=== PATIENT | male | born 1995 ===

== ENCOUNTER 2017-03-19 21:13 | Inpatient (IN) | payer MEDICAID ==
[2017-03-19 21:17] VITALS: BMI 32.5
--- NOTE | 2017-03-19 21:27 | ED PDOC ---
Arrival/HPI - General Chief Complaint: Male Genitourinary Time Seen by Provider: 03/19/17 21:20 Historian: Patient - History of Present Illness Narrative History of Present Illness (Text): 03/19/17 21:27 Manuel Cortes is a 21 year old male, whose past medical history includes cellulitis, who presents to the Emergency department complaining of inflammation , swelling, and discomfort to genital/scrotal area. Patient states he was admitted to [facility] [place] [facility] for the past 5 days for similar complaints and and recently discharged. Patient states he was treated with IV antibiotics and analgesics, sent home today, and told to take NSAIDs. Patient states swelling, redness, and pain to the area has gotten worse. Patient denies any history of known fever, chills, vomiting, diarrhea, urinary symptoms, back pain, headache, or any other complaints. Symptom Onset: Gradual Symptom Course: Unchanged Activities at Onset: Rest, Light Context: Home Past Medical History - Provider Review Nursing Documentation Reviewed: Yes - Infectious Disease Hx of Infectious Diseases: None - Psychiatric Hx Substance Use: Yes (weed) - Anesthesia Hx Anesthesia: No Family/Social History - Physician Review Nursing Documentation Reviewed: Yes Family/Social History: Unknown Family HX Smoking Status: Light Smoker < 10 Cigarettes Daily Hx Alcohol Use: Yes Frequency of alcohol use: Socially Hx Substance Use: Yes (weed) Allergies/Home Meds Allergies/Adverse Reactions: Allergies No Known Allergies Allergy (Verified 03/19/17 21:17) Home Medications: Home Meds Medication Instructions Recorded Confirmed No Known Home Med 03/19/17 03/19/17 Review of Systems - Physician Review All systems were reviewed & negative as marked: Yes - Review of Systems Constitutional: Normal. absent: Fevers Eyes: Normal ENT: Normal Respiratory: Normal. absent: SOB, Cough Cardiovascular: Normal. absent: Chest Pain Gastrointestinal: Normal. absent: Abdominal Pain, Diarrhea, Nausea, Vomiting Genitourinary Male: Other (+genital/scrotal swelling). absent: Dysuria, Frequency, Hematuria Musculoskeletal: Normal. absent: Back Pain, Neck Pain Skin: Normal. absent: Rash Neurological: Normal. absent: Headache, Dizziness Endocrine: Normal Hemo/Lymphatic: Normal Psychiatric: Normal Physical Exam Vital Signs Reviewed: Yes Vital Signs Temp Pulse Resp BP Pulse Ox 03/19/17 21:20 98.4 F 98 H 18 118/77 98 Temperature: Afebrile Blood Pressure: Normal Pulse: Regular Respiratory Rate: Normal Appearance: Positive for: Well-Appearing, Non-Toxic, Comfortable Pain Distress: None Mental Status: Positive for: Alert and Oriented X 3 - Systems Exam Head: Present: Atraumatic, Normocephalic Pupils: Present: PERRL Extroacular Muscles: Present: EOMI Conjunctiva: Present: Normal Mouth: Present: Moist Mucous Membranes Neck: Present: Normal Range of Motion Respiratory/Chest: Present: Clear to Auscultation, Good Air Exchange. No: Respiratory Distress, Accessory Muscle Use Cardiovascular: Present: Regular Rate and Rhythm, Normal S1, S2. No: Murmurs Abdomen: Present: Normal Bowel Sounds. No: Tenderness, Distention, Peritoneal Signs Genitourinary Male: Present: Testicle Tenderness (Diffuse palpable tenderness), Erythema (Confluent erythema to scrotum, induration to right posterior scrotal area. Extension of swelling/erythema to right inguinal area. Palpable right inguinal adenopathy), Testicle Swelling (Massive scrotal swelling), Other (Left testes palpated, right testes is difficult to palpate due to scrotal induration/ swelling). No: Penile Discharge Back: Present: Normal Inspection Upper Extremity: Present: Normal Inspection. No: Cyanosis, Edema Lower Extremity: Present: Normal Inspection. No: Edema Neurological: Present: GCS=15, CN II-XII Intact, Speech Normal Skin: Present: Warm, Dry, Normal Color. No: Rashes Lymphatic: Present: Inguinal Adenopathy (Right inguinal adenopathy) Psychiatric: Present: Alert, Oriented x 3, Normal Insight, Normal Concentration Medical Decision Making ED Course and Treatment: 03/19/17 21:27 Impression: 21 year old male complaining of inflammation, swelling, and discomfort to genital/scrotal area. Differential Diagnosis included but are not limited to: cellulitis Plan: -- US Testes -- Labs, blood culture -- IV fluids -- Reassess and disposition Progress Notes: 03/19/17 22:27 Case discussed with medical office supervisor associate application developer, who is aware and agrees with plan. 03/19/17 23:41 Reviewed sono, US Testes shows: Right testicle: Unremarkable in size measuring 5.5 x 2.7 x 3.7 cm. No intratesticular mass. No torsion. Microlithiasis is detected. Left testicle: Unremarkable in size measuring 5.8 x 2.8 x 3.5 cm. No intratesticular mass. No torsion. Microlithiasis is detected. Epididymides: Unremarkable in echogenicity and size. Scrotum: Avascular focus of mixed echogenicity is identified within the right scrotal wall, corresponding to the area of clinical concern. This focus measures 15 x 10 x 15 mm. This focus demonstrates increased through-transmission, suggesting a complex cyst. IMPRESSION: Findings within the right scrotal sac which suggest a history of prior trauma, possibly a hematocoele. The differential diagnosis also includes an extra testicular lipoma. Although a liposarcoma cannot be excluded. Further evaluation, nonemergently with contrast-enhanced MRI (with fat suppressed sequences) is suggested. 03/19/17 23:[address] Mojica, who is aware and agrees with plan. Accepts pt in to hospitalist service. [facility] vice president of news notified. - Lab Interpretations Lab Results: 03/19/17 22:01 03/19/17 22:01 Lab Results 03/19/17 22:01: WBC 8.9, RBC 4.70, Hgb 13.9 L, Hct 40.4 L, MCV 86.0, MCH 29.6, MCHC 34.4, RDW 12.6, Plt Count 254, MPV 11.5 H 03/19/17 22:01: Sodium 141, Potassium 4.0, Chloride 98, Carbon Dioxide 29, Anion Gap 18, BUN 11, Creatinine 0.8, Est GFR ( Amer) > 60, Est GFR (Non- Af Amer) > 60, Random Glucose 145 H, Calcium 9.8, Total Bilirubin 0.3, AST 22, ALT 29, Alkaline Phosphatase 102, Total Protein 7.5, Albumin 4.2, Globulin 3.3, Albumin/Globulin Ratio 1.3 I have reviewed the lab results: Yes - RAD Interpretation Radiology Orders: 03/19/17 21:49 TESTES DUPLEX COMPLETE [US] Stat Shear Helper: Radiologist - Medication Orders Current Medication Orders: Sodium Chloride (Sodium Chloride 0.9%) 1,000 mls @ 100 mls/hr IV .Q10H CRISTHIAN Last Admin: 03/19/17 22:10 Dose: 100 mls/hr Discontinued Medications Vancomycin HCl (Vancomycin 1gm) 1 gm in 250 mls @ 167 mls/hr IVPB STAT STA PRN Reason: Protocol Stop: 03/19/17 23:32 Last Admin: 03/19/17 23:54 Dose: 167 mls/hr Ceftriaxone Sodium (Rocephin 1 Gram Ivpb) 1 gm in 100 mls @ 200 mls/hr IV ONCE STA PRN Reason: Protocol Stop: 03/19/17 22:30 Last Admin: 03/19/17 22:11 Dose: 200 mls/hr Ketorolac Tromethamine (Toradol) 30 mg IVP ONCE ONE Stop: 03/19/17 22:19 Last Admin: 03/19/17 23:41 Dose: 30 mg - Scribe Statement The provider has reviewed the documentation as recorded by the Sweetie Lizama Provider Scribe Attestation: All medical record entries made by the Scribe were at my direction and personally dictated by me. I have reviewed the chart and agree that the record accurately reflects my personal performance of the history, physical exam, medical decision making, and the department course for this patient. I have also personally directed, reviewed, and agree with the discharge instructions and disposition. Disposition/Present on Arrival - Present on Arrival Any Indicators Present on Arrival: No History of DVT/PE: No History of Uncontrolled Diabetes: No Urinary Catheter: No History of Decub. Ulcer: No History Surgical Site Infection Following: None - Disposition Have Diagnosis and Disposition been Completed?: Yes Diagnosis: Cellulitis of scrotum Disposition: HOSPITALIZED Disposition Time: 23:57 Condition: STABLE Discharge Instructions (ExitCare): Cellulitis (ED) Referrals: Jamie Esparza, [Primary Care Provider] - Follow up with primary Forms: [employer] (Malay)
[2017-03-19] MEDS ORDERED: Sodium Chloride 0.9% 1,000 ML IV SCH (21:45)
[2017-03-19] MEDS ORDERED: cefTRIAXone 1 gm 1 GM/100 ML BAG IV STA (22:01)
[2017-03-19] MEDS ORDERED: Vancomycin 1gm in NS 250ml 1 GM/250 ML BAG IVPB STA (22:03)
[2017-03-19 22:19] LABS: HEMATOCRIT 40.4 % (42.0-52.0); MEAN CORPUSCULAR HEMOGLOBIN 29.6 pg (25.0-35.0); MEAN CORPUSCULAR HGB CONC 34.4 g/dl (31.0-37.0); MEAN PLATELET VOLUME 11.5 fl (7.0-11.0); RED CELL DISTRIBUTION WIDTH 12.6 % (11.5-14.5); WHITE BLOOD COUNT 8.9 10^3/ul (4.5-11.0)
[2017-03-19 22:27] LABS: ALB/GLOB RATIO 1.3 (1.1-1.8); ALKALINE PHOSPHATASE 102 U/L (38-133); ALT/SGPT 29 U/L (7-56); AST/SGOT 22 U/L (15-59); BILIRUBIN,TOTAL 0.3 mg/dL (0.2-1.3); BLOOD UREA NITROGEN 11 mg/dL (7-21); CALCIUM 9.8 mg/dL (8.4-10.5); CARBON DIOXIDE 29 mmol/L (21-33); CHLORIDE 98 mmol/L (98-107); GFR AFRICAN-AMERICAN > 60; GLUCOSE,RANDOM 145 mg/dL (70-110); SODIUM 141 mmol/L (132-148); TOTAL PROTEIN 7.5 g/dL (5.8-8.3)
--- NOTE | 2017-03-19 23:38 | US ---
EXAM: US Scrotum CLINICAL HISTORY: 21 years old, male; Pain; Scrotum pain; Additional info: Scrotal swelling TECHNIQUE: Real-time ultrasound of the scrotum with color Doppler and image documentation. COMPARISON: No relevant prior studies available. FINDINGS: Right testicle: Unremarkable in size measuring 5.5 x 2.7 x 3.7 cm. No intratesticular mass. No torsion. Microlithiasis is detected. Left testicle: Unremarkable in size measuring 5.8 x 2.8 x 3.5 cm. No intratesticular mass. No torsion. Microlithiasis is detected. Epididymides: Unremarkable in echogenicity and size. Scrotum: Avascular focus of mixed echogenicity is identified within the right scrotal wall, corresponding to the area of clinical concern. This focus measures 15 x 10 x 15 mm. This focus demonstrates increased through-transmission, suggesting a complex cyst. IMPRESSION: Findings within the right scrotal sac which suggest a history of prior trauma, possibly a hematocoele. The differential diagnosis also includes an extra testicular lipoma. Although a liposarcoma cannot be excluded. Further evaluation, nonemergently with contrast-enhanced MRI (with fat suppressed sequences) is suggested.
[2017-03-20 01:15] LABS: PH,URINE 7.5 (4.7-8.0); URINE BILIRUBIN SMALL (NEGATIVE); URINE BLOOD NEGATIVE (NEGATIVE); URINE GLUCOSE (UA) NEGATIVE (NEGATIVE); URINE KETONE TRACE mg/dL (NEGATIVE); URINE LEUKOCYTE ESTERASE NEGATIVE Leu/uL (NEGATIVE); URINE PROTEIN 30 mg/dL (<30 mg/dL)
[2017-03-20 01:21] LABS: URINE APPEARANCE CLEAR (CLEAR); URINE COLOR YELLOW (YELLOW)
--- NOTE | 2017-03-20 01:21 | CP.PCM.HP ---
<Sherman Simon - Last Filed: 03/20/17 05:11> History of Present Illness - History of Present Illness History of Present Illness: CC: Scrotal swelling HPI: 21 year old male with scrotal swelling, painless scrotal and perineal ulcers, and bilateral lymphadenopathy who was evaluated and treated at [facility] from 03/15- 03/19 for the aforementioned symptoms but presents to [facility] because he feel he has not improved. He states he was treated with IV antibiotics, analgesia, and tested for STI while at [facility]. He denies any knowledge in regards to the results of the test ordered or the etiology of his current symptoms and manifestations. He states after his hospital stay he was discharged with antibiotics, which he cannot recall, and Ibuprofen. He went back to work today and reports that his scrotum was quite irritating him given it was still enlarged and burnt along the groin area while he walked. He denies any fever, chills, dysuria, penile lesions/ulcerations, or pain or history of STI. He denies having any sexual contact within the last three months, male or female. 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 Present on Admission - Present on Admission Any Indicators Present on Admission: No Review of Systems - Constitutional Constitutional: absent: Chills, Headache, Snoring, Weakness - EENT Eyes: absent: Decreased Night Vision, Loss of Peripheral Vision Ears: absent: Decreased Hearing, Ear Discharge, Dizziness Nose/Mouth/Throat: absent: Sinus Pressure, Bleeding Gums, Halitosis - Cardiovascular Cardiovascular: absent: Chest Pain with Activity, Irregular Heart Rhythm, Leg Edema - Respiratory Respiratory: absent: As Per HPI, Pain on Inspiration, Excessive Mucous Production - Gastrointestinal Gastrointestinal: absent: Cramping, Diarrhea, Early Satiety - Genitourinary Genitourinary: absent: Change in Urinary Stream, Urinary Frequency, Urinary Urgency - Reproductive: Male Reproductive:Male: Genital Lesions - Musculoskeletal Musculoskeletal: absent: Limited Range of Motion, Myalgias, Numbness - Integumentary Integumentary: absent: New Lesions, Photosensitivity, Skin Ulcer - Neurological Neurological: absent: Dizziness, Headaches, Restless Legs - Psychiatric Psychiatric: absent: Behavioral Changes, Homicidal Ideation, Irritability - Endocrine Endocrine: absent: Excessive Sweating, Heat Intolorance, Increase in Ring/Shoe/ Hat Size - Hematologic/Lymphatic Hematologic: absent: Easy Bleeding, Easy Bruising Past Patient History - Infectious Disease Hx of Infectious Diseases: None - Past Social History Smoking Status: Light Smoker < 10 Cigarettes Daily - PSYCHIATRIC Hx Substance Use: Yes (weed) - SURGICAL HISTORY Hx Surgeries: No - ANESTHESIA Hx Anesthesia: No Meds Allergies/Adverse Reactions: Allergies Allergy/AdvReac Type Severity Reaction Status Date / Time No Known Allergies Allergy Verified 03/19/17 21:17 Physical Exam - Constitutional Appears: Well, No Acute Distress - Head Exam Head Exam: ATRAUMATIC, NORMOCEPHALIC - Eye Exam Eye Exam: EOMI, Normal appearance Pupil Exam: NORMAL ACCOMODATION, PERRL - ENT Exam ENT Exam: Mucous Membranes Moist, Normal Oropharynx - Neck Exam Neck exam: Positive for: Normal Inspection. Negative for: Lymphadenopathy, Tenderness - Respiratory Exam Respiratory Exam: Clear to Auscultation Bilateral, NORMAL BREATHING PATTERN. absent: Accessory Muscle Use - Cardiovascular Exam Cardiovascular Exam: RRR, +S1, +S2 - GI/Abdominal Exam GI & Abdominal Exam: Normal Bowel Sounds, Soft. absent: Rebound, Rigid - Exam Exam: Scrotal Swelling. absent: Circumcision, Uretheral Discharge External exam: Lesions Additional comments: scrotal swelling greater on right than left, painless ulcerated lesion along midline scrotal fold with ulcers in the perineal area, bilateral inguinal lymphadenopathy, malodorous discharge also present - Extremities Exam Extremities exam: Positive for: normal inspection. Negative for: joint swelling , normal capillary refill - Back Exam Back exam: NORMAL INSPECTION. absent: CVA tenderness (L), CVA tenderness (R) - Neurological Exam Neurological exam: CN II-XII Intact, Normal Gait, Oriented x3 - Psychiatric Exam Psychiatric exam: Normal Affect, Normal Mood - Skin Skin Exam: Dry, Intact, Normal Color, Warm Results - Vital Signs Recent Vital Signs: Last Vital Signs Temp 98.1 F 03/20/17 00:07 Pulse 92 H 03/20/17 00:07 Resp 16 03/20/17 00:07 BP 119/87 03/20/17 00:07 Pulse Ox 98 03/20/17 00:07 - Labs Result Diagrams: 03/19/17 22:01 03/19/17 22:01 Assessment & Plan - Assessment and Plan (Free Text) Assessment: 21 male presenting with scrotal swelling, some discomfort, and findings suspicious for cellulitis vs STI. Plan: 1) Scrotal cellulitis: US IMPRESSION: Findings within the right scrotal sac which suggest a history of prior trauma, possibly a hematocoele. The differential diagnosis also includes an extratesticular lipoma. Although a liposarcoma cannot be excluded. Further evaluation, nonemergently with contrast- enhanced MRI (with fat suppressed sequences) is suggested. - F/U CT A/P with IV contrast to better characterize the anatomy. Patient did have a palpable mass, also seen on US, and reactive lymphadenopathy - Urology consulted given the complex nature of the cyst, though this is not a urologic emergency -Patient does not have any systemic signs of infection such as fever or leukocytosis, but this certainbly could be a locally infectious process - Clinically, did not appear to be a cellulitis 2) STI, gonococcal or non-gonococcal LGV is on differential - Contact [facility] by obtaining patient's DEMETRIUS in order to avoid reordering tests already performed. - Patient admits to STI testing being performed in previous facility, and was agreeable to sign DEMETRIUS - Doxycycline and Rocephin IV empirically started - ID consulted - Date & Time Date: 03/20/17 Time: 02:23 <Kaiden Mojica P - Last Filed: 03/22/17 08:28> Results - Vital Signs Recent Vital Signs: Last Vital Signs Temp 98.5 F 03/21/17 08:50 Pulse 68 03/21/17 08:50 Resp 20 03/21/17 08:50 BP 107/63 03/21/17 08:50 Pulse Ox 99 03/21/17 08:50 - Labs Result Diagrams: 03/21/17 06:30 03/21/17 06:30 Attending/Attestation - Attestation I have personally seen and examined this patient.: Yes I have fully participated in the care of the patient.: Yes I have reviewed all pertinent clinical information: Yes Notes (Text): Patient comes with scrotal swelling, ulcers, groin pain on exam found to have b/ l inguinal LN huber, induration on right scrotal wall with area of deep blister on right side. Pain less ulcer on the left side, with small ulcers at areas of skin contact between 2 legs. USG findings as above. Patient had w/u done at [facility] and discharged on this day of ER visit. DD is likely w/u for pain less ulcer, secondary cellulitis, std, will get the w/ u done at [facility], emperic rocephin and doxycyline ordered, ID consultation.
[2017-03-20 01:32] LABS: URINE EPITHELIAL CELLS 0 - 2 /hpf (0-5); URINE RBC 0 - 2 /hpf (0-2); URINE WBC 0 - 2 /hpf (0-6)
[2017-03-20] MEDS ORDERED: Iohexol 350 MG/100 ML VIAL ONE (07:24)
[2017-03-20] MEDS: cefTRIAXone 1 gm 1 GM/100 ML BAG IVPB SCH (09:21)
[2017-03-20] MEDS ORDERED: HYDROmorphone 2 mg/ml ISec IVP PRN (10:33)
--- NOTE | 2017-03-20 11:19 | CP.PCM.CON ---
History of Present Illness - History of Present Illness History of Present Illness: Consult Note for Surgery Dr. Taylor Patient is a 21 year old male with no significant past medical history who presented to [facility] 03/20/17 with complaints of scrotal swelling on his right testicle which started on 03/12. 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 Two days later patient noted an increase in pain and swelling. Patient was admitted to [facility] 03/15 and remained until 03/19 for which he was receiving IV antibiotics and analgesics. Since patient's symptoms did not improve patient decided to come to [facility]. Patient denies recent sexual intercourse, fevers, chills, abdominal pain, dysuria, n/v/d, constipation, h/a. PMH: None PSH: None SH: alcohol assumption on occasion, smokes 1/2 pack a day PFH: DM II Past Patient History - Infectious Disease Hx of Infectious Diseases: None - Past Social History Smoking Status: Light Smoker < 10 Cigarettes Daily - MUSCULOSKELETAL/RHEUMATOLOGICAL Hx Falls: No - GENITOURINARY/GYNECOLOGICAL Other/Comment: SCROTAL EDEMA, RT SIDED REDNESS TO TESTICLES - PSYCHIATRIC Hx Substance Use: Yes (weed) - SURGICAL HISTORY Hx Surgeries: No - ANESTHESIA Hx Anesthesia: No Meds Allergies/Adverse Reactions: Allergies Allergy/AdvReac Type Severity Reaction Status Date / Time No Known Allergies Allergy Verified 03/19/17 21:17 - Medications Medications: Current Medications Doxycycline Hyclate (Doryx) 100 mg PO Q12 CRISTHIAN PRN Reason: Protocol Last Admin: 03/20/17 09:21 Dose: 100 mg Famotidine (Pepcid) 40 mg PO HS CRISTHIAN Hydromorphone HCl (Dilaudid) 2 mg IVP Q4H PRN PRN Reason: Pain, severe (8-10) Sodium Chloride (Sodium Chloride 0.9%) 1,000 mls @ 100 mls/hr IV .Q10H CRISTHIAN Last Admin: 03/19/17 22:10 Dose: 100 mls/hr Ceftriaxone Sodium (Rocephin 1 Gram Ivpb) 1 gm in 100 mls @ 100 mls/hr IVPB DAILY CRISTHIAN PRN Reason: Protocol Last Admin: 03/20/17 09:21 Dose: 100 mls/hr Ibuprofen (Motrin Tab) 600 mg PO Q6H PRN PRN Reason: Pain, moderate (4-7) Last Admin: 03/20/17 07:55 Dose: 600 mg Tramadol HCl (Ultram) 50 mg PO TID PRN PRN Reason: Pain, moderate (4-7) Physical Exam - Constitutional Appears: Well - Head Exam Head Exam: ATRAUMATIC, NORMAL INSPECTION, NORMOCEPHALIC - Eye Exam Eye Exam: Normal appearance - ENT Exam ENT Exam: Mucous Membranes Moist, Normal Exam - Respiratory Exam Respiratory Exam: Clear to Auscultation Bilateral, NORMAL BREATHING PATTERN - Cardiovascular Exam Cardiovascular Exam: REGULAR RHYTHM, +S1, +S2 - GI/Abdominal Exam GI & Abdominal Exam: Normal Bowel Sounds, Soft - Exam Exam: Scrotal Swelling, Testicular Tenderness. absent: Circumcision Additional comments: draining abscess on left inner thigh - Neurological Exam Neurological exam: Alert, CN II-XII Intact, Oriented x3 - Skin Skin Exam: Normal Color, Warm Results - Vital Signs Recent Vital Signs: Last Vital Signs Temp 98.1 F 03/20/17 01:27 Pulse 61 03/20/17 01:27 Resp 185 H 03/20/17 01:27 BP 108/62 03/20/17 01:27 Pulse Ox 98 03/20/17 01:10 - Labs Result Diagrams: 03/19/17 22:01 03/19/17 22:01 Labs: Laboratory Results - last 24 hr 03/20/17 01:00 Urine Color Yellow Urine Appearance Clear Urine pH 7.5 Ur Specific [place] 1.020 Urine Protein 30 H Urine Glucose (UA) Negative Urine Ketones Trace H Urine Blood Negative Urine Nitrate Negative Urine Bilirubin Small H Urine Urobilinogen 1.0 H Ur Leukocyte Esterase Negative Urine RBC 0 - 2 Urine WBC 0 - 2 Ur Epithelial Cells 0 - 2 Urine Other Mucus Assessment & Plan - Assessment and Plan (Free Text) Assessment: 1. Testicular abscess - Patient made NPO - c/w pain medicine regimen - c/w antibiotics - OR for I&D 3:30 Philippe French D.O. PGY1
--- NOTE | 2017-03-20 13:19 | CT ---
PROCEDURE: CT Abdomen and Pelvis with contrast HISTORY: right scrotal mass, bilateral inguinal lymphadenop COMPARISON: Scrotal ultrasound 03/19/2017 TECHNIQUE: Contrast dose: 100 cc of Omni 350 Radiation dose: Total exam DLP = 868 mGy-cm. This CT exam was performed using one or more of the following dose reduction techniques: Automated exposure control, adjustment of the mA and/or kV according to patient size, and/or use of iterative reconstruction technique. FINDINGS: LOWER THORAX: Unremarkable. LIVER: Unremarkable. No gross lesion or ductal dilatation. GALLBLADDER AND BILE DUCTS: Unremarkable. PANCREAS: Unremarkable. No gross lesion or ductal dilatation. SPLEEN: Unremarkable. ADRENALS: Unremarkable. No mass. KIDNEYS AND URETERS: Unremarkable. No hydronephrosis. No solid mass. VASCULATURE: Unremarkable. No aortic aneurysm. BOWEL: Unremarkable. No obstruction. No gross mural thickening. APPENDIX: Normal appendix. PERITONEUM: Unremarkable. No free fluid. No free air. LYMPH NODES: There is extensive bilateral inguinal adenopathy with the largest nodes measuring 2 cm. BLADDER: Unremarkable. REPRODUCTIVE: Bilateral hydroceles are seen. There is a separate thick-walled fluid collection along the right side of the scrotum measuring 21 x 51 mm as seen on coronal image 40. There is a separate round collection measuring 14 mm seen on image 28. These findings are suspicious for abscess within the wall of the scrotum. This was also reported on ultrasound BONES: No acute fracture. OTHER FINDINGS: None. IMPRESSION: Inflammatory changes and fluid collections along the right side of the scrotum suspicious for abscess. Bilateral inguinal adenopathy
[2017-03-20] MEDS ORDERED: Midazolam 2 MG/2 ML VIAL ONE (15:28)
[2017-03-20] MEDS ORDERED: Propofol 10 mg/ml Inj (20 ML) ONE ×2 (15:28→15:55)
[2017-03-20] MEDS ORDERED: Lidocaine 2% Inj (20ml) ONE (15:33)
[2017-03-20] MEDS ORDERED: Bupivacaine 0.5% Inj(30mL) ONE (15:34)
[2017-03-20] MEDS ORDERED: Lidocaine 1% Inj (20ml) ONE (15:34)
--- NOTE | 2017-03-20 15:52 | CP.PCM.CON ---
History of Present Illness - History of Present Illness History of Present Illness: Infectious Disease Consultation: March 20, 2017 21 yo male with cellulitis and drainage from the scrotum as well as ulcerations. He was in [facility] from 03/15 to 03/19 for treatment. I will check the results at [facility]. He denies sexual contact recently. He does no know the results of the tests taken at [facility]. PMHx: denies PSHx: denies Allergies: NKDA Social Hx: tobacco 1/2 ppd, marijuana use, multiple sexual partners. He works in [employer]. Active Medications Doxycycline Hyclate (Doryx) 100 mg PO Q12 CRISTHIAN PRN Reason: Protocol Last Admin: 03/20/17 09:21 Dose: 100 mg Famotidine (Pepcid) 40 mg PO HS CRISTHIAN Hydromorphone HCl (Dilaudid) 2 mg IVP Q4H PRN PRN Reason: Pain, severe (8-10) Sodium Chloride (Sodium Chloride 0.9%) 1,000 mls @ 100 mls/hr IV .Q10H [facility] Last Admin: 03/19/17 22:10 Dose: 100 mls/hr Ceftriaxone Sodium (Rocephin 1 Gram Ivpb) 1 gm in 100 mls @ 100 mls/hr IVPB DAILY CRISTHIAN PRN Reason: Protocol Last Admin: 03/20/17 09:21 Dose: 100 mls/hr Ibuprofen (Motrin Tab) 600 mg PO Q6H PRN PRN Reason: Pain, moderate (4-7) Last Admin: 03/20/17 07:55 Dose: 600 mg Tramadol HCl (Ultram) 50 mg PO TID PRN PRN Reason: Pain, moderate (4-7) Family Hx: none given ROS: scrotal pain and swelling. He denies fevers, chills, nausea, vomiting, diarrhea , headaches, dizziness, chest pain, melena, hematuria, hematemesis, hematochezia , depression, anxiety Past Patient History - Infectious Disease Hx of Infectious Diseases: None - Past Social History Smoking Status: Light Smoker < 10 Cigarettes Daily - HEMATOLOGICAL/ONCOLOGICAL Hx Blood Transfusions: No Hx Blood Transfusion Reaction: No - MUSCULOSKELETAL/RHEUMATOLOGICAL Hx Falls: No - GENITOURINARY/GYNECOLOGICAL Other/Comment: SCROTAL EDEMA, RT SIDED REDNESS TO TESTICLES - PSYCHIATRIC Hx Substance Use: Yes (weed) - SURGICAL HISTORY Hx Surgeries: No - ANESTHESIA Hx Anesthesia: No Meds Allergies/Adverse Reactions: Allergies Allergy/AdvReac Type Severity Reaction Status Date / Time No Known Allergies Allergy Verified 03/19/17 21:17 - Medications Medications: Current Medications Doxycycline Hyclate (Doryx) 100 mg PO Q12 CRISTHIAN PRN Reason: Protocol Last Admin: 03/20/17 09:21 Dose: 100 mg Famotidine (Pepcid) 40 mg PO HS CRISTHIAN Hydromorphone HCl (Dilaudid) 2 mg IVP Q4H PRN PRN Reason: Pain, severe (8-10) Sodium Chloride (Sodium Chloride 0.9%) 1,000 mls @ 100 mls/hr IV .Q10H CRISTHIAN Last Admin: 03/19/17 22:10 Dose: 100 mls/hr Ceftriaxone Sodium (Rocephin 1 Gram Ivpb) 1 gm in 100 mls @ 100 mls/hr IVPB DAILY CRISTHIAN PRN Reason: Protocol Last Admin: 03/20/17 09:21 Dose: 100 mls/hr Ibuprofen (Motrin Tab) 600 mg PO Q6H PRN PRN Reason: Pain, moderate (4-7) Last Admin: 03/20/17 07:55 Dose: 600 mg Tramadol HCl (Ultram) 50 mg PO TID PRN PRN Reason: Pain, moderate (4-7) Physical Exam - Constitutional Appears: Non-toxic, No Acute Distress - Head Exam Head Exam: ATRAUMATIC, NORMOCEPHALIC - Eye Exam Eye Exam: EOMI, PERRL Pupil Exam: NORMAL ACCOMODATION, PERRL - ENT Exam ENT Exam: Mucous Membranes Moist, Normal External Ear Exam, TM's Normal Bilaterally - Neck Exam Neck exam: Positive for: Full Rom, Normal Inspection - Respiratory Exam Respiratory Exam: Clear to Auscultation Bilateral, NORMAL BREATHING PATTERN. absent: Rales, Rhonchi, Wheezes - Cardiovascular Exam Cardiovascular Exam: REGULAR RHYTHM, RRR, +S1, +S2 - GI/Abdominal Exam GI & Abdominal Exam: Normal Bowel Sounds, Soft. absent: Distended, Tenderness - Exam Exam: Scrotal Swelling, Testicular Tenderness. absent: NORMAL INSPECTION Additional comments: scrotal swelling greater on right than left, painless ulcerated lesion along midline scrotal fold with ulcers in the perineal area, bilateral inguinal lymphadenopathy, malodorous discharge also present - Extremities Exam Extremities exam: Positive for: full ROM, normal inspection - Neurological Exam Neurological exam: Alert, CN II-XII Intact, Oriented x3 - Psychiatric Exam Psychiatric exam: Normal Affect, Normal Mood - Skin Additional comments: normal except for scrotum (described above). Results - Vital Signs Recent Vital Signs: Last Vital Signs Temp 98 F 03/20/17 14:40 Pulse 55 L 03/20/17 14:40 Resp 20 03/20/17 14:40 BP 144/62 03/20/17 14:40 Pulse Ox 98 03/20/17 14:40 - Labs Result Diagrams: 03/19/17 22:01 03/19/17 22:01 Assessment & Plan - Assessment and Plan (Free Text) Assessment: 21 yo male with scrotal cellulitis and swelling with ulcerations and drainage. Cellulitis versus other etiology such as STD. Will review records at [facility]. On Doxycycline and Rocephin. Start Vancomycin and stop Doxycycline. May need to retest for STD depending on tests done at [facility]. Supportive care. Local wound care. Thank you for allowing me to participate in the care of the patient, we will follow with you.
[2017-03-20] MEDS ORDERED: Lactated Ringer's 1,000 ML IV SCH (16:46)
[2017-03-20] MEDS ORDERED: HYDROmorphone 0.5 mg/0.5 ml ISec IVP PRN (16:46)
--- NOTE | 2017-03-20 16:47 | PCM.SURG1 ---
Surgeon's Initial Post Op Note - Surgeon's Notes Surgeon: Dr. Taylor Utility Bill Complaints Investigator: Dr. Gutierrez PGY3, Dr. Omalley PGY1 Type of Anesthesia: General LMA Pre-Operative Diagnosis: right scrotal abscess, left groin abscess Operative Findings: see op report Post-Operative Diagnosis: same Operation Performed: right scrotal abscess incision and drainage w/ cavity exploration and blunt debridement. Left groin abscess drainage Specimen/Specimens Removed: right scrotal abscess culture and left groin abscess culture Estimated Blood Loss: EBL {In ML}: 25 Blood Products Given: N/A Drains Used: No Drains Post-Op Condition: Good Date of Surgery/Procedure: 03/20/17 Time of Surgery/Procedure: 16:47
[2017-03-20] MEDS ORDERED: Acetaminophen IV IVPB ONE (16:58)
[2017-03-20] MEDS: Vancomycin 1gm in NS 250ml 1 GM/250 ML BAG IVPB SCH (18:01)
[2017-03-20] MEDS: HYDROmorphone 0.5 mg/0.5 ml ISec IVP PRN ×2 (18:21→22:10)
[2017-03-21] MEDS: Vancomycin 1gm in NS 250ml 1 GM/250 ML BAG IVPB SCH (03:18)
[2017-03-21] MEDS: HYDROmorphone 0.5 mg/0.5 ml ISec IVP PRN ×2 (03:19→06:51)
[2017-03-21 07:13] LABS: HEMATOCRIT 40.5 % (42.0-52.0); MEAN CORPUSCULAR HEMOGLOBIN 29.3 pg (25.0-35.0); MEAN CORPUSCULAR HGB CONC 34.8 g/dl (31.0-37.0); MEAN PLATELET VOLUME 11.5 fl (7.0-11.0); RED CELL DISTRIBUTION WIDTH 12.5 % (11.5-14.5); WHITE BLOOD COUNT 12.5 10^3/ul (4.5-11.0)
[2017-03-21 07:27] LABS: ALB/GLOB RATIO 1.2 (1.1-1.8); ALKALINE PHOSPHATASE 96 U/L (38-133); ALT/SGPT 34 U/L (7-56); AST/SGOT 22 U/L (15-59); BILIRUBIN,TOTAL 0.4 mg/dL (0.2-1.3); BLOOD UREA NITROGEN 7 mg/dL (7-21); CALCIUM 9.6 mg/dL (8.4-10.5); CARBON DIOXIDE 26 mmol/L (21-33); CHLORIDE 102 mmol/L (95-110); GFR AFRICAN-AMERICAN > 60; GLUCOSE,RANDOM 101 mg/dL (70-110); POTASSIUM 4.1 mmol/L (3.6-5.0); SODIUM 140 mmol/L (132-148); TOTAL PROTEIN 7.1 g/dL (5.8-8.3)
[2017-03-21 08:51] VITALS: BP 107/63; PULSE 68; RESP 20; TEMP 98.5; O2SAT 99
[2017-03-21] MEDS: cefTRIAXone 1 gm 1 GM/100 ML BAG IVPB SCH (09:25)
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
--- NOTE | 2017-04-11 11:46 | OP ---
SURGEON: Dr. Taylor. EXERCISE SCIENTIST: Dr. Gutierrez and Dr. Omalley. PREOPERATIVE DIAGNOSES: Right scrotal abscess and left groin abscess. OPERATION PERFORMED: Right scrotal abscess incision and drainage and drainage of the left groin abscess. DESCRIPTION OF PROCEDURE: In the operating room, the patient was identified by name, name of procedure, laterality, placed in lithotomy position. After general anesthesia, the time-out was obtained. The previously marked areas were marked. The consent was seen and the patient was then having been prepped and draped with adequate anesthesia, the right scrotal abscess was aspirated and opened, it was explored and packed. The left groin abscess was much smaller; it was opened, irrigated and packed. The patient was taken to recovery room in good condition after sponge and needle count declared correct. No drains. This was well tolerated. James Taylor MD
== END 2017-03-21 11:42 | disposition left against medical advice (07) | DRG 468 ==
LOC: ED 21:13 → ERH 23:56 → 3RSO 03-20 01:17 → OBSVTOIN 03-20 11:08
PROVIDERS: ADMIT Internal Medicine; ATTEND Internal Medicine
PROC: 0Y960ZZ Drainage of Left Inguinal Region, Open Approach (ICD-10-PCS; 2017-03-20)
PROC: 0V950ZZ Drainage of Scrotum, Open Approach (ICD-10-PCS; principal; 2017-03-20 13:30)
DX: N49.2 Inflammatory disorders of scrotum (principal); L02.214 Cutaneous abscess of groin; F17.210 Nicotine dependence, cigarettes, uncomplicated; R59.1 Generalized enlarged lymph nodes; F12.90 Cannabis use, unspecified, uncomplicated; N50.89 Other specified disorders of the male genital organs

== ENCOUNTER 2017-03-22 11:17 | Emergency (ER) | payer MEDICAID ==
[2017-03-22 11:17] VITALS: BMI 32.5
[2017-03-22 11:38] VITALS: BP 132/71; PULSE 67; RESP 18; TEMP 98.5; O2SAT 99
--- NOTE | 2017-03-22 12:06 | ED PDOC ---
Arrival/HPI - General Chief Complaint: Medical Clearance Time Seen by Provider: 03/22/17 12:03 Historian: Patient - History of Present Illness Narrative History of Present Illness (Text): 03/22/17 12:08 21 yo M presents with wound check and abscess packing removal to the R scrotum and L thigh. Pt states that he had I&D performed a few days ago, currently is taking antibiotics. Patient reports improvement of pain, redness and swelling. Denies any fever, chills, abdominal pain, nausea, vomiting, urinary symptoms. Otherwise has no other complaints. Past Medical History - Provider Review Nursing Documentation Reviewed: Yes - Infectious Disease Hx of Infectious Diseases: None - Cardiac Hx Cardiac Disorders: No - Pulmonary Hx Respiratory Disorders: No - Neurological Hx Neurological Disorder: No - HEENT Hx HEENT Disorder: No - Renal Hx Renal Disorder: No - Endocrine/Metabolic Hx Endocrine Disorders: No - Hematological/Oncological Hx Blood Transfusions: No Hx Blood Transfusion Reaction: No - Integumentary Hx Dermatological Disorder: No - Musculoskeletal/Rheumatological Hx Falls: No - Gastrointestinal Hx Gastrointestinal Disorders: No - Genitourinary/Gynecological Hx Genitourinary Disorders: No Other/Comment: SCROTAL EDEMA, RT SIDED REDNESS TO TESTICLES - Psychiatric Hx Psychophysiologic Disorder: No Hx Substance Use: Yes (weed) - Anesthesia Hx Anesthesia: No Family/Social History - Physician Review Nursing Documentation Reviewed: Yes Family/Social History: No Known Family HX Smoking Status: Light Smoker < 10 Cigarettes Daily Hx Alcohol Use: Yes (SOCIAL) Hx Substance Use: Yes (weed) Allergies/Home Meds Allergies/Adverse Reactions: Allergies No Known Allergies Allergy (Verified 03/19/17 21:17) Home Medications: Home Meds Medication Instructions Recorded Confirmed No Known Home Med 03/22/17 03/22/17 Review of Systems - Review of Systems Constitutional: Normal. absent: Fatigue, Weight Change, Fevers Genitourinary Male: Normal. absent: Dysuria, Frequency, Hematuria Musculoskeletal: Normal. absent: Arthralgias, Back Pain Skin: Normal, Abscess. absent: Rash, Pruritis, Skin Lesions Physical Exam Vital Signs Reviewed: Yes Vital Signs Temp Pulse Resp BP Pulse Ox 03/22/17 11:35 98.5 F 67 18 132/71 99 Temperature: Afebrile Blood Pressure: Normal Pulse: Regular Respiratory Rate: Normal Appearance: Positive for: Well-Appearing, Non-Toxic, Comfortable Pain Distress: None Mental Status: Positive for: Alert and Oriented X 3 - Systems Exam Abdomen: No: Tenderness, Distention, Rebound, Guarding Lower Extremity: Present: Normal Inspection, NORMAL PULSES, Normal ROM, Neurovascularly Intact, Capillary Refill < 2 s. No: Edema, Tenderness, Swelling , Erythema, Deformity, Temperature Abnormalties Neurological: Present: GCS=15, CN II-XII Intact, Motor Func Grossly Intact, Normal Sensory Function Skin: Present: Warm, Dry, Normal Color, Abscess (+healing packed abscess to the R scrotum with no erythema, edema or tenderness, +healing packed abscess to the L upper inner thigh with no erythema, edema or tenderness (male RN was present during the entire exam as a sumac tanner)). No: Rashes Lymphatic: No: Inguinal Adenopathy Medical Decision Making ED Course and Treatment: 03/22/17 12:04 21-year-old male presents with wound check and abscess packing removal to the scrotum and the left thigh. Both wound packing removal was removed from the right side of the scrotum and the left upper inner thigh with ease, no further drainage noted on exam, no residual erythema, edema or tenderness noted on exam. Patient instructed on proper wound care. Advised to take [id number] NSAIDs for pain and finish antibiotics. Advised to follow up with primary care physician in 1-2 days without fail. Return to the emergency room at any time for any new or worsening symptoms. Patient states he fully agrees with and understands discharge instructions. States that he agrees with the plan and disposition. Verbalized and repeated discharge instructions and plan. I have given the patient opportunity to ask any additional questions. - PA / KILN SETTER / Resident Statement MD/DO has reviewed & agrees with the documentation as recorded. Disposition/Present on Arrival - Present on Arrival Any Indicators Present on Arrival: No History of DVT/PE: No History of Uncontrolled Diabetes: No Urinary Catheter: No History of Decub. Ulcer: No History Surgical Site Infection Following: None - Disposition Have Diagnosis and Disposition been Completed?: Yes Diagnosis: Wound check, abscess Disposition: HOME/ ROUTINE Disposition Time: 12:00 Patient Plan: Discharge Patient Problems: Current Active Problems Problem Status Onset Wound check, abscess Acute Condition: STABLE Discharge Instructions (ExitCare): Acute Wound Care (ED) Print Language: BULGARIAN Additional Instructions: Thank you for letting us take care of you today. You were treated for wound check - abscess. The emergency medical care you received today was directed at your acute symptoms. Continue taking her antibiotics. Take [id number] Motrin as needed for pain. It may take several days for your symptoms to resolve. Return to the Emergency Department if your symptoms worsen, do not improve, or if you have any other problems. Please contact your doctor in 2 days for re-evaluation and follow up. Bring any paperwork you were given at discharge with you along with any medications you are taking to your follow up visit. Our treatment cannot replace ongoing medical care by a primary care provider (PCP) outside of the emergency department. Thank you for allowing the [facility] team to be part of your care today. Referrals: PCP,NO [Primary Care Provider] - Follow up with primary James Taylor MD [Staff Provider] - Follow up with primary Forms: [employer] ([place]), WORK NOTE
== END 2017-03-22 12:18 | disposition home or self-care (01) ==
LOC: ED 11:17
DX: Z51.89 Encounter for other specified aftercare (principal)

== ENCOUNTER 2017-07-29 12:09 | Inpatient (IN) | payer MEDICAID ==
[2017-07-29] MEDS ORDERED: Vancomycin 500 mg Inj IVPB STA (13:15)
[2017-07-29] MEDS ORDERED: Piperacillin/Tazobact 3.375 gm 100 ML IVPB STA (13:15)
--- NOTE | 2017-07-29 13:34 | ED PDOC ---
Arrival/HPI - General Chief Complaint: Abnormal Skin Integrity Time Seen by Provider: 07/29/17 13:13 Historian: Patient - History of Present Illness Narrative History of Present Illness (Text): 07/29/17 13:30 A 21 year old male, whose past medical history includes cellulitis of the scrotum, presents to the emergency department with a left sided cyst on the scrotum. The patient reports that he has a cyst on the left side of his scrotum and it is very painful and he notes that this has happened in the past on his right side and he underwent surgery to have it removed. The patient denies any dysuria, chest pain, abdominal pain, fever, or any other complaints at this time. Time/Duration: < week Symptom Onset: Gradual Symptom Course: Unchanged Quality: Other (cyst ) Activities at Onset: Light Context: Sitting, Standing, Walking, Home, Work Past Medical History - Provider Review Nursing Documentation Reviewed: Yes - Infectious Disease Hx of Infectious Diseases: None - Cardiac Hx Cardiac Disorders: No - Pulmonary Hx Respiratory Disorders: No - Neurological Hx Neurological Disorder: No - HEENT Hx HEENT Disorder: No - Renal Hx Renal Disorder: No - Endocrine/Metabolic Hx Endocrine Disorders: No - Hematological/Oncological Hx Blood Disorders: No - Integumentary Hx Dermatological Disorder: Yes Other/Comment: SKIN ABSCESS - Musculoskeletal/Rheumatological Hx Musculoskeletal Disorders: No Hx Falls: No - Gastrointestinal Hx Gastrointestinal Disorders: No - Genitourinary/Gynecological Hx Genitourinary Disorders: Yes Other/Comment: SCROTAL EDEMA, RT SIDED REDNESS TO TESTICLES - Psychiatric Hx Psychophysiologic Disorder: No Hx Substance Use: Yes (weed) - Anesthesia Hx Anesthesia: No Family/Social History - Physician Review Nursing Documentation Reviewed: Yes Family/Social History: No Known Family HX Smoking Status: Light Smoker < 10 Cigarettes Daily Hx Alcohol Use: Yes (SOCIAL) Hx Substance Use: Yes (weed) Allergies/Home Meds Allergies/Adverse Reactions: Allergies No Known Allergies Allergy (Verified 07/29/17 12:35) Review of Systems - Physician Review All systems were reviewed & negative as marked: Yes - Review of Systems Constitutional: absent: Fevers Gastrointestinal: absent: Abdominal Pain Genitourinary Male: Other (cyst on left side of scrotum ). absent: Dysuria Physical Exam Vital Signs Reviewed: Yes Vital Signs Temp Pulse Resp BP Pulse Ox 07/29/17 13:50 69 18 125/65 98 07/29/17 12:45 98.1 F 71 18 127/66 98 07/29/17 12:35 98.1 F 71 16 127/66 98 Temperature: Afebrile Blood Pressure: Normal Pulse: Regular Respiratory Rate: Normal Appearance: Positive for: Well-Appearing, Non-Toxic, Comfortable Pain Distress: None Mental Status: Positive for: Alert and Oriented X 3 - Systems Exam Head: Present: Atraumatic, Normocephalic Pupils: Present: PERRL Extroacular Muscles: Present: EOMI Conjunctiva: Present: Normal Mouth: Present: Moist Mucous Membranes Neck: Present: Normal Range of Motion Respiratory/Chest: Present: Clear to Auscultation, Good Air Exchange. No: Respiratory Distress, Accessory Muscle Use Cardiovascular: Present: Regular Rate and Rhythm, Normal S1, S2. No: Murmurs Abdomen: Present: Normal Bowel Sounds. No: Tenderness, Distention, Peritoneal Signs Genitourinary Male: Present: Testicle Tenderness, Testicle Swelling (left side ) , Other (induration; perineal drainage) Back: Present: Normal Inspection Upper Extremity: Present: Normal Inspection. No: Cyanosis, Edema Lower Extremity: Present: Normal Inspection. No: Edema Neurological: Present: GCS=15, CN II-XII Intact, Speech Normal Skin: Present: Warm, Dry, Normal Color. No: Rashes Psychiatric: Present: Alert, Oriented x 3, Normal Insight, Normal Concentration Medical Decision Making - Medication Orders Current Medication Orders: Discontinued Medications Acetaminophen (Tylenol 650 Mg Supp) 650 mg RC Q4H PRN PRN Reason: Fever >100.4 F Famotidine (Pepcid) 20 mg IVP DAILY [facility] Last Admin: 07/31/17 09:35 Dose: 20 mg IVP Administration Document 07/31/17 09:35 LMN (Rec: 07/31/17 09:35 LMN [facility] [id number]) Charges for Administration # of IVP Administrations 1 Hydromorphone HCl (Dilaudid) 0.5 mg IVP Q15M PRN PRN Reason: Pain, moderate (4-7) Stop: 07/30/17 19:11 Last Admin: 07/30/17 17:25 Dose: 0.5 mg Re-Assess: MAR Pain Assessment Document 07/30/17 18:25 LMN (Rec: 07/30/17 18:52 LMN [id number]) Pain Reassessment Is this a pain reassessment? Yes Sleep Is patient sleeping during reassessment? Yes Hydromorphone HCl (Dilaudid) 1 mg IVP STAT STA Stop: 07/30/17 17:11 Last Admin: 07/30/17 18:59 Dose: 1 mg MAR Pain Assessment Document 07/30/17 18:59 LMN (Rec: 07/30/17 19:01 LMN [facility] [id number]) Pain Reassessment Is this a pain reassessment? Yes Presence of Pain Presence of Pain Yes Pain Scale Used Pain Scale Used Numeric Location Pain Location Body Site Groin Description Description Constant Intensity of Pain at present 9 IVP Administration Document 07/30/17 18:59 LMN (Rec: 07/30/17 19:01 LMN [facility] [id number]) Charges for Administration # of IVP Administrations 1 Hydromorphone HCl (Dilaudid) 1 mg IVP STAT STA Stop: 07/30/17 17:26 Piperacillin Sod/Tazobactam Sod (Zosyn 3.375 In Ns 100ml) 100 mls @ 200 mls/hr IVPB STAT STA PRN Reason: Protocol Stop: 07/29/17 13:44 Last Admin: 07/29/17 13:55 Dose: 200 mls/hr eMAR Start Stop Document 07/29/17 13:55 SF (Rec: 07/29/17 14:28 SF [facility] [id number]) Intravenous Solution Start Date 07/29/17 Start Time 13:55 End Date 07/29/17 End time 14:25 Total Infusion Time 30 Vancomycin HCl 1.25 gm/ Sodium (Chloride) 250 mls @ 167 mls/hr IVPB ONCE ONE Stop: 07/29/17 14:59 Last Admin: 07/29/17 14:27 Dose: 167 mls/hr eMAR Start Stop Document 07/29/17 14:27 SF (Rec: 07/29/17 14:27 SF [facility] [id number]) Intravenous Solution Start Date 07/29/17 Start Time 14:27 End Date 07/29/17 End time 15:58 Total Infusion Time 91 Ceftriaxone Sodium (Rocephin 2 Gm Ivpb) 2 gm in 100 mls @ 100 mls/hr IVPB DAILY [facility] PRN Reason: Protocol Last Admin: 08/01/17 09:45 Dose: 100 mls/hr eMAR Start Stop Document 08/01/17 09:45 MJO (Rec: 08/01/17 09:45 MJO [facility] [id number]) Intravenous Solution Start Date 08/01/17 Start Time 09:45 End Date 08/01/17 End time 10:45 Total Infusion Time 60 Vancomycin HCl 1.25 gm/ Sodium (Chloride) 250 mls @ 167 mls/hr IVPB Q12 [facility] Last Admin: 08/01/17 09:49 Dose: 167 mls/hr eMAR Start Stop Document 08/01/17 09:49 MJO (Rec: 08/01/17 09:49 MJO [facility] [id number]) Intravenous Solution Start Date 08/01/17 Start Time 09:49 End Date 08/01/17 End time 11:20 Total Infusion Time 91 Sodium Chloride (Sodium Chloride 0.9%) 1,000 mls @ 125 mls/hr IV .Q8H [facility] Last Admin: 08/01/17 04:03 Dose: 125 mls/hr eMAR Start Stop Document 08/01/17 04:03 IMT (Rec: 08/01/17 04:03 IMT [id number]) Intravenous Solution Start Date 08/01/17 Start Time 04:00 Lactated Ringer's (Lactated Ringer's) 1,000 mls @ 75 mls/hr IV .[id number] [facility] Stop: 07/30/17 19:16 Ketorolac Tromethamine (Toradol) 30 mg IM ONCE ONE Stop: 07/30/17 17:11 Morphine Sulfate (Morphine) 2 mg IVP Q4 PRN PRN Reason: Pain, moderate (4-7) Last Admin: 08/01/17 16:45 Dose: 2 mg MAR Pain Assessment Document 08/01/17 16:45 MJO (Rec: 08/01/17 16:45 MJO [facility] [id number]) Pain Reassessment Is this a pain reassessment? No Sleep Is patient sleeping during reassessment? No Presence of Pain Presence of Pain Yes Pain Scale Used Pain Scale Used Numeric Location Upper or Lower Lower Pain Location Body Site Abdomen Groin Description Description Intermittent Intensity of Pain at present 9 Pain Behavior Irritability Facial Grimacing Alleviating Factors/Management Medication Techniques Alleviating Factors Medication IVP Administration Document 08/01/17 16:45 MJO (Rec: 08/01/17 16:45 MJO [facility] [id number]) Charges for Administration # of IVP Administrations 1 Morphine Sulfate (Morphine) 2 mg IVP STAT STA Stop: 07/29/17 21:29 Last Admin: 07/29/17 21:32 Dose: 2 mg MAR Pain Assessment Document 07/29/17 21:32 MJ (Rec: 07/29/17 21:32 MJ [id number]) Pain Reassessment Is this a pain reassessment? No Sleep Is patient sleeping during reassessment? No Presence of Pain Presence of Pain Yes Pain Scale Used Pain Scale Used Numeric Description Description Constant Intensity of Pain at present 7 Pain Behavior Moaning Alleviating Factors/Management Medication Techniques Alleviating Factors Medication IVP Administration Document 07/29/17 21:32 MJ (Rec: 07/29/17 21:32 MJ [id number]) Charges for Administration # of IVP Administrations 1 Re-Assess: [facility] Pain Assessment Document 07/29/17 22:32 MJ (Rec: 07/30/17 00:02 MJ [id number]) Pain Reassessment Is this a pain reassessment? Yes Sleep Is patient sleeping during reassessment? Yes Morphine Sulfate (Morphine) 2 mg IM STAT STA Stop: 07/30/17 23:36 Last Admin: 07/30/17 23:46 Dose: 2 mg MAR Pain Assessment Document 07/30/17 23:46 MJ (Rec: 07/30/17 23:46 MJ [facility] [id number]) Pain Reassessment Is this a pain reassessment? No Sleep Is patient sleeping during reassessment? No Presence of Pain Presence of Pain Yes Pain Scale Used Pain Scale Used Numeric Location Pain Location Body Site Groin Description Description Constant IM Administration Charges Document 07/30/17 23:46 MJ (Rec: 07/30/17 23:46 MJ [id number]) Charges for Administration # of IM Administrations 1 Re-Assess: [facility] Pain Assessment Document 07/31/17 00:46 MJ (Rec: 07/31/17 09:28 MJ [id number]) Pain Reassessment Is this a pain reassessment? Yes Sleep Is patient sleeping during reassessment? Yes Morphine Sulfate (Morphine) 2 mg IVP STAT STA Stop: 08/01/17 10:27 Last Admin: 08/01/17 10:37 Dose: 2 mg [facility] Pain Assessment Document 08/01/17 10:37 MJO (Rec: 08/01/17 10:38 MJO [facility] [id number]) Pain Reassessment Is this a pain reassessment? Yes Sleep Is patient sleeping during reassessment? No Presence of Pain Presence of Pain Yes Pain Scale Used Pain Scale Used Numeric Location Pain Location Body Site Groin Description Description Acute Site Observation prior to dressing change as per resident Pain Behavior Facial Grimacing Alleviating Factors/Management Medication Techniques Alleviating Factors Medication IVP Administration Document 08/01/17 10:37 MJO (Rec: 08/01/17 10:38 MJO [facility] [id number]) Charges for Administration # of IVP Administrations 1 Ondansetron HCl (Zofran Inj) 4 mg IVP ONCE PRN PRN Reason: Nausea/Vomiting Stop: 07/30/17 23:59 Last Admin: 07/30/17 19:47 Dose: 4 mg IVP Administration Document 07/30/17 19:47 LMN (Rec: 07/30/17 19:47 LMN [facility] [id number]) Charges for Administration # of IVP Administrations 1 Oxycodone/Acetaminophen (Percocet 5/325 Mg Tab) 1 tab PO Q4H PRN PRN Reason: Pain, Mild (1-3) Stop: 08/04/17 09:09 Last Admin: 08/01/17 13:26 Dose: 1 tab [facility] Pain Assessment Document 08/01/17 13:26 MJO (Rec: 08/01/17 13:27 MJO [facility] [id number]) Pain Reassessment Is this a pain reassessment? No Sleep Is patient sleeping during reassessment? No Presence of Pain Presence of Pain Yes Pain Scale Used Pain Scale Used Numeric Location Upper or Lower Lower Pain Location Body Site Abdomen Groin Description Description Intermittent Intensity of Pain at present 7 Pain Behavior Facial Grimacing Alleviating Factors/Management Medication Techniques Alleviating Factors Medication Re-Assess: MARY Pain Assessment Document 08/01/17 14:26 MJO (Rec: 08/01/17 16:29 MJO [facility] [place]-[id number]) Pain Reassessment Is this a pain reassessment? Yes Sleep Is patient sleeping during reassessment? Yes Pneumococcal Polyvalent Vaccine (Pneumovax 23 Vaccine) 0.5 ml IM .ONCE ONE Stop: 07/29/17 19:20 - Scribe Statement The provider has reviewed the documentation as recorded by the Scribe Alesha Andrews Provider Scribe Attestation: All medical record entries made by the Scribe were at my direction and personally dictated by me. I have reviewed the chart and agree that the record accurately reflects my personal performance of the history, physical exam, medical decision making, and the department course for this patient. I have also personally directed, reviewed, and agree with the discharge instructions and disposition. Disposition/Present on Arrival - Present on Arrival Any Indicators Present on Arrival: No History of DVT/PE: No History of Uncontrolled Diabetes: No Urinary Catheter: No History of Decub. Ulcer: No History Surgical Site Infection Following: None - Disposition Have Diagnosis and Disposition been Completed?: Yes Diagnosis: Cellulitis of scrotum Disposition: HOSPITALIZED Disposition Time: 13:26 Condition: GOOD
[2017-07-29] MEDS ORDERED: Morphine 4 mg/ml ISec IVP PRN (14:17)
[2017-07-29 14:23] LABS: ALB/GLOB RATIO 1.5 (1.1-1.8); ALBUMIN 4.5 g/dL (3.0-4.8); ALT/SGPT 27 U/L (7-56); AST/SGOT 19 U/L (17-59); BLOOD UREA NITROGEN 9 mg/dL (7-21); CALCIUM 10.1 mg/dL (8.4-10.5); GFR AFRICAN-AMERICAN > 60; GFR NON-AFRICAN AMERICAN > 60
[2017-07-29 14:32] LABS: BASO # 0.09 K/mm3 (0.0-2.0); BASO % 0.9 % (0.0-3.0); EOS # 0.1 (0.0-0.7); EOS % 0.9 % (1.5-5.0); GRAN # 6.7 (1.4-6.5); GRAN % 67.9 % (50.0-68.0); HEMOGLOBIN 15.1 g/dL (14.0-18.0); LYMPH # 2.2 (1.2-3.4); LYMPH % 22.5 % (22.0-35.0); MEAN CELL VOLUME 87.9 fl (80.0-105.0); MEAN CORPUSCULAR HEMOGLOBIN 29.5 pg (25.0-35.0); MEAN CORPUSCULAR HGB CONC 33.6 g/dl (31.0-37.0); MEAN PLATELET VOLUME 11.6 fl (7.0-11.0); MONO # 0.8 (0.1-0.6); MONO % 7.8 % (1.0-6.0); RBC 5.12 10^6/uL (3.5-6.1); RED CELL DISTRIBUTION WIDTH 13.2 % (11.5-14.5); WHITE BLOOD COUNT 9.9 10^3/ul (4.5-11.0)
[2017-07-29 14:33] LABS: PH,URINE 6.5 (4.7-8.0); URINE BILIRUBIN NEGATIVE (NEGATIVE); URINE BLOOD NEGATIVE (NEGATIVE); URINE GLUCOSE (UA) NEGATIVE (NEGATIVE); URINE LEUKOCYTE ESTERASE NEGATIVE Leu/uL (NEGATIVE); URINE NITRATE NEGATIVE (NEGATIVE); URINE PROTEIN TRACE mg/dL (<30 mg/dL); URINE UROBILINOGEN 0.2 E.U./dL (<1 E.U./dL)
[2017-07-29 14:47] LABS: URINE COLOR YELLOW (YELLOW)
--- NOTE | 2017-07-29 14:51 | CP.PCM.HP ---
History of Present Illness - History of Present Illness History of Present Illness: General Surgery consult note- Dr. Taylor 21M w/ PMHx of right I&D of scrotal abscess in February 2017, presents to [facility] ED w/ left scrotal swelling and drainage over the last few days. Patient has a history to left abscess and had it drained during his last visit. Pain and tenderness have got worse. Patient denies current fevers, chills, chest pain, shortness of breath, nausea, vomiting, diarrhea, pain or burning with urination , change in urinary frequency / urgency. of note: previous visit pt left due to family emergence. Patient completed entire course of abx at that time. PMH: right scrotal abscess PSH: I&D and debridement of R scrotal abscess (02/2017) ALL: NKDA SocialHx: occasional ETOH, smokes 1/2 PPD Present on Admission - Present on Admission Any Indicators Present on Admission: No Review of Systems - Review of Systems All systems: reviewed and no additional remarkable complaints except - Constitutional Constitutional: As Per HPI Past Patient History - Infectious Disease Hx of Infectious Diseases: None - Past Social History Smoking Status: Light Smoker < 10 Cigarettes Daily - CARDIAC Hx Cardiac Disorders: No - PULMONARY Hx Respiratory Disorders: No - NEUROLOGICAL Hx Neurological Disorder: No - HEENT Hx HEENT Problems: No - RENAL Hx Chronic Kidney Disease: No - ENDOCRINE/METABOLIC Hx Endocrine Disorders: No - HEMATOLOGICAL/ONCOLOGICAL Hx Blood Disorders: No - INTEGUMENTARY Hx Dermatological Problems: Yes Other/Comment: SKIN ABSCESS - MUSCULOSKELETAL/RHEUMATOLOGICAL Hx Musculoskeletal Disorders: No Hx Falls: No - GASTROINTESTINAL Hx Gastrointestinal Disorders: No - GENITOURINARY/GYNECOLOGICAL Hx Genitourinary Disorders: Yes Other/Comment: SCROTAL EDEMA, RT SIDED REDNESS TO TESTICLES - PSYCHIATRIC Hx Psychophysiologic Disorder: No Hx Substance Use: Yes (weed) - SURGICAL HISTORY Hx Surgeries: No - ANESTHESIA Hx Anesthesia: No Meds Allergies/Adverse Reactions: Allergies Allergy/AdvReac Type Severity Reaction Status Date / Time No Known Allergies Allergy Verified 07/29/17 12:35 Physical Exam - Constitutional Appears: Non-toxic, No Acute Distress - Head Exam Head Exam: ATRAUMATIC - Eye Exam Eye Exam: EOMI. absent: Scleral icterus - ENT Exam ENT Exam: Mucous Membranes Moist - Respiratory Exam Respiratory Exam: NORMAL BREATHING PATTERN. absent: Accessory Muscle Use, Respiratory Distress - Cardiovascular Exam Cardiovascular Exam: +S1, +S2. absent: Bradycardia, Tachycardia - GI/Abdominal Exam GI & Abdominal Exam: Soft. absent: Distended, Firm, Guarding, Tenderness - Rectal Exam Rectal Exam: NORMAL INSPECTION - Exam Additional comments: Left scrotum abscess actively draining measures 5cm x 7cm w/ induration - Extremities Exam Extremities exam: Positive for: normal inspection. Negative for: calf tenderness - Back Exam Back exam: absent: CVA tenderness (L), CVA tenderness (R) - Neurological Exam Neurological exam: Alert, Oriented x3 - Psychiatric Exam Psychiatric exam: Normal Affect - Skin Skin Exam: Dry, Warm Results - Vital Signs Recent Vital Signs: Last Vital Signs Temp 98.1 F 07/29/17 12:45 Pulse 64 07/29/17 14:28 Resp 99 H 07/29/17 14:28 BP 126/72 07/29/17 14:28 Pulse Ox 100 07/29/17 14:28 - Labs Result Diagrams: 07/29/17 13:40 07/29/17 13:40 Labs: Laboratory Results - last 24 hr 07/29/17 07/29/17 07/29/17 13:31 13:40 13:40 WBC 9.9 D RBC 5.12 Hgb 15.1 Hct 45.0 MCV 87.9 D MCH 29.5 MCHC 33.6 RDW 13.2 Plt Count 257 MPV 11.6 H Gran % 67.9 Lymph % (Auto) 22.5 Lynn % (Auto) 7.8 H Eos % (Auto) 0.9 L Baso % (Auto) 0.9 Gran # 6.70 H Lymph # 2.2 Lynn # 0.8 H Eos # 0.1 Baso # 0.09 Sodium 140 Potassium 4.1 Chloride 102 Carbon Dioxide 26 Anion Gap 16 BUN 9 Creatinine 0.8 Est GFR ( Amer) > 60 Est GFR (Non-Af Amer) > 60 Random Glucose 85 Calcium 10.1 Total Bilirubin 0.7 AST 19 ALT 27 Alkaline Phosphatase 100 Total Protein 7.5 Albumin 4.5 Globulin 3.1 Albumin/Globulin Ratio 1.5 Urine Color Yellow Urine Appearance Clear Urine pH 6.5 Ur Specific [place] 1.020 Urine Protein Trace H Urine Glucose (UA) Negative Urine Ketones Negative Urine Blood Negative Urine Nitrate Negative Urine Bilirubin Negative Urine Urobilinogen 0.2 Ur Leukocyte Esterase Negative Assessment & Plan - Assessment and Plan (Free Text) Assessment: 21M w/ repeat left groin/scrotal abscess actively draining Plan: - warm compresses q2 - wound culture - Abx CTX & Vanc - NPO after MN - pain control PRN - IVF - f/u CT and US - Plan for OR tomorrow for I&D - further recs per Dr. Brandon Cedeño PGY1
[2017-07-29 14:59] LABS: URINE RBC NEGATIVE /hpf (0-2); URINE WBC 15 - 20 /hpf (0-6)
[2017-07-29 15:00] LABS: URINE APPEARANCE SL CLOUDY (CLEAR); URINE BACTERIA MOD (NEG)
[2017-07-29] MEDS ORDERED: Iohexol 350 MG/100 ML VIAL ONE (15:28)
--- NOTE | 2017-07-29 16:11 | US ---
HISTORY: Abscess TECHNIQUE: Realtime sonography through the scrotum with color and doppler flow. COMPARISON: None Available. FINDINGS: RIGHT TESTICLE: Right testicle measures approximate 5.7 x 2.9 x 3.8 cm. Normal echotexture and flow. RIGHT EPIDIDYMIS: Epididymal head measures 0.8 x 1.0 x 1.2 cm. Small cyst measuring 3 mm x 4 mm x 2 mm possibly representing a tiny spermatocele however the epididymis is otherwise unremarkable appearance with normal flow. . Small right-sided hydrocele LEFT TESTICLE: Left testicle measures approximately 5.6 x 2.8 x 4.3 cm. Normal echotexture and flow. LEFT EPIDIDYMIS: Epididymal head measures approximately 0.6 x 1.2 x 1.5 cm cm. Grossly unremarkable appearance with normal flow. HYDROCELE: Small right-sided hydrocele VARICOCELE: None. OTHER FINDINGS: There is an elliptical shaped heterogeneous soft tissue density apparently arising from left posterolateral margin of the scrotal sac that measures approximately 3.4 x 2.9 x 1.0 cm . This focus exhibits internal Doppler flow. Findings could represent a phlegmon as there are no ultrasound findings suggesting central fluid. IMPRESSION: Possible of phlegmon arising from the left posterolateral margin of the scrotal sac as described above. Due to the presence of internal Doppler flow findings are not felt to represent an abscess at this time. Clinic correlation recommended to exclude other skin surface pathology. Small right-sided hydrocele. Tiny right-sided epididymal cyst. Findings discussed with Dr. Cox at approximately 4:10 p.m. with written down and read back verification.
--- NOTE | 2017-07-29 17:05 | CT ---
PROCEDURE: CT scan abdomen and pelvis dated 07/29/2017 HISTORY: Scrotal abscess. COMPARISON: Comparison made with CT scan abdomen pelvis 03/20/2017. Correlation also made with concurrent scrotal ultrasound. TECHNIQUE: Contiguous axial images of the abdomen pelvis performed following intravenous injection of approximately 100 cc Omnipaque 350 contrast. Coronal and Sagittal reformats generated. This CT exam was performed using one or more of the following dose reduction techniques: Automated exposure control, adjustment of the mA and/or kV according to patient size, and/or use of iterative reconstruction technique. Radiation dose: Total exam DLP = 511.66 mGy-cm. FINDINGS: LOWER THORAX: Lung bases clear. No infiltrate effusion or basilar pneumothorax. Heart size is within range of normal. No significant pericardial effusion LIVER: The liver is upper limits of normal measuring nearly 18 cm in CC dimension. Mild diffuse fatty hepatic infiltration. No obvious hepatic mass or collection identified. Portal and splenic veins are patent. GALLBLADDER AND BILE DUCTS: Gallbladder is physiologically distended. No evidence of intraluminal gallbladder calculi. No obvious pericholecystic fluid collections. PANCREAS: Pancreas is unremarkable without mass collection or calcification. No significant pancreatic ductal dilatation. SPLEEN: Spleen is upper limits of normal -borderline enlarged measuring nearly 13 cm in AP dimension no splenic masses or collections. ADRENALS: There are no adrenal lesions. KIDNEYS AND URETERS: Kidneys demonstrate symmetric nephrograms. No evidence of nephrolithiasis or hydronephrosis. No obvious renal mass or collection. BLADDER: Urinary bladder is physiologically distended. No evidence of intraluminal urinary bladder calculi. REPRODUCTIVE: Prostate gland appears unremarkable APPENDIX: Appendix is not seen with complete certainty however no obvious inflammatory changes in the right lower quadrant of the abdomen. . BOWEL: Evaluation of the bowel is limited due to the lack of oral contrast material. The stomach is incompletely distended which presumably accounts for thick-walled appearance. Several loops of nondistended air-filled small bowel present. . In addition, there are multiple loops of mild thick-walled appearing small bowel. Findings suggest enteritis with secondary ileus. Clinical correlation recommended. PERITONEUM: No gross free intraperitoneal air. There are no free or loculated fluid collections. . Small fat containing umbilical hernia. LYMPH NODES: There are at mildly enlarged bilateral inguinal lymph nodes. VASCULATURE: No evidence of abdominal aortic aneurysm. BONES: No fracture or destructive lesion. OTHER FINDINGS: There is a small elliptical shaped approximately 16.4 x 11.7 low-attenuation focus along the skin surface at the right base of the, above but adjacent to the superior margin scrotal sac that is of uncertain etiology though could represent a small fluid or abscess collection which has not changed not its wound well. There is also slight irregularity of the left aspect of scrotum nonspecific. Correlation with ultrasound recommended. Mild fatty hepatic infiltration. IMPRESSION: There is a small fluid collection at the adjacent right base of penis which has not changed since prior study. Slight irregularity of the left aspect of the scrotum. . Findings suggest a enteritis with mild ileus. Clinical correlation recommended.
[2017-07-29] MEDS: Morphine 2 mg/ml ISec IVP PRN (19:07)
[2017-07-29 19:19] VITALS: BMI 34.3
[2017-07-29] MEDS ORDERED: Pneumococcal 23-Valent Vaccine IM ONE (19:19)
[2017-07-29] MEDS ORDERED: Influenza Vaccine 60 mcg/0.5 mL SYR (4YR UP) IM ONE (19:19)
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
[2017-07-29] MEDS ORDERED: Morphine 2 mg/ml ISec IVP STA (21:28)
[2017-07-29] MEDS ORDERED: Vancomycin 500 mg Inj IVPB SCH (22:00)
[2017-07-29] MEDS ORDERED: metroNIDAZOLE IV 250mg/50 ml 250 MG/50 ML BAG IVPB SCH (22:00)
[2017-07-30] MEDS: Morphine 2 mg/ml ISec IVP PRN ×5 (00:04→20:46)
[2017-07-30] MEDS: cefTRIAXone 2 GM IN NS 2 GM/100 ML BAG IVPB SCH ×2 (05:14→09:49)
[2017-07-30] MEDS ORDERED: cefTRIAXone 2 GM IN NS 2 GM/100 ML BAG IVPB SCH (06:00)
[2017-07-30 06:54] LABS: BASO # 0.08 K/mm3 (0.0-2.0); EOS # 0.2 (0.0-0.7); EOS % 2.1 % (1.5-5.0); GRAN # 3.85 (1.4-6.5); GRAN % 48.3 % (50.0-68.0); HEMOGLOBIN 13.9 g/dL (14.0-18.0); LYMPH # 3.1 (1.2-3.4); LYMPH % 39.1 % (22.0-35.0); MEAN CELL VOLUME 87.7 fl (80.0-105.0); MEAN CORPUSCULAR HEMOGLOBIN 28.5 pg (25.0-35.0); MEAN CORPUSCULAR HGB CONC 32.6 g/dl (31.0-37.0); MEAN PLATELET VOLUME 11.7 fl (7.0-11.0); MONO # 0.8 (0.1-0.6); MONO % 9.5 % (1.0-6.0); RBC 4.87 10^6/uL (3.5-6.1); RED CELL DISTRIBUTION WIDTH 13.3 % (11.5-14.5)
[2017-07-30 06:58] LABS: INR 1.11 (0.93-1.08); PARTIAL THROMBOPLASTIN TIME 34.9 Seconds (25.1-36.5); PROTHROMBIN TIME 12.2 SECONDS (9.4-12.5)
[2017-07-30 07:20] LABS: BLOOD UREA NITROGEN 7 mg/dL (7-21); CALCIUM 9.3 mg/dL (8.4-10.5); GFR AFRICAN-AMERICAN > 60; GFR NON-AFRICAN AMERICAN > 60
[2017-07-30] MEDS: Sodium Chloride 0.9% 100 ML IV SCH (07:50)
[2017-07-30] MEDS: Sodium Chloride 0.9% 1,000 ML IV SCH (09:05)
[2017-07-30] MEDS ORDERED: Bupivacaine 0.5% Inj(30mL) ONE (14:48)
[2017-07-30] MEDS ORDERED: Lidocaine 1% Inj (20ml) ONE (14:48)
[2017-07-30] MEDS ORDERED: Propofol 10 mg/ml Inj (20 ML) ONE (16:10)
[2017-07-30] MEDS ORDERED: Midazolam 2 MG/2 ML VIAL ONE (16:10)
--- NOTE | 2017-07-30 17:07 | PCM.SURG1 ---
Surgeon's Initial Post Op Note - Surgeon's Notes Surgeon: Brandon Buffing Turner And Counter: David PGY1 Type of Anesthesia: General LMA Pre-Operative Diagnosis: Left scrotal abscess Operative Findings: left scrotal abscess, left medial gluteal abscess. Right medial gluteal abscess. See operative report Post-Operative Diagnosis: Hidradenitis supparativa Operation Performed: Incision and drainage of multiple scrotal and left gluteal abscess. Specimen/Specimens Removed: Wound culture; Debrided tissue Estimated Blood Loss: EBL {In ML}: 20 Blood Products Given: N/A Drains Used: Philipp ([place] x2) Post-Op Condition: Good Date of Surgery/Procedure: 07/30/17 Time of Surgery/Procedure: 17:09
[2017-07-30] MEDS ORDERED: HYDROmorphone 1 mg/ml ISec IVP STA (17:10)
[2017-07-30] MEDS: HYDROmorphone 0.5 mg/0.5 ml ISec IVP PRN ×2 (17:10→17:25)
[2017-07-30] MEDS ORDERED: HYDROmorphone 0.5 mg/0.5 ml ISec ONE (17:10)
[2017-07-30] MEDS ORDERED: Lactated Ringer's 1,000 ML IV SCH (17:15)
[2017-07-30] MEDS ORDERED: HYDROmorphone 0.5 mg/0.5 ml ISec IVP STA (17:25)
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
[2017-07-30] MEDS ORDERED: Morphine 2 mg/ml ISec IM STA (23:35)
[2017-07-31] MEDS: Morphine 2 mg/ml ISec IVP PRN ×6 (02:04→20:45)
[2017-07-31 07:07] LABS: BASO # 0.09 K/mm3 (0.0-2.0); BASO % 1.1 % (0.0-3.0); EOS # 0.2 (0.0-0.7); EOS % 2.1 % (1.5-5.0); GRAN # 4.45 (1.4-6.5); GRAN % 51.9 % (50.0-68.0); HEMOGLOBIN 13.4 g/dL (14.0-18.0); LYMPH # 3.3 (1.2-3.4); LYMPH % 38.6 % (22.0-35.0); MEAN CELL VOLUME 88.5 fl (80.0-105.0); MEAN CORPUSCULAR HGB CONC 32.8 g/dl (31.0-37.0); MEAN PLATELET VOLUME 11.8 fl (7.0-11.0); MONO # 0.5 (0.1-0.6); MONO % 6.3 % (1.0-6.0); RBC 4.62 10^6/uL (3.5-6.1); RED CELL DISTRIBUTION WIDTH 13.2 % (11.5-14.5); WHITE BLOOD COUNT 8.6 10^3/ul (4.5-11.0)
[2017-07-31 07:33] LABS: BLOOD UREA NITROGEN 10 mg/dL (7-21); CALCIUM 8.9 mg/dL (8.4-10.5); GFR AFRICAN-AMERICAN > 60; GFR NON-AFRICAN AMERICAN > 60
[2017-07-31 07:47] VITALS: RESP 20
[2017-07-31] MEDS: cefTRIAXone 2 GM IN NS 2 GM/100 ML BAG IVPB SCH (09:34)
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
--- NOTE | 2017-07-31 15:44 | CP.PCM.PN ---
Subjective - Date & Time of Evaluation Date of Evaluation: 07/31/17 (q) Time of Evaluation: 15:41 - Subjective Subjective: General surgery - Dr. Taylor Patient seen and evaluated at bedside. No acute events reported overnight. Patient reports improvement in his symptoms since admission. Reports pain associated with testicular abscess I&D sites. Denies numbness, weakness, chest pain, shortness of breath, abdominal pain nausea, vomiting, fever, chills. Objective - Vital Signs/Intake and Output Vital Signs (last 24 hours): Temp Pulse Resp BP Pulse Ox 97.8 F 68 20 116/66 98 07/31/17 07:30 07/31/17 07:30 07/31/17 07:30 07/31/17 07:30 07/31/17 07:30 Intake and Output: 07/31/17 07/31/17 06:59 18:59 Intake Total 1260 Output Total 300 Balance 960 - Medications Medications: Current Medications Acetaminophen (Tylenol 650 Mg Supp) 650 mg RC Q4H PRN PRN Reason: Fever >100.4 F Famotidine (Pepcid) 20 mg IVP DAILY [facility] Last Admin: 07/31/17 09:35 Dose: 20 mg Ceftriaxone Sodium (Rocephin 2 Gm Ivpb) 2 gm in 100 mls @ 100 mls/hr IVPB DAILY [facility] PRN Reason: Protocol Last Admin: 07/31/17 09:34 Dose: 100 mls/hr Vancomycin HCl 1.25 gm/ Sodium (Chloride) 250 mls @ 167 mls/hr IVPB Q12 [facility] Last Admin: 07/31/17 10:15 Dose: 167 mls/hr Sodium Chloride (Sodium Chloride 0.9%) 1,000 mls @ 125 mls/hr IV .Q8H [facility] Last Admin: 07/30/17 09:05 Dose: 125 mls/hr Morphine Sulfate (Morphine) 2 mg IVP Q4 PRN PRN Reason: Pain, moderate (4-7) Last Admin: 07/31/17 13:35 Dose: 2 mg - Labs Labs: 07/31/17 06:00 07/31/17 06:00 PT 12.2 SECONDS (9.4-12.5) 07/30/17 06:20 INR 1.11 (0.93-1.08) H 07/30/17 06:20 APTT 34.9 Seconds (25.1-36.5) 07/30/17 06:20 - Constitutional Appears: No Acute Distress - Head Exam Head Exam: ATRAUMATIC - Eye Exam Eye Exam: EOMI, PERRL - ENT Exam ENT Exam: Mucous Membranes Moist - Cardiovascular Exam Cardiovascular Exam: +S1, +S2. absent: Tachycardia - GI/Abdominal Exam GI & Abdominal Exam: Soft, Normal Bowel Sounds. absent: Tenderness - Exam Additional comments: Left scrotal, left medial gluteal, right medial gluteal abscess with david intact - Extremities Exam Extremities Exam: absent: Calf Tenderness - Back Exam Back Exam: NORMAL INSPECTION - Neurological Exam Neurological Exam: Alert, Awake, Normal Gait, Oriented x3 - Psychiatric Exam Psychiatric exam: Normal Affect, Normal Mood - Skin Skin Exam: Dry, Intact. absent: Rash Assessment and Plan - Assessment and Plan (Free Text) Assessment: 21M w/ repeat left groin/scrotal abscess s/p I & D of abscesses Plan: - follow up wound culture - strep pyogenes group A - Antibiotics with ceftriaxone and vancomycin - Analgesic PRN - Continue local wound care - leave david in for one week from surgical date - futher recommendations per surgical attending Darius Ram PGY1
[2017-07-31] MEDS: Sodium Chloride 0.9% 1,000 ML IV SCH (17:42)
[2017-08-01] MEDS: Sodium Chloride 0.9% 1,000 ML IV SCH (04:03)
[2017-08-01] MEDS: Morphine 2 mg/ml ISec IVP PRN ×4 (04:05→16:45)
[2017-08-01 06:08] LABS: BASO # 0.07 K/mm3 (0.0-2.0); EOS # 0.2 (0.0-0.7); EOS % 2.7 % (1.5-5.0); GRAN # 3.37 (1.4-6.5); GRAN % 50.5 % (50.0-68.0); HEMOGLOBIN 13.9 g/dL (14.0-18.0); LYMPH # 2.6 (1.2-3.4); LYMPH % 38.8 % (22.0-35.0); MEAN CELL VOLUME 87.5 fl (80.0-105.0); MEAN CORPUSCULAR HEMOGLOBIN 28.9 pg (25.0-35.0); MEAN PLATELET VOLUME 11.7 fl (7.0-11.0); MONO # 0.5 (0.1-0.6); RBC 4.81 10^6/uL (3.5-6.1); RED CELL DISTRIBUTION WIDTH 13.1 % (11.5-14.5); WHITE BLOOD COUNT 6.7 10^3/ul (4.5-11.0)
[2017-08-01 07:19] LABS: BLOOD UREA NITROGEN 7 mg/dL (7-21); CALCIUM 9.5 mg/dL (8.4-10.5); GFR AFRICAN-AMERICAN > 60; GFR NON-AFRICAN AMERICAN > 60
[2017-08-01 08:50] VITALS: BP 118/74; PULSE 60; TEMP 98; O2SAT 100
[2017-08-01] MEDS: Oxycodone/Acetaminophen 5/325 mg Tab PO PRN ×2 (09:45→13:26)
[2017-08-01] MEDS: cefTRIAXone 2 GM IN NS 2 GM/100 ML BAG IVPB SCH (09:45)
--- NOTE | 2017-08-01 10:10 | CP.PCM.PN ---
Subjective - Date & Time of Evaluation Date of Evaluation: 08/01/17 Time of Evaluation: 07:20 - Subjective Subjective: Surgery Progress note. Dr. Taylor Pt seen and examined at bedside. Still in considerable amount of pain. No F/C. No new complaints. No N/V/D. Objective - Vital Signs/Intake and Output Vital Signs (last 24 hours): Temp Pulse Resp BP Pulse Ox 98.0 F 60 20 118/74 100 08/01/17 07:30 08/01/17 07:30 08/01/17 07:30 08/01/17 07:30 08/01/17 07:30 Intake and Output: 08/01/17 08/01/17 06:59 18:59 Intake Total 1320 Balance 1320 - Medications Medications: Current Medications Acetaminophen (Tylenol 650 Mg Supp) 650 mg RC Q4H PRN PRN Reason: Fever >100.4 F Ceftriaxone Sodium (Rocephin 2 Gm Ivpb) 2 gm in 100 mls @ 100 mls/hr IVPB DAILY [facility] PRN Reason: Protocol Last Admin: 08/01/17 09:45 Dose: 100 mls/hr Vancomycin HCl 1.25 gm/ Sodium (Chloride) 250 mls @ 167 mls/hr IVPB Q12 [facility] Last Admin: 08/01/17 09:49 Dose: 167 mls/hr Morphine Sulfate (Morphine) 2 mg IVP Q4 PRN PRN Reason: Pain, moderate (4-7) Last Admin: 08/01/17 08:08 Dose: 2 mg Oxycodone/Acetaminophen (Percocet 5/325 Mg Tab) 1 tab PO Q4H PRN PRN Reason: Pain, Mild (1-3) Stop: 08/04/17 09:09 Last Admin: 08/01/17 09:45 Dose: 1 tab - Labs Labs: 08/01/17 05:30 08/01/17 05:30 PT 12.2 SECONDS (9.4-12.5) 07/30/17 06:20 INR 1.11 (0.93-1.08) H 07/30/17 06:20 APTT 34.9 Seconds (25.1-36.5) 07/30/17 06:20 - Constitutional Appears: Well, Non-toxic, No Acute Distress - Head Exam Head Exam: ATRAUMATIC, NORMAL INSPECTION, NORMOCEPHALIC - Eye Exam Eye Exam: EOMI - ENT Exam ENT Exam: Mucous Membranes Moist - Respiratory Exam Respiratory Exam: NORMAL BREATHING PATTERN. absent: Accessory Muscle Use, Respiratory Distress - Cardiovascular Exam Cardiovascular Exam: RRR. absent: JVD - GI/Abdominal Exam GI & Abdominal Exam: Soft. absent: Distended, Firm, Guarding, Rigid, Tenderness - Exam Additional comments: David drains x2 in place left scrotum and left inner leg. Right inner leg packing in place. drainage noted. - Neurological Exam Neurological Exam: Alert, Awake, Oriented x3 - Skin Skin Exam: Normal Color, Warm Assessment and Plan - Assessment and Plan (Free Text) Assessment: 21yo M w/ left groin/scrotal abscess s/p I & D of abscesses 07/30 - Wound culture - strep pyogenes group A - Continue abx - pain management. Will adjust coverage today. - Continue david drains until at least 08/06 - Will replace packing from right upper inner leg wound today - Replace dressings as needed: dry gauze, abdominal pads Jonathan Hernandez PGY1 surgery pager: [phone]
[2017-08-01] MEDS ORDERED: Morphine 2 mg/ml ISec IVP STA (10:26)
--- NOTE | 2017-08-01 18:48 | CP.PCM.DIS ---
Provider - Provider Date of Admission: 07/29/17 13:26 Attending physician: James Taylor MD Consults: ID: Eligio Bharath Time Spent in preparation of Discharge (in minutes): 45 Hospital Course - Lab Results Lab Results: Micro Results 07/30/17 18:04 Scrotum Gram Stain - Final 07/30/17 18:04 Scrotum Anaerobic Culture - Final NO ANAEROBES ISOLATED. 07/30/17 18:04 Scrotum Wound Culture - Preliminary No growth. 07/29/17 13:57 Abscess - Abscess Gram Stain - Final 07/29/17 13:57 Abscess - Abscess Wound Culture - Final Streptococcus Pyogenes Grp A Most Recent Lab Values WBC 6.7 10^3/ul (4.5-11.0) D 08/01/17 05:30 RBC 4.81 10^6/uL (3.5-6.1) 08/01/17 05:30 Hgb 13.9 g/dL (14.0-18.0) L 08/01/17 05:30 Hct 42.1 % (42.0-52.0) 08/01/17 05:30 MCV 87.5 fl (80.0-105.0) 08/01/17 05:30 MCH 28.9 pg (25.0-35.0) 08/01/17 05:30 MCHC 33.0 g/dl (31.0-37.0) 08/01/17 05:30 RDW 13.1 % (11.5-14.5) 08/01/17 05:30 Plt Count 241 10^3/uL (120.0-450.0) 08/01/17 05:30 MPV 11.7 fl (7.0-11.0) H 08/01/17 05:30 Gran % 50.5 % (50.0-68.0) 08/01/17 05:30 Lymph % (Auto) 38.8 % (22.0-35.0) H 08/01/17 05:30 [place] % (Auto) 7.0 % (1.0-6.0) H 08/01/17 05:30 Eos % (Auto) 2.7 % (1.5-5.0) 08/01/17 05:30 Baso % (Auto) 1.0 % (0.0-3.0) 08/01/17 05:30 Gran # 3.37 (1.4-6.5) 08/01/17 05:30 Lymph # 2.6 (1.2-3.4) 08/01/17 05:30 [place] # 0.5 (0.1-0.6) 08/01/17 05:30 Eos # 0.2 (0.0-0.7) 08/01/17 05:30 Baso # 0.07 K/mm3 (0.0-2.0) 08/01/17 05:30 PT 12.2 SECONDS (9.4-12.5) 07/30/17 06:20 INR 1.11 (0.93-1.08) H 07/30/17 06:20 APTT 34.9 Seconds (25.1-36.5) 07/30/17 06:20 Sodium 143 mmol/L (132-148) 08/01/17 05:30 Potassium 4.0 mmol/L (3.6-5.0) 08/01/17 05:30 Chloride 105 mmol/L (98-107) 08/01/17 05:30 Carbon Dioxide 28 mmol/L (21-33) 08/01/17 05:30 Anion Gap 15 (10-20) 08/01/17 05:30 BUN 7 mg/dL (7-21) 08/01/17 05:30 Creatinine 0.8 mg/dl (0.8-1.5) 08/01/17 05:30 Est GFR ( Amer) > 60 08/01/17 05:30 Est GFR (Non-Af Amer) > 60 08/01/17 05:30 Random Glucose 89 mg/dL (70-110) 08/01/17 05:30 Calcium 9.5 mg/dL (8.4-10.5) 08/01/17 05:30 Total Bilirubin 0.7 mg/dL (0.2-1.3) 07/29/17 13:40 AST 19 U/L (17-59) 07/29/17 13:40 ALT 27 U/L (7-56) 07/29/17 13:40 Alkaline Phosphatase 100 U/L (38-126) 07/29/17 13:40 Total Protein 7.5 g/dL (5.8-8.3) 07/29/17 13:40 Albumin 4.5 g/dL (3.0-4.8) 07/29/17 13:40 Globulin 3.1 gm/dL 07/29/17 13:40 Albumin/Globulin Ratio 1.5 (1.1-1.8) 07/29/17 13:40 Urine Color Yellow (YELLOW) 07/29/17 13:31 Urine Appearance Sl cloudy (CLEAR) 07/29/17 13:31 Urine pH 6.5 (4.7-8.0) 07/29/17 13:31 Ur Specific [place] 1.020 (1.005-1.035) 07/29/17 13:31 Urine Protein Trace mg/dL (<30 mg/dL) H 07/29/17 13:31 Urine Glucose (UA) Negative mg/dL (NEGATIVE) 07/29/17 13:31 Urine Ketones Negative mg/dL (NEGATIVE) 07/29/17 13:31 Urine Blood Negative (NEGATIVE) 07/29/17 13:31 Urine Nitrate Negative (NEGATIVE) 07/29/17 13:31 Urine Bilirubin Negative (NEGATIVE) 07/29/17 13:31 Urine Urobilinogen 0.2 E.U./dL (<1 E.U./dL) 07/29/17 13:31 Ur Leukocyte Esterase Negative Sd/uL (NEGATIVE) 07/29/17 13:31 Urine RBC Negative /hpf (0-2) 07/29/17 13:31 Urine WBC 15 - 20 /hpf (0-6) 07/29/17 13:31 Ur Epithelial Cells 4 - 5 /hpf (0-5) 07/29/17 13:31 Urine Bacteria Mod (NEG) 07/29/17 13:31 - Hospital Course Hospital Course: 21yo M with Recurrent Scrotal Abscess, failed outpatient complete course of antibiotics after leaving AMA previous visit. This admission, patient obtained I &D of L scrotal abscess, L and R inner leg on 07/30/17, placement of 2 philipp drains. No postoperative complications noted. ID evaluated the patient and recommend discharge on PO Augmentin for 7 days. Patient recommended to take OTC Tylenol/Ibuprofen for pain management and he states that he would like to try this regimen and would follow up with Dr. Taylor in office for drain removal. Discussed plan in detail and patient expressed his understanding. Discharge Exam - Head Exam Head Exam: ATRAUMATIC, NORMAL INSPECTION, NORMOCEPHALIC - Eye Exam Eye Exam: EOMI - ENT Exam ENT Exam: Mucous Membranes Moist - Respiratory Exam Respiratory Exam: NORMAL BREATHING PATTERN. absent: Accessory Muscle Use, Respiratory Distress - GI/Abdominal Exam GI & Abdominal Exam: Soft. absent: Tenderness - Exam Additional comments: Left inferior scrotum with philipp in place. Left medial upper periscrotal leg wound tract with philipp in place. Right periscrotal leg wound with 1/4in packing replaced today - Extremities Exam Extremities exam: normal inspection - Neurological Exam Neurological exam: Alert, Normal Gait, Oriented x3 - Psychiatric Exam Psychiatric exam: Normal Affect, Normal Mood Discharge Plan - Discharge Medications Prescriptions: Amoxicillin/Clavulanate [Augmentin 875 MG-125 MG] 1 tab PO BID #14 tab - Follow Up Plan Condition: GOOD Disposition: HOME/ ROUTINE Instructions: Cellulitis (DC), Pelvic Pain in Men (DC) Additional Instructions: 1. Follow up with Dr. Taylor in one week. Call for appointment. 2. You may shower; no soaking, no pools, no bathing. 3. Keep area clean and dry 4. Philipp drains remain in place for at least 6 more days. No need to replace packing once it falls out. 5. Take antibiotics as prescribed to completion 6. Use OTC Acetaminophen or Ibuprofen as directed for pain control 7. Return to the ER with any additional complaints Referrals: James Taylor MD [Staff Provider] -
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
--- NOTE | 2017-08-08 21:50 | OP ---
PROCEDURE DATE: 07/30/2017 PREOPERATIVE DIAGNOSES: Left scrotal abscess and perirectal abscess. POSTOPERATIVE DIAGNOSES: Left scrotal abscess and perirectal abscess. OPERATION PERFORMED: Drainage and debridement. DESCRIPTION OF PROCEDURE: In the operating room, the patient was identified by name, name of procedure, laterality, my claudia. After the successful time-out, the patient in lithotomy, was prepped and draped. A palpable abscess in the left and right groin was aspirated, drained, cleaned with peroxide and multiple Philipp's were placed. Patient was taken to recovery room after the [place] was sutured to themselves and wounds were cultured aerobically and anaerobically. James Taylor MD MTDFrancheska
== END 2017-08-01 19:12 | disposition home or self-care (01) | DRG 350 ==
LOC: ED 12:09 → ERH 13:26 → 5RNO 14:39
PROVIDERS: ADMIT Surgery; ATTEND Surgery
PROC: 0V950ZZ Drainage of Scrotum, Open Approach (ICD-10-PCS; principal; 2017-07-30 14:00)
DX: N49.2 Inflammatory disorders of scrotum (principal); K61.1 Rectal abscess; N45.4 Abscess of epididymis or testis; N50.89 Other specified disorders of the male genital organs; L73.2 Hidradenitis suppurativa; F17.210 Nicotine dependence, cigarettes, uncomplicated; F12.90 Cannabis use, unspecified, uncomplicated

== ENCOUNTER 2018-01-31 22:14 | Observation (INO) | payer SELFPAY ==
[2018-01-31 22:14] VITALS: BMI 34.3
[2018-01-31] MEDS ORDERED: cefTRIAXone (Rocephin) 250 mg Inj IM STA (22:40)
--- NOTE | 2018-01-31 22:46 | ED PDOC ---
"Arrival/HPI - General Chief Complaint: Male Genitourinary Time Seen by Provider: 01/31/18 22:38 Historian: Patient - History of Present Illness Narrative History of Present Illness (Text): 01/31/18 22:46 22 year old male, pmh including scrotum cellulitis nkda, complaining of purulant penile discharge x 2 days and rt. scrotum swelling x 3 weeks with no fall or trauma. Pt. stated that he had new sexual partner about 1 month ago, been having penile discharge with dysuria for the past 2 days. Pt. stated that he has rt. scrotum swelling for the past 3 weeks, no fever or chills, no night sweat, no rash, no numbness or tingling, no fever or chills, no palpitation, no other medical or psychological complaints. Past Medical History - Provider Review Nursing Documentation Reviewed: Yes - Infectious Disease Hx of Infectious Diseases: None - Cardiac Hx Cardiac Disorders: No - Pulmonary Hx Respiratory Disorders: No - Neurological Hx Neurological Disorder: No - HEENT Hx HEENT Disorder: No - Renal Hx Renal Disorder: No - Endocrine/Metabolic Hx Endocrine Disorders: No - Hematological/Oncological Hx Blood Disorders: No - Integumentary Hx Dermatological Disorder: Yes Other/Comment: SKIN ABSCESS - Musculoskeletal/Rheumatological Hx Musculoskeletal Disorders: No Hx Falls: No - Gastrointestinal Hx Gastrointestinal Disorders: No - Genitourinary/Gynecological Hx Genitourinary Disorders: Yes Other/Comment: SCROTAL EDEMA, RT SIDED REDNESS TO TESTICLES - Psychiatric Hx Psychophysiologic Disorder: No Hx Substance Use: Yes (weed) - Anesthesia Hx Anesthesia: No Family/Social History - Physician Review Nursing Documentation Reviewed: Yes Family/Social History: Unknown Family HX Smoking Status: Light Smoker < 10 Cigarettes Daily Hx Alcohol Use: Yes (SOCIAL) Hx Substance Use: Yes (weed) Allergies/Home Meds Allergies/Adverse Reactions: Allergies No Known Allergies Allergy (Verified 01/31/18 22:26) Home Medications: Home Meds Medication Instructions Recorded Confirmed No Known Home Med 01/31/18 01/31/18 Review of Systems - Review of Systems Constitutional: absent: Fatigue, Fevers Eyes: absent: Vision Changes ENT: absent: Hearing Changes Respiratory: absent: SOB, Cough Cardiovascular: absent: Chest Pain Gastrointestinal: absent: Abdominal Pain, Nausea, Vomiting Genitourinary Male: Dysuria, Other (+penile discharge and rt. scrotum swelling) . absent: Frequency, Hematuria, Urinary Output Changes Skin: absent: Rash, Pruritis, Skin Lesions, Laceration, Ulcer Neurological: absent: Headache, Dizziness Psychiatric: absent: Anxiety, Depression Physical Exam Vital Signs Reviewed: Yes Vital Signs Temp Pulse Resp BP Pulse Ox 01/31/18 22:26 98.6 F 91 H 18 147/82 100 Temperature: Afebrile Blood Pressure: Normal Pulse: Regular Respiratory Rate: Normal Appearance: Positive for: Well-Appearing, Non-Toxic, Comfortable Pain Distress: Mild Mental Status: Positive for: Alert and Oriented X 3 - Systems Exam Head: Present: Atraumatic, Normocephalic Pupils: Present: PERRL Extroacular Muscles: Present: EOMI Conjunctiva: Present: Normal Mouth: Present: Moist Mucous Membranes Neck: Present: Normal Range of Motion Respiratory/Chest: Present: Clear to Auscultation, Good Air Exchange. No: Respiratory Distress, Accessory Muscle Use Cardiovascular: Present: Regular Rate and Rhythm, Normal S1, S2. No: Murmurs Abdomen: No: Tenderness, Distention, Peritoneal Signs Genitourinary Male: Present: Normal External Genitalia, Penile Discharge, Masses (rt. lateral pubic region noted to have [id number] fluctuant firm abscess draining purulant noted mild radiating to the lateral border of the scrotum), Other. No: Circumcised Penis, Lesions, Testicle Tenderness, Penile Swelling, Erythema, Hernias, Testicle Swelling Back: Present: Normal Inspection Upper Extremity: Present: Normal Inspection. No: Cyanosis, Edema Lower Extremity: Present: Normal Inspection. No: Edema Neurological: Present: GCS=15, Speech Normal, Motor Func Grossly Intact, Gait Normal, Memory Normal Skin: Present: Warm, Dry, Rashes (rt. scrotal region visible and palpable firm noted to have approx. [id number] to the rt. lateral pubic region with purulant drainage), Normal Color Psychiatric: Present: Alert, Oriented x 3, Normal Insight, Normal Concentration Medical Decision Making ED Course and Treatment: 01/31/18 22:49 Differential: Gonorrhea vs. chlamydia vs. UTI vs. Abscess vs. orchitis -labs/ua -Scrotum sonogram -Rocephine 250mg IM and azithromycin 1gm po, 1gm Vancomycin -Observe and reassess 02/01/18 00:38 -Old chart review, previous abscess drained by the general surgeon. -Scrotum sonogram: Hypoechoic heterogeneous vascular structure lateral to the right testicle. The vascularity suggests possible phlegmon although underlying developing neoplasm would be possible and followup is recommended to ensure complete resolution. No drainable abscess. No testicular torsion. -Labs show no acute findings -Urinalysis show +UTI -IV vancomycin running, will add rocephine 1gm IV as well giving the Urinalysis findings but likely from STI. -I spoke to the surgical elastic knitter hand frame Dr. Garcia, discussed about the case and previously performed by Dr. Taylor, will come down to evaluate the patient. Request to have chlamydia and gonorrhea testing, ordered. 02/01/18 00:57 -DR. Garcia, surgical elastic knitter hand frame, came to evaluate the patient, stated that she will notify Dr. Taylor about this case and would likely needs to be drained in the OR but admit to DR. Taylor service. As per Dr. garcia, she will notify Dr. Taylor about this case and no need me to reach out to Dr. Taylor at this [facility]. I discussed with Dr. Aleman and he will put in the admission order. - Lab Interpretations Lab Results: 01/31/18 23:05 01/31/18 23:05 Lab Results 01/31/18 23:05: WBC 9.4 D, RBC 4.77, Hgb 14.0, Hct 40.5 L, MCV 84.9, MCH 29.4, MCHC 34.6, RDW 13.0, Plt Count 254, MPV 11.2 H, Gran % 53.5, Lymph % (Auto) 38.6 H, [place] % (Auto) 5.4, Eos % (Auto) 1.9, Baso % (Auto) 0.6, Gran # 5.02, Lymph # (Auto) 3.6 H, [place] # (Auto) 0.5, Eos # (Auto) 0.2, Baso # (Auto) 0.06 01/31/18 23:05: Sodium 143, Potassium 4.1, Chloride 104, Carbon Dioxide 27, Anion Gap 15, BUN 13, Creatinine 1.2, Est GFR ( Amer) > 60, Est GFR (Non- Af Amer) > 60, Random Glucose 92, Calcium 9.4, Total Bilirubin 0.4, AST 28, ALT 42, Alkaline Phosphatase 94, Total Protein 7.2, Albumin 4.2, Globulin 3.0, Albumin/Globulin Ratio 1.4 01/31/18 22:52: Urine Color Light yellow, Urine Appearance Clear, Urine pH 6.0, Ur Specific [place] >= 1.030, Urine Protein Trace H, Urine Glucose (UA) Negative , Urine Ketones Negative, Urine Blood Trace-lysed H, Urine Nitrate Negative, Urine Bilirubin Negative, Urine Urobilinogen 0.2, Ur Leukocyte Esterase Moderate H, Urine RBC 2 - 5, Urine WBC Tntc, Ur Epithelial Cells 0 - 2, Urine Bacteria Small - RAD Interpretation Radiology Orders: 01/31/18 22:45 TESTES DUPLEX COMPLETE [US] Stat FINDINGS: The testicles are symmetric and homogeneous bilaterally. Color flow and arterial waveforms are demonstrated bilaterally (no torsion). The flow is symmetric on side by side images. The epidiymis are normal bilaterally. There are small hydroceles bilaterally. Lateral to the right testicle, is a 2.7 x 3.6 x 0.6 cm hypoechoic, slightly heterogeneous structure with vascularity. A somewhat similar appearing structure was noted on prior July 2017 in a different location (posterior lateral to left testes). A more remote study from February 2017 demonstrated a rounded hypoechoic heterogeneous structure lateral to the right testes however it was avascular. MARBELLA PETERSON | Preliminary Radiology Report COUNTER WAITRESS/WAITER (QA) DISCREPANCY? If there is a discrepancy between the preliminary and final interpretation, please notify [facility] via [email or web address]. If you do not have access to our QA portal, call our QA team at [phone] CONFIDENTIALITY STATEMENT This report is intended only for the use of the referring physician, and only in accordance with law, If you received this in error, call [phone] Page 2 of 2 IMPRESSION: Hypoechoic heterogeneous vascular structure lateral to the right testicle. The vascularity suggests possible phlegmon although underlying developing neoplasm would be possible and followup is recommended to ensure complete resolution. No drainable abscess. No testicular torsion. Thank you for allowing us to participate in the care of your patient. Dictated and Authenticated by: Kiana Meneses MD 02/01/2018 12:23 AM Eastern Time ([place] & [place]) Senior Controls Technician: Radiologist - Medication Orders Current Medication Orders: Ceftriaxone Sodium (Rocephin 1 Gram Ivpb) 1 gm in 100 mls @ 200 mls/hr IVPB STAT STA PRN Reason: Protocol Stop: 02/01/18 01:10 Discontinued Medications Azithromycin (Zithromax) 1,000 mg PO STAT STA PRN Reason: Protocol Stop: 01/31/18 22:41 Last Admin: 01/31/18 22:50 Dose: 1,000 mg Ceftriaxone Sodium (Rocephin) 250 mg IM STAT STA PRN Reason: Protocol Stop: 01/31/18 22:41 Last Admin: 01/31/18 22:50 Dose: 250 mg IM Administration Charges Document 01/31/18 22:50 OCS (Rec: 01/31/18 22:50 OCS [email or web address] Injection Site MAR Injection Site Right Gluteus Medius Charges for Administration # of IM Administrations 1 Vancomycin HCl (Vancomycin 1gm) 1 gm in 250 mls @ 167 mls/hr IVPB STAT STA PRN Reason: Protocol Stop: 02/01/18 00:24 Last Admin: 01/31/18 23:10 Dose: 167 mls/hr eMAR Start Stop Document 01/31/18 23:10 OCS (Rec: 01/31/18 23:11 OCS [id number] Intravenous Solution Start Date 01/31/18 Start Time 23:10 End Date 02/01/18 End time 00:40 Total Infusion Time 90 Ketorolac Tromethamine (Toradol) 30 mg IVP STAT STA Stop: 02/01/18 00:02 - PA / INSTITUTIONAL COMMODITY ANALYST / Resident Statement / has reviewed & agrees with the documentation as recorded. Disposition/Present on Arrival - Present on Arrival Any Indicators Present on Arrival: No History of DVT/PE: No History of Uncontrolled Diabetes: No Urinary Catheter: No History of Decub. Ulcer: No History Surgical Site Infection Following: None - Disposition Have Diagnosis and Disposition been Completed?: Yes Diagnosis: Penile discharge, Scrotal abscess Disposition: HOSPITALIZED Disposition Time: 22:58 Patient Plan: Admission, Observation Patient Problems: Current Active Problems Problem Status Onset Penile discharge Acute Scrotal abscess Acute Condition: STABLE Referrals: PCP,NO [Primary Care Provider] - Follow up with primary Forms: [employer] (Kiswahili)"
[2018-01-31] MEDS ORDERED: Vancomycin 1gm in NS 250ml 1 GM/250 ML BAG IVPB STA (22:55)
[2018-01-31 23:17] LABS: BASO # 0.06 K/mm3 (0.0-2.0); BASO % 0.6 % (0.0-3.0); EOS # 0.2 (0.0-0.7); EOS % 1.9 % (1.5-5.0); GRAN # 5.02 (1.4-6.5); GRAN % 53.5 % (50.0-68.0); LYMPH # 3.6 (1.2-3.4); LYMPH % 38.6 % (22.0-35.0); MEAN CELL VOLUME 84.9 fl (80.0-105.0); MEAN CORPUSCULAR HEMOGLOBIN 29.4 pg (25.0-35.0); MEAN CORPUSCULAR HGB CONC 34.6 g/dl (31.0-37.0); MEAN PLATELET VOLUME 11.2 fl (7.0-11.0); MONO # 0.5 (0.1-0.6); MONO % 5.4 % (1.0-6.0); RBC 4.77 10^6/uL (3.5-6.1); WHITE BLOOD COUNT 9.4 10^3/ul (4.5-11.0)
[2018-01-31 23:20] LABS: URINE BILIRUBIN NEGATIVE (NEGATIVE); URINE BLOOD TRACE-LYSED (NEGATIVE); URINE GLUCOSE (UA) NEGATIVE (NEGATIVE); URINE LEUKOCYTE ESTERASE MODERATE Leu/uL (NEGATIVE); URINE PROTEIN TRACE mg/dL (<30 mg/dL); URINE UROBILINOGEN 0.2 E.U./dL (<1 E.U./dL)
[2018-01-31 23:22] LABS: URINE APPEARANCE CLEAR (CLEAR); URINE COLOR LIGHT YELLOW (YELLOW)
[2018-01-31 23:30] LABS: ALB/GLOB RATIO 1.4 (1.1-1.8); ALBUMIN 4.2 g/dL (3.0-4.8); ALT/SGPT 42 U/L (7-56); AST/SGOT 28 U/L (17-59); BLOOD UREA NITROGEN 13 mg/dL (7-21); CALCIUM 9.4 mg/dL (8.4-10.5); GFR AFRICAN-AMERICAN > 60; GFR NON-AFRICAN AMERICAN > 60
[2018-02-01 00:25] LABS: URINE WBC TNTC /hpf (0-6)
[2018-02-01 00:26] LABS: URINE BACTERIA SMALL (NEG); URINE EPITHELIAL CELLS 0 - 2 /hpf (0-5)
[2018-02-01] MEDS ORDERED: cefTRIAXone 1 gm 1 GM/100 ML BAG IVPB STA (00:41)
[2018-02-01 00:58] VITALS: PULSE 60
[2018-02-01] MEDS ORDERED: Morphine 2 mg/2 mL syringe IVP PRN (01:04)
[2018-02-01] MEDS ORDERED: Oxycodone/Acetaminophen 5/325 mg Tab PO PRN (01:04)
[2018-02-01 02:43] VITALS: RESP 20
--- NOTE | 2018-02-01 06:15 | CP.PCM.HP ---
History of Present Illness - History of Present Illness History of Present Illness: GENERAL SURGERY HISTORY AND PHYSICAL FOR DR. LEWIS 22yo M with PMHx of bilateral scrotal abscesses s/p I&D in July who presents with right scrotal abscess. The patient states that since his I&D in July, he has had intermittent abscesses that drain and resolve on their own. The current abscess has been present for about a week and a half and has been draining on his own. The pain worsened which prompted him to come to the ED. Pt also reports penile drainage that began yesterday. No dysuria or urinary issues. Pt denies CP, SOB, fever, chills, nausea, vomiting, diarrhea, constipation. PMHx: Hidradenitis supparativa with numerous groin/scrotal abscesses Surgeries: right scrotal abscess I&D. Left groin abscess drainage on 03/20/17, I& D of multiple scrotal and left gluteal abscess on 07/30/17, lymph node biopsy at [facility] [place] - pt is unsure of results Allergies: none Medications: none Social history: no etoh, smoke 1/2 PPD, denies illicit drug use Present on Admission - Present on Admission Any Indicators Present on Admission: No Review of Systems - Review of Systems All systems: reviewed and no additional remarkable complaints except (as per HPI ) Past Patient History - Infectious Disease Hx of Infectious Diseases: None - Past Social History Smoking Status: Light Smoker < 10 Cigarettes Daily Alcohol: None Drugs: Denies - CARDIAC Hx Cardiac Disorders: No - PULMONARY Hx Respiratory Disorders: No - NEUROLOGICAL Hx Neurological Disorder: No - HEENT Hx HEENT Problems: No - RENAL Hx Chronic Kidney Disease: No - ENDOCRINE/METABOLIC Hx Endocrine Disorders: No - HEMATOLOGICAL/ONCOLOGICAL Hx Blood Disorders: No - INTEGUMENTARY Hx Dermatological Problems: Yes Other/Comment: SKIN ABSCESS - MUSCULOSKELETAL/RHEUMATOLOGICAL Hx Musculoskeletal Disorders: No Hx Falls: No - GASTROINTESTINAL Hx Gastrointestinal Disorders: No - GENITOURINARY/GYNECOLOGICAL Hx Genitourinary Disorders: Yes Other/Comment: SCROTAL EDEMA, RT SIDED REDNESS TO TESTICLES - PSYCHIATRIC Hx Psychophysiologic Disorder: No Hx Substance Use: No - SURGICAL HISTORY Hx Surgeries: Yes (I&D r scrotal abcess 02/2017) - ANESTHESIA Hx Anesthesia: No Meds Allergies/Adverse Reactions: Allergies Allergy/AdvReac Type Severity Reaction Status Date / Time No Known Allergies Allergy Verified 01/31/18 22:26 Physical Exam - Constitutional Appears: Well, Non-toxic - Head Exam Head Exam: ATRAUMATIC, NORMAL INSPECTION - Eye Exam Eye Exam: EOMI, Normal appearance - Respiratory Exam Respiratory Exam: NORMAL BREATHING PATTERN. absent: Respiratory Distress - Cardiovascular Exam Cardiovascular Exam: +S1, +S2 - GI/Abdominal Exam GI & Abdominal Exam: Soft. absent: Distended, Guarding, Rebound, Tenderness - Exam Additional comments: Small fluctuant area right scrotum/groin with small amount purulent drainage, tender Non tender, prominent palpable bilateral lymph nodes - Neurological Exam Neurological exam: Alert, CN II-XII Intact, Oriented x3 - Psychiatric Exam Psychiatric exam: Normal Affect, Normal Mood - Skin Skin Exam: Dry, Normal Color, Warm Results - Vital Signs Recent Vital Signs: Last Vital Signs Temp 98.6 F 02/01/18 02:27 Pulse 60 02/01/18 02:27 Resp 20 02/01/18 02:27 BP 129/67 02/01/18 02:27 Pulse Ox 98 02/01/18 02:02 - Labs Result Diagrams: 02/01/18 07:00 01/31/18 23:05 Assessment & Plan - Assessment and Plan (Free Text) Assessment: 22yo M with PMHx of possible hydradenitis with bilateral scrotal/groin abscesses s/p I&D in July who presents with right scrotal abscess. - Afebrile, VSS - No leukocytosis - Testicular US: lateral to R testicle, 2.7x3.6x0.6cm hypoechoic, slightly heterogenous structure with vascularity- possible phlegmon, can't exclude developing neoplasm - CT Abd/Pelvis ordered to evaluate lymph nodes, evaluate for malignancy and further characterize abscess area - NPO for possible OR today for I&D of abscess - IV fluids - IV antibiotics: Rocephin and Vanco - Discussed plan with Dr. Lewis
[2018-02-01] MEDS ORDERED: Lactated Ringer's 1,000 ML IV SCH (06:30)
[2018-02-01 07:36] VITALS: BP 110/59; TEMP 97.8; O2SAT 99
[2018-02-01 08:00] LABS: BASO # 0.08 K/mm3 (0.0-2.0); BASO % 1.2 % (0.0-3.0); EOS # 0.1 (0.0-0.7); EOS % 1.7 % (1.5-5.0); GRAN # 3.62 (1.4-6.5); GRAN % 52.1 % (50.0-68.0); HEMOGLOBIN 13.3 g/dL (14.0-18.0); LYMPH # 2.7 (1.2-3.4); LYMPH % 39.1 % (22.0-35.0); MEAN CELL VOLUME 85.7 fl (80.0-105.0); MEAN CORPUSCULAR HEMOGLOBIN 28.4 pg (25.0-35.0); MEAN CORPUSCULAR HGB CONC 33.1 g/dl (31.0-37.0); MEAN PLATELET VOLUME 11.1 fl (7.0-11.0); MONO # 0.4 (0.1-0.6); MONO % 5.9 % (1.0-6.0); RBC 4.69 10^6/uL (3.5-6.1); RED CELL DISTRIBUTION WIDTH 13.2 % (11.5-14.5)
[2018-02-01 08:13] LABS: INR 0.98 (0.93-1.08); PARTIAL THROMBOPLASTIN TIME 34.7 Seconds (25.1-36.5); PROTHROMBIN TIME 11.3 SECONDS (9.4-12.5)
[2018-02-01 08:14] LABS: BLOOD UREA NITROGEN 13 mg/dL (7-21); CALCIUM 9.3 mg/dL (8.4-10.5); GFR AFRICAN-AMERICAN > 60; GFR NON-AFRICAN AMERICAN > 60
--- NOTE | 2018-02-01 09:35 | US ---
HISTORY: Right scrotal swelling, patient feels lump 2 months duration lateral to the right testicle. TECHNIQUE: Realtime sonography through the scrotum with color and doppler flow. COMPARISON: 07/29/2017 and 03/19/2017 serial testicular studies FINDINGS: RIGHT TESTICLE: Measures 2.7 x 3.4 x 5.6 cm. Normal echotexture and flow. RIGHT EPIDIDYMIS: Epididymal head measures 0.7 x 0.8 x 1.2 cm. Grossly unremarkable appearance with normal flow. LEFT TESTICLE: Measures 2.4 x 3.8 x 5.7 cm. Normal echotexture and flow. LEFT EPIDIDYMIS: Epididymal head measures 0.8 x 1 x 1.2 cm. Grossly unremarkable appearance with normal flow. HYDROCELE: None. VARICOCELE: None. OTHER FINDINGS: Hypervascular mass lateral to the right testicle measures 0.6 x 3.6 cm. The finding is most likely infectious/ inflammatory. The mass is interposed between the right testicle in the scrotal sac. A phlegmonous process in the left scrotal sac apparent on prior studies has resolved. IMPRESSION: Superficial hypoechoic hypervascular mass interposed between the right testicle in scrotal sac. The findings are most likely infectious/ inflammatory. Follow-up to resolution strongly recommended. Concordant results (preliminary interpretation) provided by [employer]. Procedure Completed: 23:38 Preliminary ([facility]) Report: Dictated and Authenticated: 00:23 Final Interpretation: 09:33
[2018-02-01] MEDS ORDERED: Vancomycin 1gm in NS 250ml 1 GM/250 ML BAG IVPB SCH (10:00)
[2018-02-01] MEDS ORDERED: cefTRIAXone 1 gm 1 GM/100 ML BAG IVPB SCH (13:00)
== END 2018-02-01 13:43 | disposition left against medical advice (07) ==
LOC: ED 22:14 → ERH 02-01 00:56 → 5RSO 02-01 02:05
PROVIDERS: ADMIT Surgery; ATTEND Surgery
DX: N49.2 Inflammatory disorders of scrotum (principal); R36.9 Urethral discharge, unspecified; Z87.891 Personal history of nicotine dependence
CPT/HCPCS: 36415; 80048; 80053; 81001; 85025; 85610; 85730; 87086; 87390; 93975; 96365; 96367; 96372; 96375; 96376; 99284; G0378; J0696; J1885; J7120

== ENCOUNTER 2018-04-30 06:54 | Observation (INO) | payer OTHER ==
[2018-04-30 07:00] VITALS: BMI 31.6
[2018-04-30] MEDS ORDERED: Morphine 4 mg/ml ISec IVP STA (07:33)
[2018-04-30] MEDS ORDERED: Sodium Chloride 0.9% 1,000 ML IV STA (07:33)
--- NOTE | 2018-04-30 07:36 | ED PDOC ---
Arrival/HPI - General Chief Complaint: Abnormal Skin Integrity Time Seen by Provider: 04/30/18 07:25 Historian: Patient - History of Present Illness Narrative History of Present Illness (Text): 04/30/18 07:25 A 22 year old male, whose past medical history includes scrotum cellulitis, presents to the emergency department complaining of worsening of right cyst groin. Patient reports he was here 1 week ago for the same complaint and was referred to see a surgeon. Patient states he was suppose to have a procedure performed to remove cyst but was scared to go to appointment. Since last week, cyst has grown and has become worse. Currently, the pain worsens with right leg movement, which he mentions did not happen before. Also, patient mentions he was prescribed antibiotics, however explains he has not had the time to retrieve them from the pharmacy. Patient denies any hematuria, dysuria, fever, or any other complaints at this time. No PMD Past Medical History - Provider Review Nursing Documentation Reviewed: Yes - Infectious Disease Hx of Infectious Diseases: None - Cardiac Hx Cardiac Disorders: No - Pulmonary Hx Respiratory Disorders: No - Neurological Hx Neurological Disorder: No - HEENT Hx HEENT Disorder: No - Renal Hx Renal Disorder: No - Endocrine/Metabolic Hx Endocrine Disorders: No - Hematological/Oncological Hx Blood Disorders: No - Integumentary Hx Dermatological Disorder: Yes Other/Comment: SKIN ABSCESS - Musculoskeletal/Rheumatological Hx Musculoskeletal Disorders: No Hx Falls: No - Gastrointestinal Hx Gastrointestinal Disorders: No - Genitourinary/Gynecological Hx Genitourinary Disorders: Yes Other/Comment: SCROTAL EDEMA, RT SIDED REDNESS TO TESTICLES - Psychiatric Hx Psychophysiologic Disorder: No Hx Substance Use: Yes (weed) - Anesthesia Hx Anesthesia: No Family/Social History - Physician Review Nursing Documentation Reviewed: Yes Family/Social History: No Known Family HX Smoking Status: Light Smoker < 10 Cigarettes Daily Hx Alcohol Use: Yes (SOCIAL) Hx Substance Use: Yes (weed) Allergies/Home Meds Allergies/Adverse Reactions: Allergies No Known Allergies Allergy (Verified 04/30/18 07:03) Home Medications: Home Meds Medication Instructions Recorded Confirmed No Known Home Med 04/20/18 04/30/18 Review of Systems - Physician Review All systems were reviewed & negative as marked: Yes - Review of Systems Constitutional: absent: Fevers Genitourinary Male: Other (right groin cyst). absent: Dysuria, Hematuria Physical Exam Vital Signs Reviewed: Yes Vital Signs Temp Pulse Resp BP Pulse Ox 04/30/18 07:20 98.0 F 75 18 126/69 97 04/30/18 06:59 98.0 F 75 19 155/73 H 97 Temperature: Afebrile Blood Pressure: Normal Pulse: Regular Respiratory Rate: Normal Appearance: Positive for: Well-Appearing, Non-Toxic, Comfortable Pain Distress: None Mental Status: Positive for: Alert and Oriented X 3 - Systems Exam Respiratory/Chest: Present: Clear to Auscultation, Good Air Exchange. No: Respiratory Distress, Accessory Muscle Use Cardiovascular: Present: Regular Rate and Rhythm, Normal S1, S2. No: Murmurs Abdomen: No: Tenderness, Distention, Peritoneal Signs Genitourinary Male: Present: Masses (large mass noted to right groin, tenderness to palpation.), Other (well-circumscribed). No: Erythema Upper Extremity: Present: Normal Inspection. No: Cyanosis, Edema Lower Extremity: Present: Normal Inspection. No: Edema Neurological: Present: GCS=15, CN II-XII Intact, Speech Normal Skin: Present: Warm, Dry, Normal Color. No: Rashes Psychiatric: Present: Alert, Oriented x 3, Normal Insight, Normal Concentration Medical Decision Making ED Course and Treatment: 04/30/18 07:27 Impression: 22 year old male with right groin cyst painful with movement of right leg. Physical exam shows large mass noted to right groin, tenderness to pa lpation, well-circumscribed, non-erythematous. Plan: --Labs --Clindamycin --IV Fluids --Morphine --Surgery consult -- Urinalysis -- Reassess and disposition Prior Visits: Notes and results from previous visits were reviewed. Patient was last seen in the emergency department on 04/21/2018 for abscess in the right inguinal area extending to the right testicle and right perineum. Patient was admitted. Progress Notes: 04/30/18 08:19 Labs reviewed with no leukocytosis noted, but leftward shift present. Clindamycin ordered. Call placed to surgery resident. 04/30/18 08:24 Spoke to surgery resident who will come and evaluate patient. - Lab Interpretations I have reviewed the lab results: Yes - Scribe Statement The provider has reviewed the documentation as recorded by the Sweetie Georges Provider Scribe Attestation: All medical record entries made by the Scribe were at my direction and personally dictated by me. I have reviewed the chart and agree that the record accurately reflects my personal performance of the history, physical exam, medical decision making, and the department course for this patient. I have also personally directed, reviewed, and agree with the discharge instructions and disposition. Disposition/Present on Arrival - Present on Arrival History of DVT/PE: No History of Uncontrolled Diabetes: No Urinary Catheter: No History of Decub. Ulcer: No History Surgical Site Infection Following: None - Disposition Forms: [facility] ([place]an)
[2018-04-30 08:04] LABS: BASO # 0.05 K/mm3 (0.0-2.0); BASO % 0.5 % (0.0-3.0); EOS # 0.1 (0.0-0.7); EOS % 1.1 % (1.5-5.0); GRAN # 7.69 (1.4-6.5); GRAN % 71.3 % (50.0-68.0); HEMOGLOBIN 14.8 g/dL (14.0-18.0); LYMPH # 2.2 (1.2-3.4); MEAN CELL VOLUME 85.3 fl (80.0-105.0); MEAN CORPUSCULAR HEMOGLOBIN 29.3 pg (25.0-35.0); MEAN CORPUSCULAR HGB CONC 34.3 g/dl (31.0-37.0); MEAN PLATELET VOLUME 11.4 fl (7.0-11.0); MONO # 0.8 (0.1-0.6); MONO % 7.1 % (1.0-6.0); RBC 5.05 10^6/uL (3.5-6.1); RED CELL DISTRIBUTION WIDTH 13.2 % (11.5-14.5); VENOUS BLOOD GAS BASE EXCESS 0.9 mmol/L (0.0-2.0); VENOUS BLOOD GAS PO2 45 mm/Hg (30-55); VENOUS BLOOD PH 7.34 (7.32-7.43); WHITE BLOOD COUNT 10.8 10^3/ul (4.5-11.0)
[2018-04-30 08:12] LABS: INR 1.07; PARTIAL THROMBOPLASTIN TIME 34.4 Seconds (25.1-36.5); PROTHROMBIN TIME 12.3 SECONDS (9.4-12.5)
[2018-04-30 08:21] LABS: ALB/GLOB RATIO 1.5 (1.1-1.8); ALBUMIN 4.5 g/dL (3.0-4.8); ALT/SGPT 25 U/L (7-56); AST/SGOT 23 U/L (17-59); BLOOD UREA NITROGEN 9 mg/dL (7-21); CALCIUM 9.6 mg/dL (8.4-10.5); GFR NON-AFRICAN AMERICAN > 60
[2018-04-30] MEDS ORDERED: Clindamycin in D5W 300 MG/50 ML BAG IV STA (08:23)
--- NOTE | 2018-04-30 10:56 | CP.PCM.HP ---
<AdlerJeanie garner - Last Filed: 04/30/18 19:00> History of Present Illness - History of Present Illness History of Present Illness: History and physical for Dr. Seth Mr. toth is a 22 yr old Male with no PMH who presents to the [facility] complaining of an infection in his right groin area. He was previously seen at [facility] on 04/21/18 for the same problem and left AMA and never filled the an tibiotic prescription he was given. He states that the problem began with a small red area in the right anterior groin area and progressively worsened over the past 12-15 days. He describes the pain as sharp and throbbing over the area and worsened with movement or compression ofthe area. He denies having had any fevers, chills, nausea, vomiting, dizziness, sweating dysuria, blood in stool or stool changes. He had been controlling the pain with aleve and motrin but was unsuccessful for the past 2 days. PMH: denies PSH:denies Social: social ETOH, Occasional Marijuana, 08/01 ppd Allergies: NKDA Medications: denies PMD: denies No pharmacy preference Present on Admission - Present on Admission Any Indicators Present on Admission: No Review of Systems - Review of Systems All systems: reviewed and no additional remarkable complaints except Review of Systems: as per HPI Past Patient History - Infectious Disease Hx of Infectious Diseases: None - Past Social History Smoking Status: Light Smoker < 10 Cigarettes Daily - CARDIAC Hx Cardiac Disorders: No - PULMONARY Hx Respiratory Disorders: No - NEUROLOGICAL Hx Neurological Disorder: No - HEENT Hx HEENT Problems: No - RENAL Hx Chronic Kidney Disease: No - ENDOCRINE/METABOLIC Hx Endocrine Disorders: No - HEMATOLOGICAL/ONCOLOGICAL Hx Blood Disorders: No - INTEGUMENTARY Hx Dermatological Problems: Yes Other/Comment: SKIN ABSCESS - MUSCULOSKELETAL/RHEUMATOLOGICAL Hx Musculoskeletal Disorders: No Hx Falls: No - GASTROINTESTINAL Hx Gastrointestinal Disorders: No - GENITOURINARY/GYNECOLOGICAL Hx Genitourinary Disorders: Yes Other/Comment: SCROTAL EDEMA, RT SIDED REDNESS TO TESTICLES - PSYCHIATRIC Hx Psychophysiologic Disorder: No Hx Substance Use: Yes (weed) - SURGICAL HISTORY Hx Surgeries: Yes (i&d 02/2017) - ANESTHESIA Hx Anesthesia: No Meds Home Medications: Home Medication List Medication Instructions Recorded Confirmed Type Amoxicillin/Clavulanate [Augmentin 1 tab PO BID 5 Days tab 05/01/18 Rx 875 MG-125 MG] Doxycycline Hyclate 100 mg PO BID 5 Days capsule 05/01/18 Rx Allergies/Adverse Reactions: Allergies Allergy/AdvReac Type Severity Reaction Status Date / Time No Known Allergies Allergy Verified 04/30/18 11:38 Physical Exam - Constitutional Appears: Well, Non-toxic, No Acute Distress Additional comments: tearful on exam but nontachycardic and normotensive - Head Exam Head Exam: ATRAUMATIC, NORMOCEPHALIC - Eye Exam Eye Exam: EOMI, Normal appearance - ENT Exam ENT Exam: Mucous Membranes Moist - Respiratory Exam Respiratory Exam: NORMAL BREATHING PATTERN - Cardiovascular Exam Cardiovascular Exam: REGULAR RHYTHM - GI/Abdominal Exam GI & Abdominal Exam: Normal Bowel Sounds, Soft. absent: Distended, Guarding, Rigid, Tenderness - Exam Exam: absent: Testicular Tenderness, Uretheral Discharge Additional comments: 4cm x 5 cm erythematous tender fluctuant and indurated area in the right groin with extension of the induration 4-5 cm proximal and 2-3 cm distal onto the scrotum. The entire area is tender but shows no signs of necrosis, crepitus, or tissue breakdown - Extremities Exam Extremities exam: Positive for: pedal pulses present. Negative for: calf te nderness, pedal edema - Neurological Exam Neurological exam: Alert, CN II-XII Intact, Oriented x3 - Psychiatric Exam Psychiatric exam: Normal Affect, Normal Mood - Skin Skin Exam: Dry, Erythema, Intact, Warm Additional comments: 4cm x 5 cm erythematous tender fluctuant and indurated area in the right groin with extension of the induration 4-5 cm proximal and 2-3 cm distal onto the scrotum. The entire area is tender but shows no signs of necrosis, crepitus, or tissue breakdown Results - Vital Signs Recent Vital Signs: Last Vital Signs Temp 98.0 F 04/30/18 07:20 Pulse 50 L 04/30/18 09:03 Resp 18 04/30/18 07:20 BP 112/47 L 04/30/18 09:03 Pulse Ox 100 04/30/18 09:03 - Labs Result Diagrams: 04/30/18 07:55 04/30/18 07:55 Labs: Laboratory Results - last 24 hr 04/30/18 04/30/18 04/30/18 07:55 07:55 07:55 WBC 10.8 D RBC 5.05 Hgb 14.8 Hct 43.1 MCV 85.3 MCH 29.3 MCHC 34.3 RDW 13.2 Plt Count 230 MPV 11.4 H Gran % 71.3 H Lymph % (Auto) 20.0 L [place] % (Auto) 7.1 H Eos % (Auto) 1.1 L Baso % (Auto) 0.5 Gran # 7.69 H Lymph # (Auto) 2.2 [place] # (Auto) 0.8 H Eos # (Auto) 0.1 Baso # (Auto) 0.05 ESR 1 PT 12.3 INR 1.07 APTT 34.4 pO2 VBG pH VBG pCO2 VBG HCO3 VBG Total CO2 VBG O2 Sat (Calc) VBG Base Excess VBG Potassium Sodium 140 Chloride 105 Glucose Lactate FiO2 Potassium 4.0 Carbon Dioxide 26 Anion Gap 13 BUN 9 Creatinine 0.8 Est GFR ( Amer) > 60 Est GFR (Non-Af Amer) > 60 Random Glucose 99 Calcium 9.6 Magnesium 2.1 Total Bilirubin 0.9 AST 23 ALT 25 Alkaline Phosphatase 99 Total Protein 7.6 Albumin 4.5 Globulin 3.1 Albumin/Globulin Ratio 1.5 Venous Blood Potassium Blood Type Antibody Screen BBK History Checked 04/30/18 04/30/18 07:55 07:55 WBC RBC Hgb Hct MCV MCH MCHC RDW Plt Count MPV Gran % Lymph % (Auto) [place] % (Auto) Eos % (Auto) Baso % (Auto) Gran # Lymph # (Auto) [place] # (Auto) Eos # (Auto) Baso # (Auto) ESR PT INR APTT pO2 45 VBG pH 7.34 VBG pCO2 51.0 VBG HCO3 27.5 VBG Total CO2 29.1 H VBG O2 Sat (Calc) 83.6 H VBG Base Excess 0.9 VBG Potassium 3.8 Sodium 138.0 Chloride 106.0 Glucose 95 Lactate 0.9 FiO2 21.0 Potassium Carbon Dioxide Anion Gap BUN Creatinine Est GFR ( Amer) Est GFR (Non-Af Amer) Random Glucose Calcium Magnesium Total Bilirubin AST ALT Alkaline Phosphatase Total Protein Albumin Globulin Albumin/Globulin Ratio Venous Blood Potassium 3.8 Blood Type O POSITIVE Antibody Screen Negative BBK History Checked No verified bt Assessment & Plan - Assessment and Plan (Free Text) Assessment: 22 yr old amle with no PMH presents with right groin abscess, founier's gangrene unlikely d/t lack of necrotic appearing tissue, normal WBC, afebrile no foul smell, and no tissue sloughing/. Patient is afebrile, normotensive, nontachycardic and nontachypniec on exam. Plan: Right Groin Abcsess * afebrile, WBC 10.8, normotensive, nontachycardic * 4cm x5 cm erythematous raised tender fluctuant and indurated area in Right groin extending 2 cm into the right scrotal area * continue with Clindamycin * given 1L NS bolus in ED, normotensive throughout * Surgery consulted, recs appreciated * T * f/u wound culture Patient seen and discussed with Dr. Dorinda Adler, PGY 1 - Date & Time Date: 04/30/18 Time: 10:15 Decision To Admit - . Bed Request Type: Med/Surg <Shaun Seth - Last Filed: 05/01/18 17:19> Results - Vital Signs Recent Vital Signs: Last Vital Signs Temp 97.5 F L 05/01/18 06:00 Pulse 58 L 05/01/18 06:00 Resp 20 05/01/18 06:00 BP 116/52 L 05/01/18 06:00 Pulse Ox 97 05/01/18 06:00 - Labs Result Diagrams: 05/01/18 07:00 05/01/18 07:00 Labs: Laboratory Results - last 24 hr 05/01/18 05/01/18 07:00 07:00 WBC 7.4 D RBC 4.77 Hgb 13.6 L Hct 41.2 L MCV 86.4 MCH 28.5 MCHC 33.0 RDW 13.3 Plt Count 223 MPV 11.2 H Gran % 50.9 Lymph % (Auto) 37.3 H [place] % (Auto) 9.0 H Eos % (Auto) 2.0 Baso % (Auto) 0.8 Gran # 3.74 Lymph # (Auto) 2.7 [place] # (Auto) 0.7 H Eos # (Auto) 0.2 Baso # (Auto) 0.06 ESR 3 Sodium 139 Potassium 4.1 Chloride 104 Carbon Dioxide 28 Anion Gap 11 BUN 9 Creatinine 0.9 Est GFR ( Amer) > 60 Est GFR (Non-Af Amer) > 60 Random Glucose 91 Calcium 8.9 Phosphorus 4.0 Magnesium 2.0 Total Bilirubin 0.7 AST 21 ALT 27 Alkaline Phosphatase 85 Total Protein 6.7 Albumin 4.0 Globulin 2.8 Albumin/Globulin Ratio 1.4 Attending/Attestation - Attestation I have personally seen and examined this patient.: Yes I have fully participated in the care of the patient.: Yes I have reviewed all pertinent clinical information: Yes Notes (Text): 05/01/18 17:14 Attending note; Patient seen and examined with resident. Patient is a 22-year-old Male with no PMH of recurrent right groin abscess is admitted with pain and swelling in the right groin area . Patient was seen by surgery during previous visits. Currently CAT scan done a week ago showed right inguinal area abscess. Surgery evaluation requested. Possible incision and drainage. Started on IV vancomycin, Zosyn and doxycycline . ID evaluation requested . Noncompliance with medical treatment and follow-up. Patient will be referred to [facility] clinic upon discharge.
[2018-04-30 11:21] LABS: URINE BILIRUBIN NEGATIVE (NEGATIVE); URINE BLOOD NEGATIVE (NEGATIVE); URINE GLUCOSE (UA) NEGATIVE (NEGATIVE); URINE LEUKOCYTE ESTERASE NEGATIVE Leu/uL (NEGATIVE); URINE PROTEIN NEGATIVE mg/dL (<30 mg/dL); URINE UROBILINOGEN 0.2 E.U./dL (<1 E.U./dL)
[2018-04-30 11:44] LABS: URINE APPEARANCE CLEAR (CLEAR); URINE COLOR YELLOW (YELLOW)
--- NOTE | 2018-04-30 12:05 | CP.PCM.CON ---
History of Present Illness - History of Present Illness History of Present Illness: General surgery consult note for Dr. Ross Patient is a 22 year old male with past medical history significant for recurrent groin abscesses, presenting with right groin pain. Patient states he started having groin pain about one month ago. He noticed that the area is getting bigger and extending to his scrotum. No drainage reported. Patient was here last week for the same complaint but left AMA. Patient was given PO antibiotics but did not fill his prescriptions due to insurance issues. Patient denies fevers, chills, nausea, vomiting, chest pain, SOB, abdominal pain, rectal pain, pain dysuria, or penile discharge. Otherwise, 12 point review of system was negative. No PMD PMHx: see above Allergies: NKDA PSHx: multiple I&D of groin abscesses; inguinal lymph node excision SHx: 1ppd; occasional marijuana use; denies EtOH FHx: DM2, HTN Past Patient History - Infectious Disease Hx of Infectious Diseases: None - Past Social History Smoking Status: Light Smoker < 10 Cigarettes Daily - CARDIAC Hx Cardiac Disorders: No - PULMONARY Hx Respiratory Disorders: No - NEUROLOGICAL Hx Neurological Disorder: No - HEENT Hx HEENT Problems: No - RENAL Hx Chronic Kidney Disease: No - ENDOCRINE/METABOLIC Hx Endocrine Disorders: No - HEMATOLOGICAL/ONCOLOGICAL Hx Blood Disorders: No - INTEGUMENTARY Hx Dermatological Problems: Yes Other/Comment: SKIN ABSCESS - MUSCULOSKELETAL/RHEUMATOLOGICAL Hx Musculoskeletal Disorders: No Hx Falls: No - GASTROINTESTINAL Hx Gastrointestinal Disorders: No - GENITOURINARY/GYNECOLOGICAL Hx Genitourinary Disorders: Yes Other/Comment: SCROTAL EDEMA, RT SIDED REDNESS TO TESTICLES - PSYCHIATRIC Hx Psychophysiologic Disorder: No Hx Substance Use: Yes (weed) - SURGICAL HISTORY Hx Surgeries: Yes (i&d 02/2017) - ANESTHESIA Hx Anesthesia: No Meds Allergies/Adverse Reactions: Allergies Allergy/AdvReac Type Severity Reaction Status Date / Time No Known Allergies Allergy Verified 04/30/18 11:38 Physical Exam - Constitutional Appears: Well, Non-toxic, No Acute Distress - Head Exam Head Exam: ATRAUMATIC, NORMOCEPHALIC - Eye Exam Eye Exam: Normal appearance - ENT Exam ENT Exam: Mucous Membranes Moist - Respiratory Exam Respiratory Exam: NORMAL BREATHING PATTERN. absent: Respiratory Distress - Cardiovascular Exam Cardiovascular Exam: RRR. absent: Tachycardia - GI/Abdominal Exam GI & Abdominal Exam: Soft. absent: Distended, Guarding, Tenderness - Exam Exam: absent: Circumcision, Scrotal Swelling, Testicular Tenderness, Uretheral Discharge External exam: Erythema (4cm x 5 cm erythematous tender fluctuant and indurated area in the right groin. Area is very tender to palpation but shows no signs of necrosis, crepitus, or tissue breakdown) - Extremities Exam Extremities exam: Positive for: normal inspection - Neurological Exam Neurological exam: Alert, Oriented x3 - Psychiatric Exam Psychiatric exam: Normal Affect, Normal Mood - Skin Skin Exam: Dry, Intact, Normal Color, Warm Results - Vital Signs Recent Vital Signs: Last Vital Signs Temp 98.0 F 04/30/18 10:56 Pulse 66 04/30/18 10:56 Resp 18 04/30/18 10:56 BP 139/91 H 04/30/18 10:56 Pulse Ox 100 04/30/18 10:56 - Labs Result Diagrams: 04/30/18 07:55 04/30/18 07:55 Labs: Laboratory Results - last 24 hr 04/30/18 04/30/18 04/30/18 07:55 07:55 07:55 WBC 10.8 D RBC 5.05 Hgb 14.8 Hct 43.1 MCV 85.3 MCH 29.3 MCHC 34.3 RDW 13.2 Plt Count 230 MPV 11.4 H Gran % 71.3 H Lymph % (Auto) 20.0 L [place] % (Auto) 7.1 H Eos % (Auto) 1.1 L Baso % (Auto) 0.5 Gran # 7.69 H Lymph # (Auto) 2.2 [place] # (Auto) 0.8 H Eos # (Auto) 0.1 Baso # (Auto) 0.05 ESR 1 PT 12.3 INR 1.07 APTT 34.4 pO2 VBG pH VBG pCO2 VBG HCO3 VBG Total CO2 VBG O2 Sat (Calc) VBG Base Excess VBG Potassium Sodium 140 Chloride 105 Glucose Lactate FiO2 Potassium 4.0 Carbon Dioxide 26 Anion Gap 13 BUN 9 Creatinine 0.8 Est GFR ( Amer) > 60 Est GFR (Non-Af Amer) > 60 Random Glucose 99 Calcium 9.6 Magnesium 2.1 Total Bilirubin 0.9 AST 23 ALT 25 Alkaline Phosphatase 99 Total Protein 7.6 Albumin 4.5 Globulin 3.1 Albumin/Globulin Ratio 1.5 Venous Blood Potassium Urine Color Urine Appearance Urine pH Ur Specific [place] Urine Protein Urine Glucose (UA) Urine Ketones Urine Blood Urine Nitrate Urine Bilirubin Urine Urobilinogen Ur Leukocyte Esterase Blood Type Blood Type Confirm Antibody Screen BBK History Checked 04/30/18 04/30/18 04/30/18 07:55 07:55 10:15 WBC RBC Hgb Hct MCV MCH MCHC RDW Plt Count MPV Gran % Lymph % (Auto) [place] % (Auto) Eos % (Auto) Baso % (Auto) Gran # Lymph # (Auto) [place] # (Auto) Eos # (Auto) Baso # (Auto) ESR PT INR APTT pO2 45 VBG pH 7.34 VBG pCO2 51.0 VBG HCO3 27.5 VBG Total CO2 29.1 H VBG O2 Sat (Calc) 83.6 H VBG Base Excess 0.9 VBG Potassium 3.8 Sodium 138.0 Chloride 106.0 Glucose 95 Lactate 0.9 FiO2 21.0 Potassium Carbon Dioxide Anion Gap BUN Creatinine Est GFR ( Amer) Est GFR (Non-Af Amer) Random Glucose Calcium Magnesium Total Bilirubin AST ALT Alkaline Phosphatase Total Protein Albumin Globulin Albumin/Globulin Ratio Venous Blood Potassium 3.8 Urine Color Urine Appearance Urine pH Ur Specific [place] Urine Protein Urine Glucose (UA) Urine Ketones Urine Blood Urine Nitrate Urine Bilirubin Urine Urobilinogen Ur Leukocyte Esterase Blood Type O POSITIVE Blood Type Confirm O POSITIVE Antibody Screen Negative BBK History Checked No verified bt 04/30/18 11:07 WBC RBC Hgb Hct MCV MCH MCHC RDW Plt Count MPV Gran % Lymph % (Auto) [place] % (Auto) Eos % (Auto) Baso % (Auto) Gran # Lymph # (Auto) [place] # (Auto) Eos # (Auto) Baso # (Auto) ESR PT INR APTT pO2 VBG pH VBG pCO2 VBG HCO3 VBG Total CO2 VBG O2 Sat (Calc) VBG Base Excess VBG Potassium Sodium Chloride Glucose Lactate FiO2 Potassium Carbon Dioxide Anion Gap BUN Creatinine Est GFR ( Amer) Est GFR (Non-Af Amer) Random Glucose Calcium Magnesium Total Bilirubin AST ALT Alkaline Phosphatase Total Protein Albumin Globulin Albumin/Globulin Ratio Venous Blood Potassium Urine Color Yellow Urine Appearance Clear Urine pH 6.0 Ur Specific [place] 1.025 Urine Protein Negative Urine Glucose (UA) Negative Urine Ketones Negative Urine Blood Negative Urine Nitrate Negative Urine Bilirubin Negative Urine Urobilinogen 0.2 Ur Leukocyte Esterase Negative Blood Type Blood Type Confirm Antibody Screen BBK History Checked Assessment & Plan - Assessment and Plan (Free Text) Assessment: 22 year old male with recurrent right groin abscesses presenting with right groin abscess with surrounding cellulitis. Plan: - Bedside I & D - Continue with IV antibiotics Discussed case with Dr. Cody Tello DO PGY-1
[2018-04-30] MEDS ORDERED: Morphine 4 mg/ml ISec IVP PRN (12:19)
[2018-04-30 12:39] LABS: BARBITURATES, UR NEGATIVE (NEGATIVE); BENZODIAZEPINES, UR NEGATIVE (NEGATIVE)
[2018-04-30 12:40] LABS: OPIATES, UR POSITIVE (NEGATIVE); PHENCYCLIDINE, UR NEGATIVE (NEGATIVE)
[2018-04-30] MEDS ORDERED: Pneumococcal 23-Valent Vaccine IM ONE (13:07)
[2018-04-30] MEDS ORDERED: Influenza Vaccine 60 mcg/0.5 mL SYR (4YR UP) IM ONE (13:07)
[2018-04-30] MEDS ORDERED: Lidocaine 1% Inj (20ml) IJ STA (13:09)
[2018-04-30] MEDS ORDERED: Lidocaine 1% 5ml Abboject IV STA (13:14)
--- NOTE | 2018-04-30 14:33 | PCM.PROC ---
- Incision & Drainage Of Abscess Anesthesia: Lidocaine 1% (5cc) Prep Used: Betadine Procedure: Incised W/Scalpel Blade#: (11), Drained Pus, Irrigated Cavity W/Saline, Probed To Break Up Loculations, Packed W/Gauze, Cultures Obtained And Sent To Lab
[2018-04-30] MEDS: Vancomycin 1gm in NS 250ml 1 GM/250 ML BAG IVPB SCH (15:11)
[2018-04-30] MEDS: Piperacillin/Tazobact 3.375 gm 100 ML IVPB SCH ×2 (17:29→23:42)
[2018-05-01] MEDS: Vancomycin 1gm in NS 250ml 1 GM/250 ML BAG IVPB SCH (01:53)
[2018-05-01 07:27] LABS: BASO # 0.06 K/mm3 (0.0-2.0); BASO % 0.8 % (0.0-3.0); EOS # 0.2 (0.0-0.7); GRAN # 3.74 (1.4-6.5); GRAN % 50.9 % (50.0-68.0); HEMOGLOBIN 13.6 g/dL (14.0-18.0); LYMPH # 2.7 (1.2-3.4); LYMPH % 37.3 % (22.0-35.0); MEAN CELL VOLUME 86.4 fl (80.0-105.0); MEAN CORPUSCULAR HEMOGLOBIN 28.5 pg (25.0-35.0); MEAN PLATELET VOLUME 11.2 fl (7.0-11.0); MONO # 0.7 (0.1-0.6); RBC 4.77 10^6/uL (3.5-6.1); RED CELL DISTRIBUTION WIDTH 13.3 % (11.5-14.5); WHITE BLOOD COUNT 7.4 10^3/ul (4.5-11.0)
[2018-05-01 07:47] LABS: ALB/GLOB RATIO 1.4 (1.1-1.8); ALT/SGPT 27 U/L (7-56); AST/SGOT 21 U/L (17-59); BLOOD UREA NITROGEN 9 mg/dL (7-21); CALCIUM 8.9 mg/dL (8.4-10.5); GFR NON-AFRICAN AMERICAN > 60
[2018-05-01 08:03] VITALS: BP 116/52; PULSE 58; RESP 20; TEMP 97.5; O2SAT 97
--- NOTE | 2018-05-01 11:36 | CP.PCM.PN ---
Subjective - Date & Time of Evaluation Date of Evaluation: 05/01/18 Time of Evaluation: 07:15 - Subjective Subjective: Patient seen and examined. No acute events over night. Denies fever/chills. Packing removed. Objective - Vital Signs/Intake and Output Vital Signs (last 24 hours): Temp Pulse Resp BP Pulse Ox 97.5 F L 58 L 20 116/52 L 97 05/01/18 06:00 05/01/18 06:00 05/01/18 06:00 05/01/18 06:00 05/01/18 06:00 Intake and Output: 05/01/18 05/01/18 06:59 18:59 Intake Total 660 Output Total 300 Balance 360 - Medications Medications: Current Medications Acetaminophen (Tylenol 325mg Tab) 650 mg PO Q4H PRN PRN Reason: Pain, Mild (1-3) Last Admin: 04/30/18 21:30 Dose: 650 mg Doxycycline Hyclate 100 mg/ (Sodium Chloride) 100 mls @ 100 mls/hr IVPB Q12 CRISTHIAN; Protocol Last Admin: 05/01/18 10:30 Dose: 100 mls/hr Vancomycin HCl (Vancomycin 1gm) 1 gm in 250 mls @ 167 mls/hr IVPB Q12H CRISTHIAN; Protocol Last Admin: 05/01/18 01:53 Dose: 167 mls/hr Tramadol HCl (Ultram) 50 mg PO TID PRN PRN Reason: Pain, moderate (4-7) Last Admin: 05/01/18 10:29 Dose: 50 mg - Labs Labs: 05/01/18 07:00 05/01/18 07:00 PT 12.3 SECONDS (9.4-12.5) 04/30/18 07:55 INR 1.07 04/30/18 07:55 APTT 34.4 Seconds (25.1-36.5) 04/30/18 07:55 - Constitutional Appears: No Acute Distress - Head Exam Head Exam: NORMOCEPHALIC - Eye Exam Eye Exam: Normal appearance - Respiratory Exam Respiratory Exam: NORMAL BREATHING PATTERN - Cardiovascular Exam Cardiovascular Exam: +S1, +S2 - GI/Abdominal Exam GI & Abdominal Exam: Soft - Neurological Exam Neurological Exam: Alert, Awake, Oriented x3 - Psychiatric Exam Psychiatric exam: Normal Mood - Skin Skin Exam: Dry, Normal Color, Warm Additional comments: No purulent drainage noted Assessment and Plan - Assessment and Plan (Free Text) Assessment: 22M with R groin abscess s/p I&D Plan: No active bleeding nor purulent discharge from incision site Wound site repacked with iodoform C/w PO ABx Recommend antibacterial soap No further surgical intervention necessary D/w Dr. Cody Gonzalez PGY3
--- NOTE | 2018-05-01 15:05 | CP.PCM.DIS ---
<Helen Brenner - Last Filed: 05/01/18 15:05> Provider - Provider Date of Admission: 04/30/18 10:09 Attending physician: Shaun Seth MD Primary care physician: none Consults: surgery ID Time Spent in preparation of Discharge (in minutes): 45 Diagnosis - Discharge Diagnosis (1) Abscess of groin, right Status: Acute Priority: High Hospital Course - Lab Results Lab Results: Micro Results 04/30/18 13:53 Abscess - Groin Gram Stain - Final Most Recent Lab Values WBC 7.4 10^3/ul (4.5-11.0) D 05/01/18 07:00 RBC 4.77 10^6/uL (3.5-6.1) 05/01/18 07:00 Hgb 13.6 g/dL (14.0-18.0) L 05/01/18 07:00 Hct 41.2 % (42.0-52.0) L 05/01/18 07:00 MCV 86.4 fl (80.0-105.0) 05/01/18 07:00 MCH 28.5 pg (25.0-35.0) 05/01/18 07:00 MCHC 33.0 g/dl (31.0-37.0) 05/01/18 07:00 RDW 13.3 % (11.5-14.5) 05/01/18 07:00 Plt Count 223 10^3/uL (120.0-450.0) 05/01/18 07:00 MPV 11.2 fl (7.0-11.0) H 05/01/18 07:00 Gran % 50.9 % (50.0-68.0) 05/01/18 07:00 Lymph % (Auto) 37.3 % (22.0-35.0) H 05/01/18 07:00 [place] % (Auto) 9.0 % (1.0-6.0) H 05/01/18 07:00 Eos % (Auto) 2.0 % (1.5-5.0) 05/01/18 07:00 Baso % (Auto) 0.8 % (0.0-3.0) 05/01/18 07:00 Gran # 3.74 (1.4-6.5) 05/01/18 07:00 Lymph # (Auto) 2.7 (1.2-3.4) 05/01/18 07:00 [place] # (Auto) 0.7 (0.1-0.6) H 05/01/18 07:00 Eos # (Auto) 0.2 (0.0-0.7) 05/01/18 07:00 Baso # (Auto) 0.06 K/mm3 (0.0-2.0) 05/01/18 07:00 ESR 3 mm/hr (0.0-15.0) 05/01/18 07:00 PT 12.3 SECONDS (9.4-12.5) 04/30/18 07:55 INR 1.07 04/30/18 07:55 APTT 34.4 Seconds (25.1-36.5) 04/30/18 07:55 pO2 45 mm/Hg (30-55) 04/30/18 07:55 VBG pH 7.34 (7.32-7.43) 04/30/18 07:55 VBG pCO2 51.0 (40-60) 04/30/18 07:55 VBG HCO3 27.5 mmol/l (21-28) 04/30/18 07:55 VBG Total CO2 29.1 mmol.L (22-28) H 04/30/18 07:55 VBG O2 Sat (Calc) 83.6 % (40-65) H 04/30/18 07:55 VBG Base Excess 0.9 mmol/L (0.0-2.0) 04/30/18 07:55 VBG Potassium 3.8 mmol/L (3.6-5.2) 04/30/18 07:55 Sodium 138.0 mmol/L (132-148) 04/30/18 07:55 Chloride 106.0 mmol/L (98-107) 04/30/18 07:55 Glucose 95 mg/dl (75-110) 04/30/18 07:55 Lactate 0.9 mmol/L (0.7-2.1) 04/30/18 07:55 FiO2 21.0 % 04/30/18 07:55 Sodium 139 mmol/L (132-148) 05/01/18 07:00 Potassium 4.1 mmol/L (3.6-5.0) 05/01/18 07:00 Chloride 104 mmol/L (98-107) 05/01/18 07:00 Carbon Dioxide 28 mmol/L (21-33) 05/01/18 07:00 Anion Gap 11 (10-20) 05/01/18 07:00 BUN 9 mg/dL (7-21) 05/01/18 07:00 Creatinine 0.9 mg/dl (0.8-1.5) 05/01/18 07:00 Est GFR ( Amer) > 60 05/01/18 07:00 Est GFR (Non-Af Amer) > 60 05/01/18 07:00 Random Glucose 91 mg/dL (70-110) 05/01/18 07:00 Calcium 8.9 mg/dL (8.4-10.5) 05/01/18 07:00 Phosphorus 4.0 mg/dL (2.5-4.5) 05/01/18 07:00 Magnesium 2.0 mg/dL (1.7-2.2) 05/01/18 07:00 Total Bilirubin 0.7 mg/dL (0.2-1.3) 05/01/18 07:00 AST 21 U/L (17-59) 05/01/18 07:00 ALT 27 U/L (7-56) 05/01/18 07:00 Alkaline Phosphatase 85 U/L (38-126) 05/01/18 07:00 Total Protein 6.7 g/dL (5.8-8.3) 05/01/18 07:00 Albumin 4.0 g/dL (3.0-4.8) 05/01/18 07:00 Globulin 2.8 gm/dL 05/01/18 07:00 Albumin/Globulin Ratio 1.4 (1.1-1.8) 05/01/18 07:00 Venous Blood Potassium 3.8 mmol/L (3.6-5.2) 04/30/18 07:55 Urine Color Yellow (YELLOW) 04/30/18 11:07 Urine Appearance Clear (CLEAR) 04/30/18 11:07 Urine pH 6.0 (4.7-8.0) 04/30/18 11:07 Ur Specific [place] 1.025 (1.005-1.035) 04/30/18 11:07 Urine Protein Negative mg/dL (<30 mg/dL) 04/30/18 11:07 Urine Glucose (UA) Negative mg/dL (NEGATIVE) 04/30/18 11:07 Urine Ketones Negative mg/dL (NEGATIVE) 04/30/18 11:07 Urine Blood Negative (NEGATIVE) 04/30/18 11:07 Urine Nitrate Negative (NEGATIVE) 04/30/18 11:07 Urine Bilirubin Negative (NEGATIVE) 04/30/18 11:07 Urine Urobilinogen 0.2 E.U./dL (<1 E.U./dL) 04/30/18 11:07 Ur Leukocyte Esterase Negative Sd/uL (NEGATIVE) 04/30/18 11:07 Urine Opiates Screen Positive (NEGATIVE) H 04/30/18 11:07 Urine Methadone Screen Negative (NEGATIVE) 04/30/18 11:07 Ur Barbiturates Screen Negative (NEGATIVE) 04/30/18 11:07 Ur Phencyclidine Scrn Negative (NEGATIVE) 04/30/18 11:07 Ur Amphetamines Screen Negative (NEGATIVE) 04/30/18 11:07 U Benzodiazepines Scrn Negative (NEGATIVE) 04/30/18 11:07 U Oth Cocaine Metabols Negative (NEGATIVE) 04/30/18 11:07 U Cannabinoids Screen Positive (NEGATIVE) H 04/30/18 11:07 Blood Type O POSITIVE 04/30/18 07:55 Blood Type Confirm O POSITIVE 04/30/18 10:15 Antibody Screen Negative 04/30/18 07:55 BBK History Checked No verified bt 04/30/18 07:55 - Hospital Course Hospital Course: Manuel Cortes is a 22 yr old male with no PMH who presented to the ED complaining of an infection in his right groin area. He was previously seen at [facility] on 04/21/18 for the same problem and left AMA and never filled the antibiotic prescription he was given. He states that the problem began with a small red area in the right anterior groin area and progressively worsened over the past 12-15 days. He describes the pain as sharp and throbbing over the area and worsened with movement or compression ofthe area. He denies having had any fevers, chills, nausea, vomiting, dizziness, sweating dysuria, blood in stool or stool changes. He had been controlling the pain with Aleve and Motrin but was unsuccessful for the past 2 days. Patient was diagnosed with right scrotal abscess. Surgery was consulted and an incision and drainage was performed by surgery same day of admission. Wound culture was also performed- no growth. Infectious disease were consulted, and the patient was started on zosyn, vancomycin and doxycycline. His WBC trended down from 10.8 to 7.4. During his hospitalization, the patient had a drug test performed which was positive for cannabinoids. On discharge, patient was breathing room air and ambulating without assistance. His pain was well controlled. Discharge Exam - Head Exam Head Exam: NORMOCEPHALIC - Eye Exam Eye Exam: EOMI, Normal appearance, PERRL - ENT Exam ENT Exam: Mucous Membranes Moist, Normal Exam - Neck Exam Neck exam: Full Rom, Normal Inspection - Respiratory Exam Respiratory Exam: Clear to PA & Lateral, NORMAL BREATHING PATTERN, UNREMARKABLE - Cardiovascular Exam Cardiovascular Exam: REGULAR RHYTHM, +S1, +S2 - GI/Abdominal Exam GI & Abdominal Exam: Normal Bowel Sounds, Soft, Unremarkable - Rectal Exam Rectal Exam: Deferred - Extremities Exam Extremities exam: normal inspection, pedal pulses present - Back Exam Back exam: NORMAL INSPECTION - Neurological Exam Neurological exam: Alert, CN II-XII Intact, Normal Gait, Oriented x3 - Psychiatric Exam Psychiatric exam: Normal Affect, Normal Mood - Skin Skin Exam: Dry, Intact, Normal Color, Warm Discharge Plan - Discharge Medications Prescriptions: Amoxicillin/Clavulanate [Augmentin 875 MG-125 MG] 1 tab PO BID 5 Days tab Doxycycline Hyclate 100 mg PO BID 5 Days capsule - Follow Up Plan Condition: GOOD Disposition: HOME/ ROUTINE Instructions: Cellulitis (DC), Cellulitis (GEN), Abscess (GEN) Additional Instructions: Please establish care with the [facility] at [facility]. They will serve as your primary care provider. You have an appointment scheduled for May 15 at 3 PM. ([phone]) Please follow-up with surgery in 2 weeks. Take care of the cleaning, packing, and bandaging of your groin as instructed by surgery. You can purchase any additional supplies over the counter. You will be given a prescription for 2 antibiotics. Please take as instructed, twice daily for 5 days, until all pills completed. If symptoms return, please present to the nearest emergency room. Referrals: [facility] at [facility] [Outside] Jonah Ross MD [Staff Provider] - <Shaun Seth - Last Filed: 05/01/18 17:21> Provider - Provider Date of Admission: 04/30/18 10:09 Attending physician: Shaun Seth MD Hospital Course - Lab Results Lab Results: Micro Results 04/30/18 13:53 Abscess - Groin Gram Stain - Final Most Recent Lab Values WBC 7.4 10^3/ul (4.5-11.0) D 05/01/18 07:00 RBC 4.77 10^6/uL (3.5-6.1) 05/01/18 07:00 Hgb 13.6 g/dL (14.0-18.0) L 05/01/18 07:00 Hct 41.2 % (42.0-52.0) L 05/01/18 07:00 MCV 86.4 fl (80.0-105.0) 05/01/18 07:00 MCH 28.5 pg (25.0-35.0) 05/01/18 07:00 MCHC 33.0 g/dl (31.0-37.0) 05/01/18 07:00 RDW 13.3 % (11.5-14.5) 05/01/18 07:00 Plt Count 223 10^3/uL (120.0-450.0) 05/01/18 07:00 MPV 11.2 fl (7.0-11.0) H 05/01/18 07:00 Gran % 50.9 % (50.0-68.0) 05/01/18 07:00 Lymph % (Auto) 37.3 % (22.0-35.0) H 05/01/18 07:00 [place] % (Auto) 9.0 % (1.0-6.0) H 05/01/18 07:00 Eos % (Auto) 2.0 % (1.5-5.0) 05/01/18 07:00 Baso % (Auto) 0.8 % (0.0-3.0) 05/01/18 07:00 Gran # 3.74 (1.4-6.5) 05/01/18 07:00 Lymph # (Auto) 2.7 (1.2-3.4) 05/01/18 07:00 [place] # (Auto) 0.7 (0.1-0.6) H 05/01/18 07:00 Eos # (Auto) 0.2 (0.0-0.7) 05/01/18 07:00 Baso # (Auto) 0.06 K/mm3 (0.0-2.0) 05/01/18 07:00 ESR 3 mm/hr (0.0-15.0) 05/01/18 07:00 PT 12.3 SECONDS (9.4-12.5) 04/30/18 07:55 INR 1.07 04/30/18 07:55 APTT 34.4 Seconds (25.1-36.5) 04/30/18 07:55 pO2 45 mm/Hg (30-55) 04/30/18 07:55 VBG pH 7.34 (7.32-7.43) 04/30/18 07:55 VBG pCO2 51.0 (40-60) 04/30/18 07:55 VBG HCO3 27.5 mmol/l (21-28) 04/30/18 07:55 VBG Total CO2 29.1 mmol.L (22-28) H 04/30/18 07:55 VBG O2 Sat (Calc) 83.6 % (40-65) H 04/30/18 07:55 VBG Base Excess 0.9 mmol/L (0.0-2.0) 04/30/18 07:55 VBG Potassium 3.8 mmol/L (3.6-5.2) 04/30/18 07:55 Sodium 138.0 mmol/L (132-148) 04/30/18 07:55 Chloride 106.0 mmol/L (98-107) 04/30/18 07:55 Glucose 95 mg/dl (75-110) 04/30/18 07:55 Lactate 0.9 mmol/L (0.7-2.1) 04/30/18 07:55 FiO2 21.0 % 04/30/18 07:55 Sodium 139 mmol/L (132-148) 05/01/18 07:00 Potassium 4.1 mmol/L (3.6-5.0) 05/01/18 07:00 Chloride 104 mmol/L (98-107) 05/01/18 07:00 Carbon Dioxide 28 mmol/L (21-33) 05/01/18 07:00 Anion Gap 11 (10-20) 05/01/18 07:00 BUN 9 mg/dL (7-21) 05/01/18 07:00 Creatinine 0.9 mg/dl (0.8-1.5) 05/01/18 07:00 Est GFR ( Amer) > 60 05/01/18 07:00 Est GFR (Non-Af Amer) > 60 05/01/18 07:00 Random Glucose 91 mg/dL (70-110) 05/01/18 07:00 Calcium 8.9 mg/dL (8.4-10.5) 05/01/18 07:00 Phosphorus 4.0 mg/dL (2.5-4.5) 05/01/18 07:00 Magnesium 2.0 mg/dL (1.7-2.2) 05/01/18 07:00 Total Bilirubin 0.7 mg/dL (0.2-1.3) 05/01/18 07:00 AST 21 U/L (17-59) 05/01/18 07:00 ALT 27 U/L (7-56) 05/01/18 07:00 Alkaline Phosphatase 85 U/L (38-126) 05/01/18 07:00 Total Protein 6.7 g/dL (5.8-8.3) 05/01/18 07:00 Albumin 4.0 g/dL (3.0-4.8) 05/01/18 07:00 Globulin 2.8 gm/dL 05/01/18 07:00 Albumin/Globulin Ratio 1.4 (1.1-1.8) 05/01/18 07:00 Venous Blood Potassium 3.8 mmol/L (3.6-5.2) 04/30/18 07:55 Urine Color Yellow (YELLOW) 04/30/18 11:07 Urine Appearance Clear (CLEAR) 04/30/18 11:07 Urine pH 6.0 (4.7-8.0) 04/30/18 11:07 Ur Specific [place] 1.025 (1.005-1.035) 04/30/18 11:07 Urine Protein Negative mg/dL (<30 mg/dL) 04/30/18 11:07 Urine Glucose (UA) Negative mg/dL (NEGATIVE) 04/30/18 11:07 Urine Ketones Negative mg/dL (NEGATIVE) 04/30/18 11:07 Urine Blood Negative (NEGATIVE) 04/30/18 11:07 Urine Nitrate Negative (NEGATIVE) 04/30/18 11:07 Urine Bilirubin Negative (NEGATIVE) 04/30/18 11:07 Urine Urobilinogen 0.2 E.U./dL (<1 E.U./dL) 04/30/18 11:07 Ur Leukocyte Esterase Negative Sd/uL (NEGATIVE) 04/30/18 11:07 Urine Opiates Screen Positive (NEGATIVE) H 04/30/18 11:07 Urine Methadone Screen Negative (NEGATIVE) 04/30/18 11:07 Ur Barbiturates Screen Negative (NEGATIVE) 04/30/18 11:07 Ur Phencyclidine Scrn Negative (NEGATIVE) 04/30/18 11:07 Ur Amphetamines Screen Negative (NEGATIVE) 04/30/18 11:07 U Benzodiazepines Scrn Negative (NEGATIVE) 04/30/18 11:07 U Oth Cocaine Metabols Negative (NEGATIVE) 04/30/18 11:07 U Cannabinoids Screen Positive (NEGATIVE) H 04/30/18 11:07 Blood Type O POSITIVE 04/30/18 07:55 Blood Type Confirm O POSITIVE 04/30/18 10:15 Antibody Screen Negative 04/30/18 07:55 BBK History Checked No verified bt 04/30/18 07:55 Attending/Attestation - Attestation I have personally seen and examined this patient.: Yes I have fully participated in the care of the patient.: Yes I have reviewed all pertinent clinical information, including history, physical exam and plan: Yes Notes (Text): 05/01/18 17:20 Attending note; Patient seen and examined with resident. Patient is a 22-year-old Male with PMH of recurrent right groin abscess is admitted with pain and swelling in the right groin area. right inguinal area abscess. Surgery evaluation appreciated. s/p incision and drainage. Packing done by surgery today. Patient is afebrile and nontoxic. Pain improved significantly. Treated with IV vancomycin, Zosyn and doxycycline . ID evaluation r appreciated. Pending wound cultures. Patient will be discharged home with Augmentin and doxycycline. Prescription given. Noncompliance with medical treatment and follow-up. [place] [facility]
--- NOTE | 2018-05-02 01:22 | CON ---
DATE: 05/01/2018 HISTORY OF PRESENT ILLNESS: The patient is seen earlier. A 22-year-old male with no history of diabetes or hypertension, who is admitted with a right groin wound infection that has been progressively getting worse the last few days. He denies any fevers, any chills, any nausea or any vomiting. PAST MEDICAL HISTORY: No significant past medical history. PAST SURGICAL HISTORY: No surgical history. Did have an incision I and D of an abscess in 2017. ALLERGIES: THE PATIENT HAS NO KNOWN ALLERGIES. MEDICATIONS AT HOME: He takes no medications at home. 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 He does not use drugs. Last travel was to [place] many years ago. PHYSICAL EXAMINATION: VITAL SIGNS: Temperature is 97, blood pressure is 116/50, respiratory rate of 20, heart rate of 56. HEENT: Examination of HEENT is unremarkable. NECK: Supple. LUNGS: Have decreased breath sounds. HEART: Normal S1 and S2. ABDOMEN: Soft, nontender. No rebound or guarding. GENITOURINARY: Examination of the groin, there is a small incision with packing in it. No evidence of infection. There are no ulcers on his penis. The scrotum is completely normal. LABORATORY DATA: Laboratory examination reveals a white count of 10,000, hemoglobin is 14, platelets of 230. Urinalysis is noted. ASSESSMENT AND PLAN: A 22-year-old with right groin abscess, status post incision and drainage. Should have human immunodeficiency virus test. The patient is to follow up as outpatient with the cultures and treated with doxycycline and Augmentin as outpatient. The remainder of the workup as outpatient. George Laurent MD
== END 2018-05-01 11:50 | disposition home or self-care (01) ==
LOC: ED 06:54 → ERH 10:09 → 5RSO 11:18
PROVIDERS: ADMIT Internal Medicine; ATTEND Internal Medicine
DX: L02.214 Cutaneous abscess of groin (principal); N49.2 Inflammatory disorders of scrotum; F12.90 Cannabis use, unspecified, uncomplicated; Z87.891 Personal history of nicotine dependence; Z91.19 Patient's noncompliance with other medical treatment and regimen
CPT/HCPCS: 36415; 55100; 80053; 80324; 80345; 80346; 80349; 80353; 80358; 80361; 81003; 82803; 83735; 83992; 84100; 85025; 85610; 85651; 85730; 86850; 86900; 87070; 87389; 96374; 99284; G0378; J1885; J2270; J2543; J7030

== ENCOUNTER 2018-08-10 20:30 | Observation (INO) | payer OTHER ==
[2018-08-10 20:31] VITALS: BMI 31.6
[2018-08-10] MEDS ORDERED: Piperacillin/Tazobact 3.375 gm 100 ML IV STA ×2 (21:07→21:08)
[2018-08-10 21:18] LABS: HEMOGLOBIN 14.9 g/dL (14.0-18.0); MEAN CELL VOLUME 86.4 fl (80.0-105.0); MEAN CORPUSCULAR HEMOGLOBIN 28.9 pg (25.0-35.0); MEAN CORPUSCULAR HGB CONC 33.4 g/dl (31.0-37.0); MEAN PLATELET VOLUME 11.1 fl (7.0-11.0); RBC 5.16 10^6/uL (3.5-6.1); RED CELL DISTRIBUTION WIDTH 13.4 % (11.5-14.5); WHITE BLOOD COUNT 10.7 10^3/uL (4.5-11.0)
[2018-08-10 21:33] LABS: ALB/GLOB RATIO 1.6 (1.1-1.8); ALBUMIN 4.2 g/dL (3.0-4.8); ALT/SGPT 29 U/L (7-56); AST/SGOT 23 U/L (17-59); BLOOD UREA NITROGEN 11 mg/dL (7-21); CALCIUM 9.2 mg/dL (8.4-10.5); GFR NON-AFRICAN AMERICAN > 60
--- NOTE | 2018-08-10 21:42 | ED PDOC ---
Arrival/HPI - General Chief Complaint: Male Genitourinary Time Seen by Provider: 08/10/18 20:36 Historian: Patient - History of Present Illness Narrative History of Present Illness (Text): 08/10/18 21:00 Manuel Cortes is a 22 year old male, whose past medical history includes scrotal cellulitis/abscess, who presents to the Emergency department complaining of recurrent skin infection to the left scrotal/groin area, which has developed over the past week. Patient states he has a history of recurrent abscess to the area, requiring hospital admission for IV antibiotics and surgical treatment. Patient noted a foul-smelling discharge from he area. Patient denies any fever, chills, numbness, or any other complaints. Symptom Onset: Gradual Symptom Course: Unchanged Activities at Onset: Light Context: Home Past Medical History - Provider Review Nursing Documentation Reviewed: Yes - Infectious Disease Hx of Infectious Diseases: None - Cardiac Hx Cardiac Disorders: No - Pulmonary Hx Respiratory Disorders: No - Neurological Hx Neurological Disorder: No - HEENT Hx HEENT Disorder: No - Renal Hx Renal Disorder: No - Endocrine/Metabolic Hx Endocrine Disorders: No - Hematological/Oncological Hx Blood Disorders: No - Integumentary Hx Dermatological Disorder: Yes Other/Comment: SKIN ABSCESS - Musculoskeletal/Rheumatological Hx Musculoskeletal Disorders: No Hx Falls: No - Gastrointestinal Hx Gastrointestinal Disorders: No - Genitourinary/Gynecological Hx Genitourinary Disorders: Yes Other/Comment: SCROTAL EDEMA, RT SIDED REDNESS TO TESTICLES - Psychiatric Hx Psychophysiologic Disorder: No Hx Substance Use: Yes (weed) - Anesthesia Hx Anesthesia: No Hx Anesthesia Reactions: No Hx Malignant Hyperthermia: No Family/Social History - Physician Review Nursing Documentation Reviewed: Yes Family/Social History: Unknown Family HX Smoking Status: Light Smoker < 10 Cigarettes Daily Hx Alcohol Use: No (SOCIAL) Hx Substance Use: Yes (weed) Substance used: daily Allergies/Home Meds Allergies/Adverse Reactions: Allergies No Known Allergies Allergy (Verified 04/30/18 11:38) Review of Systems - Physician Review All systems were reviewed & negative as marked: Yes - Review of Systems Constitutional: Normal. absent: Fevers Eyes: Normal ENT: Normal Respiratory: Normal. absent: SOB, Cough Cardiovascular: Normal. absent: Chest Pain Gastrointestinal: Normal. absent: Abdominal Pain, Diarrhea, Nausea, Vomiting Genitourinary Male: Other (+left scrotal/groin redness). absent: Dysuria, Frequency, Hematuria, Urinary Output Changes Musculoskeletal: Normal Skin: Normal Neurological: Normal Endocrine: Normal Hemo/Lymphatic: Normal Psychiatric: Normal Physical Exam Vital Signs Reviewed: Yes Vital Signs Temp Pulse Resp BP Pulse Ox 08/10/18 20:31 98.9 F 70 18 145/71 98 Temperature: Afebrile Blood Pressure: Normal Pulse: Regular Respiratory Rate: Normal Appearance: Positive for: Well-Appearing, Non-Toxic, Comfortable Pain Distress: None Mental Status: Positive for: Alert and Oriented X 3 - Systems Exam Head: Present: Atraumatic, Normocephalic Pupils: Present: PERRL Extroacular Muscles: Present: EOMI Conjunctiva: Present: Normal Mouth: Present: Moist Mucous Membranes Neck: Present: Normal Range of Motion Respiratory/Chest: Present: Clear to Auscultation, Good Air Exchange. No: Respiratory Distress, Accessory Muscle Use Cardiovascular: Present: Regular Rate and Rhythm, Normal S1, S2. No: Murmurs Abdomen: No: Tenderness, Distention, Peritoneal Signs Genitourinary Male: Present: Normal External Genitalia (Testes descended bilaterally), Erythema (Area of raised skin redness/swelling/induration to the left scrotal/groin area with palpable tenderness, no apparent discharge), Other (Faint malodor, no crepitus, no evidence of Yesenia's gangrene). No: Penile Discharge, Testicle Tenderness, Testicle Swelling Back: Present: Normal Inspection. No: CVA Tenderness, Midline Tenderness, Paraspinal Tenderness Upper Extremity: Present: Normal Inspection. No: Cyanosis, Edema Lower Extremity: Present: Normal Inspection. No: Edema Neurological: Present: GCS=15, CN II-XII Intact, Speech Normal Skin: Present: Warm, Dry, Normal Color. No: Rashes Lymphatic: No: Inguinal Adenopathy Psychiatric: Present: Alert, Oriented x 3, Normal Insight, Normal Concentration Medical Decision Making ED Course and Treatment: 08/10/18 21:00 Impression: 22 year old male complaining of recurrent skin infection to the left-sided scrotal/groin area. Plan: -- Labs, blood culture -- Urine drug screen -- Zosyn -- Percocet -- Reassess and disposition Prior Visits: Notes and results from previous visits were reviewed. Progress Notes: 08/10/18 21:42 Case discussed with medical esthetician operations vocational instructor, who is aware and agrees with plan. Case discussed with Dr. Espinosa, who is aware and agrees with plan. Accepts pt in to hospitalist service. Pt will go to [facility] observation for cellulitis and scrotal abscess. - Lab Interpretations Lab Results: Total Bilirubin 0.3 mg/dL (0.2-1.3) 08/10/18 21:10 AST 23 U/L (17-59) 08/10/18 21:10 ALT 29 U/L (7-56) 08/10/18 21:10 Alkaline Phosphatase 96 U/L (38-126) 08/10/18 21:10 Total Protein 6.9 g/dL (5.8-8.3) 08/10/18 21:10 Albumin 4.2 g/dL (3.0-4.8) 08/10/18 21:10 Globulin 2.7 gm/dL 08/10/18 21:10 Albumin/Globulin Ratio 1.6 (1.1-1.8) 08/10/18 21:10 I have reviewed the lab results: Yes - Medication Orders Current Medication Orders: Discontinued Medications Piperacillin Sod/Tazobactam Sod (Zosyn 3.375 In Ns 100ml) 100 mls @ 200 mls/hr IV STAT STA; Protocol Stop: 08/10/18 21:36 Disposition/Present on Arrival - Present on Arrival Any Indicators Present on Arrival: No History of DVT/PE: No History of Uncontrolled Diabetes: No Urinary Catheter: No History of Decub. Ulcer: No History Surgical Site Infection Following: None - Disposition Have Diagnosis and Disposition been Completed?: Yes Diagnosis: Cellulitis of scrotum, Scrotal abscess Disposition: HOSPITALIZED Disposition Time: 21:45 Patient Problems: Current Active Problems Problem Status Onset Cellulitis of scrotum Acute Scrotal abscess Acute Condition: STABLE
[2018-08-10] MEDS ORDERED: Oxycodone/Acetaminophen 5/325 mg Tab PO STA (21:45)
--- NOTE | 2018-08-10 21:53 | CP.PCM.HP ---
<Cain Tello - Last Filed: 08/11/18 00:37> History of Present Illness - History of Present Illness History of Present Illness: PGY-1 Medicine H&P for Dr. Espinosa CC: Left groin cellulitis HPI: Patient is a 22 year old male with past medical history of recurrent groin cellulitis/abscess who presents to the [facility] [facility] presenting with left groin cellulitis. Patient states that the pain started 2 days ago and is worsening. He describes the pain to be sharp, 10/10 in severity, and denies radiation of the pain to his scrotum. Patient also noticed a foul-smelling odor coming from the area. He has had multiple hospitalizations last year for similar symptoms requiring IV antibiotics and surgical treatments. His last admission was on 04/30/2018 for right groin abscess. He admits to finished his course of antibiotics but did not follow up with surgery or the clinic. Patient denies fevers, chills, cough, SOB, chest pain, abdominal pain, nausea, vomiting, diarrhea, or urinary symptoms. 12 system ROS reviewed and negative otherwise mentioned in HPI. PMHx: recurrent groin abscess PSHx: Multiple groin I&D's Social Hx: Smokes marijuana daily, drinks alcohol socially, smokes about 10 cigarettes daily. 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 Sexual Hx: Sexually active with females. Denies history of STD's. Family Hx: Parents have DM-2 and HTN Allergies: NKDA Medications: denies PMD: none Present on Admission - Present on Admission Any Indicators Present on Admission: No History of DVT/PE: No History of Uncontrolled Diabetes: No Urinary Catheter: No Decubitus Ulcer Present: No Review of Systems - Review of Systems All systems: reviewed and no additional remarkable complaints except Past Patient History - Infectious Disease Hx of Infectious Diseases: None - Past Social History Smoking Status: Light Smoker < 10 Cigarettes Daily - CARDIAC Hx Cardiac Disorders: No - PULMONARY Hx Respiratory Disorders: No - NEUROLOGICAL Hx Neurological Disorder: No - HEENT Hx HEENT Problems: No - RENAL Hx Chronic Kidney Disease: No - ENDOCRINE/METABOLIC Hx Endocrine Disorders: No - HEMATOLOGICAL/ONCOLOGICAL Hx Blood Disorders: No - INTEGUMENTARY Hx Dermatological Problems: Yes Other/Comment: SKIN ABSCESS - MUSCULOSKELETAL/RHEUMATOLOGICAL Hx Musculoskeletal Disorders: No Hx Falls: No - GASTROINTESTINAL Hx Gastrointestinal Disorders: No - GENITOURINARY/GYNECOLOGICAL Hx Genitourinary Disorders: Yes Other/Comment: SCROTAL EDEMA, RT SIDED REDNESS TO TESTICLES - PSYCHIATRIC Hx Psychophysiologic Disorder: No Hx Substance Use: Yes (weed) - SURGICAL HISTORY Hx Surgeries: Yes (i&d 02/2017) - ANESTHESIA Hx Anesthesia: No Hx Anesthesia Reactions: No Hx Malignant Hyperthermia: No Meds Allergies/Adverse Reactions: Allergies Allergy/AdvReac Type Severity Reaction Status Date / Time No Known Allergies Allergy Verified 04/30/18 11:38 Physical Exam - Additional Findings Additional findings: - Constitutional Appears: Well, Non-toxic, No Acute Distress - Head Exam Head Exam: ATRAUMATIC, NORMOCEPHALIC - Eye Exam Eye Exam: Normal appearance - ENT Exam ENT Exam: Mucous Membranes Moist - Respiratory Exam Respiratory Exam: NORMAL BREATHING PATTERN. absent: Respiratory Distress - Cardiovascular Exam Cardiovascular Exam: RRR. absent: Tachycardia - GI/Abdominal Exam GI & Abdominal Exam: Soft. absent: Distended, Guarding, Tenderness - Exam Exam: absent: Circumcision, Scrotal Swelling, Testicular Tenderness, Uretheral Discharge External exam: 2 cm x 3 cm indurated area in the right groin with no erythema. Area is very tender to palpation but shows no signs of necrosis, crepitus, or tissue breakdown - Extremities Exam Extremities exam: Positive for: normal inspection - Neurological Exam Neurological exam: Alert, Oriented x3 - Psychiatric Exam Psychiatric exam: Normal Affect, Normal Mood - Skin Skin Exam: Dry, Intact, Normal Color, Warm Results - Vital Signs Recent Vital Signs: Last Vital Signs Temp 98.9 F 08/10/18 20:31 Pulse 70 08/10/18 20:31 Resp 18 08/10/18 20:31 BP 145/71 08/10/18 20:31 Pulse Ox 98 08/10/18 20:31 - Labs Result Diagrams: 08/10/18 21:10 08/10/18 21:10 Labs: Laboratory Results - last 24 hr 08/10/18 08/10/18 21:10 21:10 WBC 10.7 RBC 5.16 Hgb 14.9 Hct 44.6 MCV 86.4 MCH 28.9 MCHC 33.4 RDW 13.4 Plt Count 220 MPV 11.1 H Sodium 140 Potassium 4.0 Chloride 107 Carbon Dioxide 25 Anion Gap 12 BUN 11 Creatinine 0.7 L Est GFR ( Amer) > 60 Est GFR (Non-Af Amer) > 60 Random Glucose 99 Calcium 9.2 Total Bilirubin 0.3 AST 23 ALT 29 Alkaline Phosphatase 96 Total Protein 6.9 Albumin 4.2 Globulin 2.7 Albumin/Globulin Ratio 1.6 Assessment & Plan - Assessment and Plan (Free Text) Assessment: Patient is a 22 year old male with recurrent groin abscesses presenting with left groin cellulitis. Plan: Left groin cellulitis - Testicular ultrasound: pending - CT Pelvis with contrast: pending - Vancomycin 1g IV Q12 (Started on 08/10) - Zosyn 3.375g IV Q8 (Started on 08/10) - Surgery consulted, Dr. Taylor - ID consulted, Dr. Connolly - Morphine 1mg Q4 PRN - Nystatin powder - NPO - NS @ 100 mls/hr Prophylaxis: - DVT: Heparin 5000 SC Q8 Case discussed with attending physician Dr. Jesús Tello, PGY-1 <Nikos Espinosa - Last Filed: 08/11/18 06:38> Results - Vital Signs Recent Vital Signs: Last Vital Signs Temp 97.7 F 08/11/18 01:07 Pulse 56 L 08/11/18 01:07 Resp 18 08/11/18 01:07 BP 97/68 L 08/11/18 01:07 Pulse Ox 96 08/11/18 01:07 - Labs Result Diagrams: 08/10/18 21:10 08/10/18 21:10 Labs: Laboratory Results - last 24 hr 08/10/18 08/10/18 21:10 21:10 WBC 10.7 RBC 5.16 Hgb 14.9 Hct 44.6 MCV 86.4 MCH 28.9 MCHC 33.4 RDW 13.4 Plt Count 220 MPV 11.1 H Sodium 140 Potassium 4.0 Chloride 107 Carbon Dioxide 25 Anion Gap 12 BUN 11 Creatinine 0.7 L Est GFR ( Amer) > 60 Est GFR (Non-Af Amer) > 60 Random Glucose 99 Calcium 9.2 Total Bilirubin 0.3 AST 23 ALT 29 Alkaline Phosphatase 96 Total Protein 6.9 Albumin 4.2 Globulin 2.7 Albumin/Globulin Ratio 1.6 Attending/Attestation - Attestation I have personally seen and examined this patient.: Yes I have fully participated in the care of the patient.: Yes I have reviewed all pertinent clinical information: Yes
[2018-08-10] MEDS ORDERED: Morphine 2 mg/ml ISec IVP STA (22:22)
[2018-08-10] MEDS ORDERED: Iohexol 350 MG/100 ML VIAL ONE (23:14)
[2018-08-10] MEDS ORDERED: Morphine 2 mg/ml ISec IM PRN (23:24)
[2018-08-10] MEDS ORDERED: Sodium Chloride 0.45% 1,000 ML IV SCH (23:30)
[2018-08-10] MEDS ORDERED: Vancomycin 500 mg Inj IVPB SCH (23:30)
[2018-08-10] MEDS: Vancomycin 1gm in NS 250ml 1 GM/250 ML BAG IVPB SCH (23:57)
[2018-08-11] MEDS: Morphine 2 mg/ml ISec IVP PRN ×5 (02:15→21:09)
[2018-08-11] MEDS ORDERED: Piperacillin/Tazobact 3.375 gm 100 ML IVPB SCH (06:00)
--- NOTE | 2018-08-11 06:02 | CP.PCM.CON ---
History of Present Illness - History of Present Illness History of Present Illness: Surgery Consult Note- Dr. Taylor Reason for Consult: Groin Abscess 22M pmhx significant for recurrent groin cellulitis/abscesses, presents to the [facility] [place] ED w/ left groin pain ranked 10/10 that started 2 days ago. Patient also noticed a foul-smelling odor coming from the area. Of note, multiple hospitalizations last year for similar symptoms requiring IV antibiotics and surgical treatments. Denies fevers, chills, cough, SOB, chest pain, abdominal pain, nausea, vomiting, diarrhea, or urinary symptoms. 12 system ROS reviewed and negative otherwise stated above PMH: recurrent groin abscess PSH: Multiple groin I&D's ALL: NKDA SocialHx: Smokes marijuana daily, drinks alcohol socially, smokes about 10 cigarettes daily. 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 FH: Parents have DM-2 and HTN PMD: none Review of Systems - Review of Systems All systems: reviewed and no additional remarkable complaints except - Constitutional Constitutional: As Per HPI Past Patient History - Infectious Disease Hx of Infectious Diseases: None - Past Social History Smoking Status: Heavy Smoker > 10 Cigarettes Daily - CARDIAC Hx Cardiac Disorders: No - PULMONARY Hx Respiratory Disorders: Yes Hx Asthma: Yes - NEUROLOGICAL Hx Neurological Disorder: No - HEENT Hx HEENT Problems: No - RENAL Hx Chronic Kidney Disease: No - ENDOCRINE/METABOLIC Hx Endocrine Disorders: No - HEMATOLOGICAL/ONCOLOGICAL Hx Blood Disorders: No - INTEGUMENTARY Hx Dermatological Problems: Yes Other/Comment: left scrotal abscess - MUSCULOSKELETAL/RHEUMATOLOGICAL Hx Musculoskeletal Disorders: No Hx Falls: No - GASTROINTESTINAL Hx Gastrointestinal Disorders: No - GENITOURINARY/GYNECOLOGICAL Hx Genitourinary Disorders: Yes (left scrotal abscess with I&D) - PSYCHIATRIC Hx Psychophysiologic Disorder: No Hx Substance Use: Yes (marijuana) - SURGICAL HISTORY Hx Surgeries: Yes (i&d scrotal abscess) - ANESTHESIA Hx Anesthesia: No Hx Anesthesia Reactions: No Hx Malignant Hyperthermia: No Meds Allergies/Adverse Reactions: Allergies Allergy/AdvReac Type Severity Reaction Status Date / Time No Known Allergies Allergy Verified 04/30/18 11:38 - Medications Medications: Current Medications Heparin Sodium (Porcine) (Heparin) 5,000 units SC Q8 [facility]; Protocol Last Admin: 08/11/18 05:04 Dose: Not Given Piperacillin Sod/Tazobactam Sod (Zosyn 3.375 In Ns 100ml) 100 mls @ 25 mls/hr IVPB Q8 [facility]; Protocol Stop: 08/11/18 17:59 Last Admin: 08/11/18 05:05 Dose: 25 mls/hr Sodium Chloride (Sodium Chloride 0.45%) 1,000 mls @ 100 mls/hr IV .Q10H [facility] Vancomycin HCl (Vancomycin 1gm) 1 gm in 250 mls @ 167 mls/hr IVPB Q12H [facility] Last Admin: 08/10/18 23:57 Dose: 167 mls/hr Morphine Sulfate (Morphine) 1 mg IVP Q4H PRN PRN Reason: Pain, moderate (4-7) Last Admin: 08/11/18 02:15 Dose: 1 mg Nicotine (Nicoderm Cq) 1 patch TD DAILY [facility] Nystatin (Nystop Topical Powder) 0 gm TOP QID [facility] Physical Exam - Constitutional Appears: Non-toxic, No Acute Distress - Head Exam Head Exam: ATRAUMATIC - Eye Exam Eye Exam: EOMI. absent: Scleral icterus - ENT Exam ENT Exam: Mucous Membranes Moist - Respiratory Exam Respiratory Exam: NORMAL BREATHING PATTERN. absent: Accessory Muscle Use, Respiratory Distress - Cardiovascular Exam Cardiovascular Exam: REGULAR RHYTHM. absent: Bradycardia, Tachycardia - GI/Abdominal Exam GI & Abdominal Exam: Soft. absent: Distended, Firm, Guarding, Hernia, Normal Bowel Sounds - Exam Additional comments: Left sided scrotal swelling no areas of fluctuance. Mildly tender. - Extremities Exam Extremities exam: Negative for: calf tenderness - Neurological Exam Neurological exam: Alert, Oriented x3 - Skin Skin Exam: Intact, Warm Results - Vital Signs Recent Vital Signs: Last Vital Signs Temp 97.7 F 08/11/18 01:07 Pulse 56 L 08/11/18 01:07 Resp 18 08/11/18 01:07 BP 97/68 L 08/11/18 01:07 Pulse Ox 96 08/11/18 01:07 - Labs Result Diagrams: 08/10/18 21:10 08/10/18 21:10 Labs: Laboratory Results - last 24 hr 08/10/18 08/10/18 21:10 21:10 WBC 10.7 RBC 5.16 Hgb 14.9 Hct 44.6 MCV 86.4 MCH 28.9 MCHC 33.4 RDW 13.4 Plt Count 220 MPV 11.1 H Sodium 140 Potassium 4.0 Chloride 107 Carbon Dioxide 25 Anion Gap 12 BUN 11 Creatinine 0.7 L Est GFR ( Amer) > 60 Est GFR (Non-Af Amer) > 60 Random Glucose 99 Calcium 9.2 Total Bilirubin 0.3 AST 23 ALT 29 Alkaline Phosphatase 96 Total Protein 6.9 Albumin 4.2 Globulin 2.7 Albumin/Globulin Ratio 1.6 Assessment & Plan - Assessment and Plan (Free Text) Assessment: 22M w/ cellultic changes over left groin/scrotum No drainable areas at this time Plan: - warm compresses - abx - keep area dry - continued management per primary team - no acute surgical intervention at this time - further recs [facility] Dr[facility]
[2018-08-11 07:21] LABS: BARBITURATES, UR NEGATIVE (NEGATIVE); BENZODIAZEPINES, UR NEGATIVE (NEGATIVE); OPIATES, UR POSITIVE (NEGATIVE); PHENCYCLIDINE, UR NEGATIVE (NEGATIVE)
[2018-08-11 08:10] LABS: BASO # 0.05 K/mm3 (0.0-2.0); BASO % 0.5 % (0.0-3.0); EOS # 0.3 (0.0-0.7); EOS % 2.6 % (1.5-5.0); GRAN # 6.16 (1.4-6.5); GRAN % 61.9 % (50.0-68.0); HEMOGLOBIN 14.2 g/dL (14.0-18.0); LYMPH # 2.9 (1.2-3.4); LYMPH % 28.9 % (22.0-35.0); MEAN CELL VOLUME 86.7 fl (80.0-105.0); MEAN CORPUSCULAR HEMOGLOBIN 28.7 pg (25.0-35.0); MEAN CORPUSCULAR HGB CONC 33.1 g/dl (31.0-37.0); MEAN PLATELET VOLUME 11.1 fl (7.0-11.0); MONO # 0.6 (0.1-0.6); MONO % 6.1 % (1.0-6.0); RBC 4.95 10^6/uL (3.5-6.1); RED CELL DISTRIBUTION WIDTH 13.6 % (11.5-14.5)
[2018-08-11 08:29] LABS: ALB/GLOB RATIO 1.6 (1.1-1.8); ALT/SGPT 25 U/L (7-56); AST/SGOT 19 U/L (17-59); BLOOD UREA NITROGEN 7 mg/dL (7-21); GFR NON-AFRICAN AMERICAN > 60
[2018-08-11] MEDS: Nystatin 100,000 Units/gm Topical Pow(15 gm) TOP SCH ×4 (09:00→21:50)
--- NOTE | 2018-08-11 10:42 | US ---
Date of service: 08/11/2018 HISTORY: Unilateral, left-sided pain. Torsion suspected TECHNIQUE: Realtime sonography through the scrotum with color and doppler flow. COMPARISON: 04/21/2018 testicular ultrasound FINDINGS: RIGHT TESTICLE: Measures 2.7 x 4.1 x 5.7 cm. Normal echotexture and flow. RIGHT EPIDIDYMIS: Epididymal head measures 0.7 x 1.2 x 1.2 cm. Grossly unremarkable appearance with normal flow. LEFT TESTICLE: Measures 2.7 x 4.3 x 5.5 cm. Normal echotexture and flow. LEFT EPIDIDYMIS: Epididymal head measures 0.7 x 1.0 x 1.3 cm. Grossly unremarkable appearance with normal flow. HYDROCELE: Small, bilaterally symmetrical perhaps physiological. VARICOCELE: None. OTHER FINDINGS: Soft tissue mass interposed between left testicle and the scrotal sac corresponds to finding on physical examination. This measures 1.5 x 2.9 x 5.5 cm. A similar, smaller finding identified adjacent to the right testicle on the prior study. IMPRESSION: Mass in the scrotal contents which appears to be separate from the left testicle corresponding to findings on physical examination. Differential considerations include those related to trauma possibly hemorrhagic process. Infectious/inflammatory etiology should also be considered. Negative study for torsion, epididymitis, orchitis or mass. Concordant findings (preliminary report) provided by [employer].
[2018-08-11] MEDS: Vancomycin 1gm in NS 250ml 1 GM/250 ML BAG IVPB SCH ×2 (11:30→23:29)
--- NOTE | 2018-08-11 12:04 | CT ---
Date of service: 08/10/2018 PROCEDURE: CT Pelvis with contrast HISTORY: abscess COMPARISON: 04/21/2018 CT abdomen and pelvis. Summary of findings on the comparison examination: Re demonstrated is a small elliptical shaped 3.6 x 1.4 x 1.1 cm subcutaneous density-subjacent skin surface right inguinal region 08/11/2018 Summary of findings on the comparison examination: left scrotal mass TECHNIQUE: Contiguous axial images of the pelvis with contrast. Coronal and sagittal reformats generated. Contrast dose: 100 cc Omnipaque 350 Radiation dose: Total exam DLP = 833.82 mGy-cm. This CT exam was performed using one or more of the following dose reduction techniques: Automated exposure control, adjustment of the mA and/or kV according to patient size, and/or use of iterative reconstruction technique. FINDINGS: BLADDER: Unremarkable. No mass. REPRODUCTIVE ORGANS: Confirmation of mass interposed between the scrotum and left testicle. The mass is elliptical, ovoid measuring 2.3 x 4.9 cm. Associated inflammatory changes noted. Small right hydrocele. VISUALIZED BOWEL: Unremarkable. PERITONEUM: Unremarkable, as visualized. No free fluid. No free air. LYMPH NODES: Unremarkable. No enlarged lymph nodes. VASCULATURE: No aortic atherosclerotic calcification or mural plaque present. BONES: No fracture or focal lesion. OTHER FINDINGS: None. IMPRESSION: Hemiscrotal, left inflammatory changes confirming findings on recent ultrasound. The findings appear to be more likely infectious/inflammatory than the sequela of trauma (hematoma). Concordant results (preliminary interpretation) provided by [employer]. Procedure Completed: 23:26 Preliminary Report: Dictated and Authenticated: 00:28 Final Interpretation: 12:01. August 11, 2018
--- NOTE | 2018-08-11 13:54 | CP.PCM.PN ---
<River Arriaga - Last Filed: 08/11/18 19:27> Subjective - Date & Time of Evaluation Date of Evaluation: 08/11/18 Time of Evaluation: 08:00 - Subjective Subjective: River Arriaga, PGY1 Medicine Progress Note for Dr. Bonilla Patient was seen and examined at bedside this morning. Patient's vital signs are stable. No adverse overnight events. He still has mod-severe left groin pain. No other complaints. Denies cp, sob, fever, chills, n/v/d, numbness and tingling of extremities. Patient clarified that 1 year ago he had an I&D for a right groin abscess and has had numerous admissions of pain in the groin since then. A full 12 point ROS was conducted and unremarkable except as stated above. Objective - Vital Signs/Intake and Output Vital Signs (last 24 hours): Temp Pulse Resp BP Pulse Ox 97.8 F 68 20 111/69 99 08/11/18 08:05 08/11/18 08:05 08/11/18 08:05 08/11/18 08:05 08/11/18 08:05 Intake and Output: 08/11/18 08/11/18 06:59 18:59 Intake Total 240 Output Total 700 Balance -460 - Medications Medications: Current Medications Heparin Sodium (Porcine) (Heparin) 5,000 units SC Q8 [facility]; Protocol Last Admin: 08/11/18 05:04 Dose: Not Given Vancomycin HCl (Vancomycin 1gm) 1 gm in 250 mls @ 167 mls/hr IVPB Q12H [facility] Last Admin: 08/10/18 23:57 Dose: 167 mls/hr Morphine Sulfate (Morphine) 1 mg IVP Q4H PRN PRN Reason: Pain, moderate (4-7) Last Admin: 08/11/18 10:09 Dose: 1 mg Nicotine (Nicoderm Cq) 1 patch TD DAILY [facility] Last Admin: 08/11/18 10:10 Dose: 1 patch Nystatin (Nystop Topical Powder) 0 gm TOP QID [facility] - Labs Labs: 08/11/18 08:00 08/11/18 08:00 - Constitutional Appears: No Acute Distress - Head Exam Head Exam: ATRAUMATIC, NORMAL INSPECTION, NORMOCEPHALIC - Eye Exam Eye Exam: EOMI, Normal appearance - ENT Exam ENT Exam: Mucous Membranes Moist - Respiratory Exam Respiratory Exam: Clear to Ausculation Bilateral. absent: Chest Wall Tenderness, Rales, Rhonchi, Wheezes, Respiratory Distress - Cardiovascular Exam Cardiovascular Exam: RRR, +S1, +S2 - GI/Abdominal Exam GI & Abdominal Exam: Soft, Normal Bowel Sounds. absent: Distended, Guarding, Rigid, Tenderness, Organomegaly, Pulsatile Mass, Rebound - Exam Additional comments: Severe left groin tenderness to palpation. No pain on palpation of the penis or scrotum. Mildly swollen left groin with induration. No fluctuating masses or signs of drainage noted. - Extremities Exam Extremities Exam: Full ROM, Normal Capillary Refill, Normal Inspection - Back Exam Back Exam: NORMAL INSPECTION - Neurological Exam Neurological Exam: Alert, Awake, Normal Gait, Oriented x3 - Psychiatric Exam Psychiatric exam: Normal Affect, Normal Mood - Skin Skin Exam: Dry, Intact, Normal Color, Warm Assessment and Plan - Assessment and Plan (Free Text) Assessment: Patient is a 22 y/o M with PMHx groin abscess who presented to [facility] [place] with left groin pain. Patient admitted to the floor for management of left groin/scrotal cellulitis. Plan: Left groin/scrotum cellulitis with Hx of previous groin abscess - CT Pelvis (08/10): left sandy-scrotal inflammatory changes, likely infectious/inflammatory etiology. Left scrotal mass is 2.3 x 4.9 cm. - Testicular ultrasound (08/10): negative for testicular torsion; hematoma versus infectious etiology - Surgery consulted. Recs appreciated. No surgical intervention at this time. - c/w Vancomycin 1g IV Q12 - c/w nystatin powder to groin area - c/w morphine 1 mg q4 prn for pain control - c/w warm compress - ID is on consult. Will f/u ID recs. - Afebrile with no leukocytosis - Regular diet - Hx of previous right groin abscess with I&D 1 year ago DVT ppx: Heparin 5000 SC Q8 Diet: Regular Dispo: will monitor patient on the floor. Will follow up antibiotic recommendations as per ID. Case was discussed and reviewed with Attending Physician, Dr. Bonilla <Yordy Bonilla - Last Filed: 08/12/18 06:57> Objective - Vital Signs/Intake and Output Vital Signs (last 24 hours): Temp Pulse Resp BP Pulse Ox 97.9 F 65 20 128/83 98 08/12/18 04:21 08/12/18 04:21 08/12/18 04:21 08/12/18 04:21 08/12/18 04:21 Intake and Output: 08/11/18 08/12/18 18:59 06:59 Intake Total 1740 Output Total 600 Balance 1140 - Medications Medications: Current Medications Heparin Sodium (Porcine) (Heparin) 5,000 units SC Q8 [facility]; Protocol Last Admin: 08/12/18 05:55 Dose: 5,000 units Vancomycin HCl (Vancomycin 1gm) 1 gm in 250 mls @ 167 mls/hr IVPB Q12H [facility] Last Admin: 08/11/18 23:29 Dose: 167 mls/hr Morphine Sulfate (Morphine) 1 mg IVP Q4H PRN PRN Reason: Pain, moderate (4-7) Last Admin: 08/12/18 01:53 Dose: 1 mg Nicotine (Nicoderm Cq) 1 patch TD DAILY [facility] Last Admin: 08/11/18 10:10 Dose: 1 patch Nystatin (Nystop Topical Powder) 0 gm TOP QID [facility] Last Admin: 08/11/18 21:50 Dose: 1 applic - Labs Labs: 08/11/18 08:00 08/11/18 08:00 Attending/Attestation - Attestation I have personally seen and examined this patient.: Yes I have fully participated in the care of the patient.: Yes I have reviewed all pertinent clinical information, including history, physical exam and plan: Yes Notes (Text): 08/11/18 22 year old male with past medical history of groin abscess who presented with complaint of left groin pain. He is being treated for scrotal cellulitis and left groin pain. CT pelvis showed left sandy-scrotal inflammatory changes, likely infection/inflammatory etiology. Testicular ultrasound showed soft tissue mass, possible hemorrhagic process vs infectious etiology. ID and jos owen are following the patient; recommended conservative management with iv antibiotics and warm compress. Yordy Bonilla MD Hospitalist.
--- NOTE | 2018-08-11 14:27 | CP.PCM.CON ---
<Zcahary Carey - Last Filed: 08/11/18 14:22> History of Present Illness - History of Present Illness History of Present Illness: Infectious disease consult note: 22 M with PMHx of recurrent groin cellulitis/abscess, orchitis who presents to the [facility] ED presenting with left groin cellulitis. Patient states that he first noticed it 2 days ago and the pain as become progressively worse that he had to leave work. He states he had simillar episodes in the past and had I&D x 2. He also states that aprox 1 year ago he went to [facility] for similar episode and was diagnosed with orchitis. Pain is now 10/10 in severity,and non radiating. Patient denies f/c, cough, SOB, chest pain, abdominal pain, nausea, vomiting, diarrhea, or urinary changes. 12 system ROS reviewed and negative other than stated above PMHx: recurrent groin abscess PSHx: Groin I&D's x 2 Social Hx: Smokes marijuana daily, social drinker, smokes about 10cig/ day . 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 Sexual Hx: Sexually active with females, always uses condoms. Denies history of STD's. Family Hx: DM-2 runs in family Allergies: NKDA Review of Systems - Review of Systems All systems: reviewed and no additional remarkable complaints except Past Patient History - Infectious Disease Hx of Infectious Diseases: None - Past Social History Smoking Status: Heavy Smoker > 10 Cigarettes Daily - CARDIAC Hx Cardiac Disorders: No - PULMONARY Hx Respiratory Disorders: Yes Hx Asthma: Yes - NEUROLOGICAL Hx Neurological Disorder: No - HEENT Hx HEENT Problems: No - RENAL Hx Chronic Kidney Disease: No - ENDOCRINE/METABOLIC Hx Endocrine Disorders: No - HEMATOLOGICAL/ONCOLOGICAL Hx Blood Disorders: No - INTEGUMENTARY Hx Dermatological Problems: Yes Other/Comment: left scrotal abscess - MUSCULOSKELETAL/RHEUMATOLOGICAL Hx Musculoskeletal Disorders: No Hx Falls: No - GASTROINTESTINAL Hx Gastrointestinal Disorders: No - GENITOURINARY/GYNECOLOGICAL Hx Genitourinary Disorders: Yes (left scrotal abscess with I&D) - PSYCHIATRIC Hx Psychophysiologic Disorder: No Hx Substance Use: Yes (marijuana) - SURGICAL HISTORY Hx Surgeries: Yes (i&d scrotal abscess) - ANESTHESIA Hx Anesthesia: No Hx Anesthesia Reactions: No Hx Malignant Hyperthermia: No Meds Allergies/Adverse Reactions: Allergies Allergy/AdvReac Type Severity Reaction Status Date / Time No Known Allergies Allergy Verified 04/30/18 11:38 - Medications Medications: Current Medications Heparin Sodium (Porcine) (Heparin) 5,000 units SC Q8 [facility]; Protocol Last Admin: 08/11/18 05:04 Dose: Not Given Vancomycin HCl (Vancomycin 1gm) 1 gm in 250 mls @ 167 mls/hr IVPB Q12H [facility] Last Admin: 08/10/18 23:57 Dose: 167 mls/hr Morphine Sulfate (Morphine) 1 mg IVP Q4H PRN PRN Reason: Pain, moderate (4-7) Last Admin: 08/11/18 10:09 Dose: 1 mg Nicotine (Nicoderm Cq) 1 patch TD DAILY [facility] Last Admin: 08/11/18 10:10 Dose: 1 patch Nystatin (Nystop Topical Powder) 0 gm TOP QID [facility] Physical Exam - Head Exam Head Exam: ATRAUMATIC, NORMOCEPHALIC - Eye Exam Eye Exam: EOMI, PERRL - ENT Exam ENT Exam: Mucous Membranes Moist - Respiratory Exam Respiratory Exam: Clear to Auscultation Bilateral Additional comments: no r/r/w - Cardiovascular Exam Cardiovascular Exam: REGULAR RHYTHM, +S1, +S2 - GI/Abdominal Exam GI & Abdominal Exam: Normal Bowel Sounds, Soft - Extremities Exam Extremities exam: Negative for: calf tenderness, pedal edema - Neurological Exam Neurological exam: Alert, CN II-XII Intact, Oriented x3 - Psychiatric Exam Psychiatric exam: Normal Mood - Skin Skin Exam: Dry, Warm Additional comments: Mild area of erythema of L groin area, tender to touch, non fluctuant Results - Vital Signs Recent Vital Signs: Last Vital Signs Temp 97.8 F 08/11/18 08:05 Pulse 68 08/11/18 08:05 Resp 20 08/11/18 08:05 BP 111/69 08/11/18 08:05 Pulse Ox 99 08/11/18 08:05 - Labs Result Diagrams: 08/11/18 08:00 08/11/18 08:00 Labs: Laboratory Results - last 24 hr 08/10/18 08/10/18 08/11/18 21:10 21:10 06:28 WBC 10.7 RBC 5.16 Hgb 14.9 Hct 44.6 MCV 86.4 MCH 28.9 MCHC 33.4 RDW 13.4 Plt Count 220 MPV 11.1 H Gran % Lymph % (Auto) [place] % (Auto) Eos % (Auto) Baso % (Auto) Gran # Lymph # (Auto) [place] # (Auto) Eos # (Auto) Baso # (Auto) Sodium 140 Potassium 4.0 Chloride 107 Carbon Dioxide 25 Anion Gap 12 BUN 11 Creatinine 0.7 L Est GFR ( Amer) > 60 Est GFR (Non-Af Amer) > 60 Random Glucose 99 Calcium 9.2 Total Bilirubin 0.3 AST 23 ALT 29 Alkaline Phosphatase 96 Total Protein 6.9 Albumin 4.2 Globulin 2.7 Albumin/Globulin Ratio 1.6 Urine Opiates Screen Positive H Urine Methadone Screen Negative Ur Barbiturates Screen Negative Ur Phencyclidine Scrn Negative Ur Amphetamines Screen Negative U Benzodiazepines Scrn Negative U Oth Cocaine Metabols Negative U Cannabinoids Screen Positive H 08/11/18 08/11/18 08:00 08:00 WBC 10.0 RBC 4.95 Hgb 14.2 Hct 42.9 MCV 86.7 MCH 28.7 MCHC 33.1 RDW 13.6 Plt Count 211 MPV 11.1 H Gran % 61.9 Lymph % (Auto) 28.9 Mon[place] % (Auto) 6.1 H Eos % (Auto) 2.6 Baso % (Auto) 0.5 Gran # 6.16 Lymph # (Auto) 2.9 [place] # (Auto) 0.6 Eos # (Auto) 0.3 Baso # (Auto) 0.05 Sodium 141 Potassium 4.3 Chloride 108 H Carbon Dioxide 29 Anion Gap 8 L BUN 7 Creatinine 0.8 Est GFR ( Amer) > 60 Est GFR (Non-Af Amer) > 60 Random Glucose 89 Calcium 9.0 Total Bilirubin 0.6 AST 19 ALT 25 Alkaline Phosphatase 85 Total Protein 6.5 Albumin 4.0 Globulin 2.5 Albumin/Globulin Ratio 1.6 Urine Opiates Screen Urine Methadone Screen Ur Barbiturates Screen Ur Phencyclidine Scrn Ur Amphetamines Screen U Benzodiazepines Scrn U Oth Cocaine Metabols U Cannabinoids Screen Assessment & Plan - Assessment and Plan (Free Text) Assessment: 22 M with PMHx of recurrent groin cellulitis/abscess, orchitis who presents to the [facility] ED presenting with left groin cellulitis. - Cont with Vancomycin - Received zosyn x 1 - STD with G&C, and HIV ordered - CT pelvis showed chronic phlegmon formation - may need further evaluation his symptoms dont improve with abx - F/u septic work up - Cont to monitor Case and plan was reviewed and discussed with Dr Connolly. <Kevin Connolly - Last Filed: 08/11/18 18:04> Meds - Medications Medications: Current Medications Heparin Sodium (Porcine) (Heparin) 5,000 units SC Q8 [facility]; Protocol Last Admin: 08/11/18 15:28 Dose: 5,000 units Vancomycin HCl (Vancomycin 1gm) 1 gm in 250 mls @ 167 mls/hr IVPB Q12H [facility] Last Admin: 08/11/18 11:30 Dose: 167 mls/hr Morphine Sulfate (Morphine) 1 mg IVP Q4H PRN PRN Reason: Pain, moderate (4-7) Last Admin: 08/11/18 14:48 Dose: 1 mg Nicotine (Nicoderm Cq) 1 patch TD DAILY [facility] Last Admin: 08/11/18 10:10 Dose: 1 patch Nystatin (Nystop Topical Powder) 0 gm TOP QID [facility] Last Admin: 08/11/18 15:29 Dose: 1 applic Results - Vital Signs Recent Vital Signs: Last Vital Signs Temp 97.8 F 08/11/18 08:05 Pulse 68 08/11/18 08:05 Resp 20 08/11/18 08:05 BP 111/69 08/11/18 08:05 Pulse Ox 99 08/11/18 08:05 - Labs Result Diagrams: 08/11/18 08:00 08/11/18 08:00 Labs: Laboratory Results - last 24 hr 08/10/18 08/10/18 08/11/18 21:10 21:10 06:28 WBC 10.7 RBC 5.16 Hgb 14.9 Hct 44.6 MCV 86.4 MCH 28.9 MCHC 33.4 RDW 13.4 Plt Count 220 MPV 11.1 H Gran % Lymph % (Auto) [place] % (Auto) Eos % (Auto) Baso % (Auto) Gran # Lymph # (Auto) [place] # (Auto) Eos # (Auto) Baso # (Auto) Sodium 140 Potassium 4.0 Chloride 107 Carbon Dioxide 25 Anion Gap 12 BUN 11 Creatinine 0.7 L Est GFR ( Amer) > 60 Est GFR (Non-Af Amer) > 60 Random Glucose 99 Calcium 9.2 Total Bilirubin 0.3 AST 23 ALT 29 Alkaline Phosphatase 96 Total Protein 6.9 Albumin 4.2 Globulin 2.7 Albumin/Globulin Ratio 1.6 Urine Opiates Screen Positive H Urine Methadone Screen Negative Ur Barbiturates Screen Negative Ur Phencyclidine Scrn Negative Ur Amphetamines Screen Negative U Benzodiazepines Scrn Negative U Oth Cocaine Metabols Negative U Cannabinoids Screen Positive H 08/11/18 08/11/18 08:00 08:00 WBC 10.0 RBC 4.95 Hgb 14.2 Hct 42.9 MCV 86.7 MCH 28.7 MCHC 33.1 RDW 13.6 Plt Count 211 MPV 11.1 H Gran % 61.9 Lymph % (Auto) 28.9 Mon[place] % (Auto) 6.1 H Eos % (Auto) 2.6 Baso % (Auto) 0.5 Gran # 6.16 Lymph # (Auto) 2.9 [place] # (Auto) 0.6 Eos # (Auto) 0.3 Baso # (Auto) 0.05 Sodium 141 Potassium 4.3 Chloride 108 H Carbon Dioxide 29 Anion Gap 8 L BUN 7 Creatinine 0.8 Est GFR ( Amer) > 60 Est GFR (Non-Af Amer) > 60 Random Glucose 89 Calcium 9.0 Total Bilirubin 0.6 AST 19 ALT 25 Alkaline Phosphatase 85 Total Protein 6.5 Albumin 4.0 Globulin 2.5 Albumin/Globulin Ratio 1.6 Urine Opiates Screen Urine Methadone Screen Ur Barbiturates Screen Ur Phencyclidine Scrn Ur Amphetamines Screen U Benzodiazepines Scrn U Oth Cocaine Metabols U Cannabinoids Screen Assessment & Plan - Assessment and Plan (Free Text) Assessment: Infectious diseases Attending Physician Attestation Patient seen and examined, discussed with medical insurance claims specialist. I have reviewed the patient's history of present illness, past medical, social, personal and family histories, pertinent physical exam findings, course so far in this hospital admi ssion, pertinent laboratory and imaging results. I agree with the above findings, assessment and plan. In addition, continue [facility] for this patient with probable groin cellulitis. Follow up CT of the pelvis and will monitor clinically. Check RPR, urine GC, HIV test.
[2018-08-12] MEDS: Morphine 2 mg/ml ISec IVP PRN ×2 (01:53→08:15)
[2018-08-12] MEDS ORDERED: Morphine 2 mg/ml ISec IVP ONE (04:29)
[2018-08-12 06:55] LABS: BASO # 0.05 K/mm3 (0.0-2.0); BASO % 0.5 % (0.0-3.0); EOS # 0.2 (0.0-0.7); EOS % 2.3 % (1.5-5.0); GRAN # 6.82 (1.4-6.5); GRAN % 65.9 % (50.0-68.0); HEMOGLOBIN 14.5 g/dL (14.0-18.0); LYMPH # 2.7 (1.2-3.4); LYMPH % 25.6 % (22.0-35.0); MEAN CELL VOLUME 87.2 fl (80.0-105.0); MEAN CORPUSCULAR HEMOGLOBIN 28.6 pg (25.0-35.0); MEAN CORPUSCULAR HGB CONC 32.8 g/dl (31.0-37.0); MEAN PLATELET VOLUME 11.3 fl (7.0-11.0); MONO # 0.6 (0.1-0.6); MONO % 5.7 % (1.0-6.0); RBC 5.07 10^6/uL (3.5-6.1); RED CELL DISTRIBUTION WIDTH 13.6 % (11.5-14.5); WHITE BLOOD COUNT 10.4 10^3/uL (4.5-11.0)
[2018-08-12 07:51] LABS: ALB/GLOB RATIO 1.4 (1.1-1.8); ALBUMIN 3.8 g/dL (3.0-4.8); ALT/SGPT 21 U/L (7-56); AST/SGOT 20 U/L (17-59); BLOOD UREA NITROGEN 9 mg/dL (7-21); GFR NON-AFRICAN AMERICAN > 60
[2018-08-12 08:11] VITALS: BP 101/60; PULSE 54; RESP 18; TEMP 97.7; O2SAT 99
--- NOTE | 2018-08-12 08:39 | CP.PCM.PN ---
Subjective - Date & Time of Evaluation Date of Evaluation: 08/12/18 Time of Evaluation: 08:36 - Subjective Subjective: Resident Progress Note for Dr. Taylor Patient examined at bedside. Patient states he was unable to sleep overnight due to groin pain. Denies fevers, chills, nausea, vomiting, abdominal pain. Objective - Vital Signs/Intake and Output Vital Signs (last 24 hours): Temp Pulse Resp BP Pulse Ox 97.7 F 54 L 18 101/60 99 08/12/18 08:10 08/12/18 08:10 08/12/18 08:10 08/12/18 08:10 08/12/18 08:10 Intake and Output: 08/12/18 08/12/18 06:59 18:59 Intake Total 1740 Output Total 600 Balance 1140 - Medications Medications: Current Medications Heparin Sodium (Porcine) (Heparin) 5,000 units SC Q8 [facility]; Protocol Last Admin: 08/12/18 05:55 Dose: 5,000 units Vancomycin HCl (Vancomycin 1gm) 1 gm in 250 mls @ 167 mls/hr IVPB Q12H [facility] Last Admin: 08/11/18 23:29 Dose: 167 mls/hr Morphine Sulfate (Morphine) 1 mg IVP Q4H PRN PRN Reason: Pain, moderate (4-7) Last Admin: 08/12/18 08:15 Dose: 1 mg Nicotine (Nicoderm Cq) 1 patch TD DAILY [facility] Last Admin: 08/11/18 10:10 Dose: 1 patch Nystatin (Nystop Topical Powder) 0 gm TOP QID [facility] Last Admin: 08/11/18 21:50 Dose: 1 applic - Labs Labs: 08/12/18 06:00 08/12/18 06:00 - Additional Findings Additional findings: - Constitutional Appears: Non-toxic, No Acute Distress - Head Exam Head Exam: ATRAUMATIC, NORMOCEPHALIC - Eye Exam Eye Exam: EOMI. absent: Scleral icterus - ENT Exam ENT Exam: Mucous Membranes Moist - Respiratory Exam Respiratory Exam: NORMAL BREATHING PATTERN. absent: Accessory Muscle Use, Respiratory Distress - Cardiovascular Exam Cardiovascular Exam: REGULAR RHYTHM. absent: Bradycardia, Tachycardia - GI/Abdominal Exam GI & Abdominal Exam: Soft. absent: Distended, Firm, Guarding, Hernia, Normal Bowel Sounds - Exam Additional comments: left sided scrotal swelling, tenderness no fluctuance/erythema/drainage - Extremities Exam Extremities exam: Negative for: calf tenderness, pedal edema - Neurological Exam Neurological exam: Alert, Oriented x3 - Skin Skin Exam: Intact, Warm Assessment and Plan - Assessment and Plan (Free Text) Assessment: Patient is a 22 year old male with past medical history recurrent groin abscess presenting with groin pain. Plan: Groin pain - afebrile, no leukocytosis - warm compresses - keep area dry - continued management per primary team - no surgical intervention indicated at this time - further recs per Dr. Brandon Pascual PGY-1
[2018-08-12] MEDS: Nystatin 100,000 Units/gm Topical Pow(15 gm) TOP SCH (09:12)
--- NOTE | 2018-08-12 09:12 | CP.PCM.PN ---
<Zachary Carey - Last Filed: 08/12/18 12:49> Subjective - Date & Time of Evaluation Date of Evaluation: 08/12/18 Time of Evaluation: 07:20 - Subjective Subjective: Infectious disease progress note: Pt seen and examined at bedside. No acute events overnight. Patient still complains about some tenderness in the groin area. No other complaints. 12 Point ROS performed and neg other than stated above. Objective - Vital Signs/Intake and Output Vital Signs (last 24 hours): Temp Pulse Resp BP Pulse Ox 97.7 F 54 L 18 101/60 99 08/12/18 08:10 08/12/18 08:10 08/12/18 08:10 08/12/18 08:10 08/12/18 08:10 Intake and Output: 08/12/18 08/12/18 06:59 18:59 Intake Total 1740 Output Total 600 Balance 1140 - Medications Medications: Current Medications Heparin Sodium (Porcine) (Heparin) 5,000 units SC Q8 [facility]; Protocol Last Admin: 08/12/18 05:55 Dose: 5,000 units Vancomycin HCl (Vancomycin 1gm) 1 gm in 250 mls @ 167 mls/hr IVPB Q12H [facility] Last Admin: 08/11/18 23:29 Dose: 167 mls/hr Morphine Sulfate (Morphine) 1 mg IVP Q4H PRN PRN Reason: Pain, moderate (4-7) Last Admin: 08/12/18 08:15 Dose: 1 mg Nicotine (Nicoderm Cq) 1 patch TD DAILY [facility] Last Admin: 08/11/18 10:10 Dose: 1 patch Nystatin (Nystop Topical Powder) 0 gm TOP QID [facility] Last Admin: 08/11/18 21:50 Dose: 1 applic - Labs Labs: 08/12/18 06:00 08/12/18 06:00 Assessment and Plan - Assessment and Plan (Free Text) Assessment: 22 M with PMHx of recurrent groin cellulitis/abscess, orchitis who presents to the [facility] presenting with left groin cellulitis. - Cont abx with Vancomycin - F/u STD work up with G&C, and HIV - CT showed chronic phlegmon formation of the groin therefore rec biopsy - CT pelvis showed chronic phlegmon formation - may need further evaluation his symptoms dont improve with abx - F/u septic work up - blood cx neg thus far - Cont to monitor Case and plan was reviewed and discussed with Dr Connolly. <Kevin Connolly - Last Filed: 08/12/18 18:09> Objective - Vital Signs/Intake and Output Vital Signs (last 24 hours): Temp Pulse Resp BP Pulse Ox 97.7 F 54 L 18 101/60 99 08/12/18 08:10 08/12/18 08:10 08/12/18 08:10 08/12/18 08:10 08/12/18 08:10 Intake and Output: 08/12/18 08/12/18 06:59 18:59 Intake Total 1740 Output Total 600 Balance 1140 - Labs Labs: 08/12/18 06:00 08/12/18 06:00 Assessment and Plan - Assessment and Plan (Free Text) Assessment: Infectious diseases Attending Physician Attestation Patient seen and examined, discussed with medical staffing coordinator. I have reviewed the patient's history of present illness, past medical, social, personal and family histories, pertinent physical exam findings, course so far in this hospital admission, pertinent laboratory and imaging results. I agree with the above findings, assessment and plan. In addition, continue Vancomycin for groin cellulitis. REviewed CT pelvis - questionable inflammatory mass, would recommend biopsy for pathology and cultures. Follow up STI work up, may add Doxycycline and consider Augmentin.
[2018-08-12] MEDS ORDERED: Oxycodone/Acetaminophen 5/325 mg Tab PO PRN (11:10)
[2018-08-12] MEDS: Vancomycin 1gm in NS 250ml 1 GM/250 ML BAG IVPB SCH (12:04)
--- NOTE | 2018-08-12 17:52 | CP.PCM.DIS ---
<B[facility]iver - Last Filed: 08/12/18 17:48> Provider - Provider Date of Admission: 08/10/18 21:42 Attending physician: Yordy Bonilla MD Primary care physician: NO PRIMARY CARE PROVIDER Consults: 08/10/18 23:17 Physician Consult Routine Comment: Consulting Provider: James Taylor Consulting Physician: James Taylor Reason for Consult: I&D 08/10/18 23:18 Physician Consult Routine Comment: Consulting Provider: Kevin Connolly Consulting Physician: Kevin Connolly Reason for Consult: groin abscess Time Spent in preparation of Discharge (in minutes): 35 Hospital Course - Lab Results Lab Results: Micro Results 08/10/18 21:40 Blood Blood Culture - Preliminary NO GROWTH AFTER 24 HOURS 08/10/18 21:10 Blood Blood Culture - Preliminary NO GROWTH AFTER 24 HOURS Most Recent Lab Values WBC 10.4 10^3/uL (4.5-11.0) 08/12/18 06:00 RBC 5.07 10^6/uL (3.5-6.1) 08/12/18 06:00 Hgb 14.5 g/dL (14.0-18.0) 08/12/18 06:00 Hct 44.2 % (42.0-52.0) 08/12/18 06:00 MCV 87.2 fl (80.0-105.0) 08/12/18 06:00 MCH 28.6 pg (25.0-35.0) 08/12/18 06:00 MCHC 32.8 g/dl (31.0-37.0) 08/12/18 06:00 RDW 13.6 % (11.5-14.5) 08/12/18 06:00 Plt Count 222 10^3/uL (120.0-450.0) 08/12/18 06:00 MPV 11.3 fl (7.0-11.0) H 08/12/18 06:00 Gran % 65.9 % (50.0-68.0) 08/12/18 06:00 Lymph % (Auto) 25.6 % (22.0-35.0) 08/12/18 06:00 Caroline % (Auto) 5.7 % (1.0-6.0) 08/12/18 06:00 Eos % (Auto) 2.3 % (1.5-5.0) 08/12/18 06:00 Baso % (Auto) 0.5 % (0.0-3.0) 08/12/18 06:00 Gran # 6.82 (1.4-6.5) H 08/12/18 06:00 Lymph # (Auto) 2.7 (1.2-3.4) 08/12/18 06:00 Caroline # (Auto) 0.6 (0.1-0.6) 08/12/18 06:00 Eos # (Auto) 0.2 (0.0-0.7) 08/12/18 06:00 Baso # (Auto) 0.05 K/mm3 (0.0-2.0) 08/12/18 06:00 Sodium 140 mmol/L (132-148) 08/12/18 06:00 Potassium 3.7 mmol/L (3.6-5.0) 08/12/18 06:00 Chloride 107 mmol/L (98-107) 08/12/18 06:00 Carbon Dioxide 27 mmol/L (21-33) 08/12/18 06:00 Anion Gap 10 (10-20) 08/12/18 06:00 BUN 9 mg/dL (7-21) 08/12/18 06:00 Creatinine 0.8 mg/dl (0.8-1.5) 08/12/18 06:00 Est GFR ( Amer) > 60 08/12/18 06:00 Est GFR (Non-Af Amer) > 60 08/12/18 06:00 Random Glucose 89 mg/dL (70-110) 08/12/18 06:00 Calcium 9.0 mg/dL (8.4-10.5) 08/12/18 06:00 Total Bilirubin 0.3 mg/dL (0.2-1.3) 08/12/18 06:00 AST 20 U/L (17-59) 08/12/18 06:00 ALT 21 U/L (7-56) 08/12/18 06:00 Alkaline Phosphatase 88 U/L (38-126) 08/12/18 06:00 Total Protein 6.5 g/dL (5.8-8.3) 08/12/18 06:00 Albumin 3.8 g/dL (3.0-4.8) 08/12/18 06:00 Globulin 2.7 gm/dL 08/12/18 06:00 Albumin/Globulin Ratio 1.4 (1.1-1.8) 08/12/18 06:00 Urine Opiates Screen Positive (NEGATIVE) H 08/11/18 06:28 Urine Methadone Screen Negative (NEGATIVE) 08/11/18 06:28 Ur Barbiturates Screen Negative (NEGATIVE) 08/11/18 06:28 Ur Phencyclidine Scrn Negative (NEGATIVE) 08/11/18 06:28 Ur Amphetamines Screen Negative (NEGATIVE) 08/11/18 06:28 U Benzodiazepines Scrn Negative (NEGATIVE) 08/11/18 06:28 U Oth Cocaine Metabols Negative (NEGATIVE) 08/11/18 06:28 U Cannabinoids Screen Positive (NEGATIVE) H 08/11/18 06:28 RPR Nonreactive (NONREACTIVE) 08/11/18 07:00 HIV 1&2 Ag/Ab, 4th Gen Nonreactive (Nonreactive) 08/11/18 07:00 - Hospital Course Hospital Course: River Arriaga, PGY1 Discharge Summary for Dr. Bonilla Patient is a 22 year old male with past medical history of recurrent groin cellulitis/abscess who presented to [facility] ED for left groin pain. No associated trauma. Patient's vitals and labs were stable and within normal limits in the ED. Patient states that the pain started 2 days ago and is worsening. He described the pain to be sharp, 10/10 in severity, and denied radiation of the pain to his scrotum. He has had multiple hospitalizations one year ago for similar symptoms requiring IV antibiotics and I&D if the right testicle. This time, however, patient notes the pain is on the left. Medical team was consulted for management. Patient was admitted for left groin/scrotal abscess. CT Pelvis showed left sandy-scrotal inflammatory changes, likely infectious/inflammatory etiology. Testicular U/S was negative for torsion. Patient was placed on antibiotics, vanco, during hospital course. He was also given nystatin powder. Pain was controlled adequately with morphine. Surgery and ID was placed on consult. As per surgery, no intervention was necessary and only conservative management was recommended. Patient's pain level improved since admission but he still has moderate pain. Patient was switched to PO percocet from morphine during inpatient and tolerated it fine. Labs, imaging, and vital signs were reviewed and patient is hemodynamically stable for discharge. He will follow up at the [facility] for his appointment and referral to go see a urologist. Patient will also follow up with surgery as outpatient. Patient received Augmentin and Doxycycline scripts upon discharge and was told to continue antibiotics for 7 days. Discharge Exam - Head Exam Head Exam: ATRAUMATIC, NORMAL INSPECTION, NORMOCEPHALIC - Eye Exam Eye Exam: EOMI, Normal appearance Pupil Exam: NORMAL ACCOMODATION - ENT Exam ENT Exam: Mucous Membranes Moist - Respiratory Exam Respiratory Exam: NORMAL BREATHING PATTERN. absent: Rales, Wheezes - Cardiovascular Exam Cardiovascular Exam: RRR, +S1, +S2 - GI/Abdominal Exam GI & Abdominal Exam: Normal Bowel Sounds - Exam Additional comments: Patient has mild swelling of the left testicle. Moderate tenderness to palpation on the left groin/scrotal area. No drainage, fluctuation, or erythematous changes. - Extremities Exam Extremities exam: full ROM, normal inspection - Neurological Exam Neurological exam: Alert, Normal Gait, Oriented x3 - Psychiatric Exam Psychiatric exam: Normal Mood - Skin Skin Exam: Dry, Intact, Normal Color, Warm Discharge Plan - Discharge Medications Prescriptions: Amoxicillin/Clavulanate [Augmentin 875 MG-125 MG Tab] 1 tab PO BID #14 tab Doxycycline Hyclate 100 mg PO BID #14 capsule - Follow Up Plan Condition: STABLE Disposition: HOME/ ROUTINE Instructions: Cellulitis (DC), Cellulitis (GEN) Additional Instructions: 1. You are being prescribed two antibiotics: Augmentin (Amoxicillin/Clavulanate) 125 mg tablet twice a day for 7 days total. Doxycycline 100 mg tablet twice a day for 7 days total. 3. Please follow up with Dr. Taylor (Surgery) within 1 week of discharge. 4. Please follow up with your appointment at [facility] ([phone]) on 08/14 at 2:[address] Álvarez, for referral to Urologist at [facility] to evaluate left groin/scrotal cellulitis with previous abscess. 5. Please return to the ED if your symptoms worsen. Referrals: PCP,NO [Primary Care Provider] - Follow up with primary <Yordy Bonilla - Last Filed: 08/12/18 18:37> Provider - Provider Date of Admission: 08/10/18 21:42 Attending physician: Yordy Bonilla MD Primary care physician: NO PRIMARY CARE PROVIDER Consults: 08/10/18 23:17 Physician Consult Routine Comment: Consulting Provider: James Taylor Consulting Physician: James Taylor Reason for Consult: I&D 08/10/18 23:18 Physician Consult Routine Comment: Consulting Provider: Kevin Connolly Consulting Physician: Kevin Connolly Reason for Consult: groin abscess Hospital Course - Lab Results Lab Results: Micro Results 08/10/18 21:40 Blood Blood Culture - Preliminary NO GROWTH AFTER 24 HOURS 08/10/18 21:10 Blood Blood Culture - Preliminary NO GROWTH AFTER 24 HOURS Most Recent Lab Values WBC 10.4 10^3/uL (4.5-11.0) 08/12/18 06:00 RBC 5.07 10^6/uL (3.5-6.1) 08/12/18 06:00 Hgb 14.5 g/dL (14.0-18.0) 08/12/18 06:00 Hct 44.2 % (42.0-52.0) 08/12/18 06:00 MCV 87.2 fl (80.0-105.0) 08/12/18 06:00 MCH 28.6 pg (25.0-35.0) 08/12/18 06:00 MCHC 32.8 g/dl (31.0-37.0) 08/12/18 06:00 RDW 13.6 % (11.5-14.5) 08/12/18 06:00 Plt Count 222 10^3/uL (120.0-450.0) 08/12/18 06:00 MPV 11.3 fl (7.0-11.0) H 08/12/18 06:00 Gran % 65.9 % (50.0-68.0) 08/12/18 06:00 Lymph % (Auto) 25.6 % (22.0-35.0) 08/12/18 06:00 Caroline % (Auto) 5.7 % (1.0-6.0) 08/12/18 06:00 Eos % (Auto) 2.3 % (1.5-5.0) 08/12/18 06:00 Baso % (Auto) 0.5 % (0.0-3.0) 08/12/18 06:00 Gran # 6.82 (1.4-6.5) H 08/12/18 06:00 Lymph # (Auto) 2.7 (1.2-3.4) 08/12/18 06:00 Caroline # (Auto) 0.6 (0.1-0.6) 08/12/18 06:00 Eos # (Auto) 0.2 (0.0-0.7) 08/12/18 06:00 Baso # (Auto) 0.05 K/mm3 (0.0-2.0) 08/12/18 06:00 Sodium 140 mmol/L (132-148) 08/12/18 06:00 Potassium 3.7 mmol/L (3.6-5.0) 08/12/18 06:00 Chloride 107 mmol/L (98-107) 08/12/18 06:00 Carbon Dioxide 27 mmol/L (21-33) 08/12/18 06:00 Anion Gap 10 (10-20) 08/12/18 06:00 BUN 9 mg/dL (7-21) 08/12/18 06:00 Creatinine 0.8 mg/dl (0.8-1.5) 08/12/18 06:00 Est GFR ( Amer) > 60 08/12/18 06:00 Est GFR (Non-Af Amer) > 60 08/12/18 06:00 Random Glucose 89 mg/dL (70-110) 08/12/18 06:00 Calcium 9.0 mg/dL (8.4-10.5) 08/12/18 06:00 Total Bilirubin 0.3 mg/dL (0.2-1.3) 08/12/18 06:00 AST 20 U/L (17-59) 08/12/18 06:00 ALT 21 U/L (7-56) 08/12/18 06:00 Alkaline Phosphatase 88 U/L (38-126) 08/12/18 06:00 Total Protein 6.5 g/dL (5.8-8.3) 08/12/18 06:00 Albumin 3.8 g/dL (3.0-4.8) 08/12/18 06:00 Globulin 2.7 gm/dL 08/12/18 06:00 Albumin/Globulin Ratio 1.4 (1.1-1.8) 08/12/18 06:00 Urine Opiates Screen Positive (NEGATIVE) H 08/11/18 06:28 Urine Methadone Screen Negative (NEGATIVE) 08/11/18 06:28 Ur Barbiturates Screen Negative (NEGATIVE) 08/11/18 06:28 Ur Phencyclidine Scrn Negative (NEGATIVE) 08/11/18 06:28 Ur Amphetamines Screen Negative (NEGATIVE) 08/11/18 06:28 U Benzodiazepines Scrn Negative (NEGATIVE) 08/11/18 06:28 U Oth Cocaine Metabols Negative (NEGATIVE) 08/11/18 06:28 U Cannabinoids Screen Positive (NEGATIVE) H 08/11/18 06:28 RPR Nonreactive (NONREACTIVE) 08/11/18 07:00 HIV 1&2 Ag/Ab, 4th Gen Nonreactive (Nonreactive) 08/11/18 07:00 Attending/Attestation - Attestation I have personally seen and examined this patient.: Yes I have fully participated in the care of the patient.: Yes I have reviewed all pertinent clinical information, including history, physical exam and plan: Yes Notes (Text): 08/12/18 18:35 22 year old male with past medical history of groin abscess who presented with complaint of left groin pain. He was treated for scrotal cellulitis and left groin pain. CT pelvis showed left sandy-scrotal inflammatory changes, likely infection/inflammatory etiology. Testicular ultrasound showed soft tissue mass, possible hemorrhagic process vs infectious etiology. He was seen by ID and surgery who recommended conservative management with iv antibiotics and warm compress. Surgery did not recommend draining at this time. Patient reports his symptoms improved. He is discharged home to follow up at [facility]. Discharged on po antibiotics. Follow up with surgery and urology for outpatient follow up for possible drainage vs biopsy. Yordy Bonilla MD Hospitalist.
== END 2018-08-12 13:54 | disposition home or self-care (01) ==
LOC: ED 20:30 → ERH 21:42 → 3RNO 08-11 01:05
PROVIDERS: ADMIT Internal Medicine; ATTEND Internal Medicine
DX: L03.314 Cellulitis of groin (principal); L02.214 Cutaneous abscess of groin; N45.2 Orchitis; F12.90 Cannabis use, unspecified, uncomplicated; F17.210 Nicotine dependence, cigarettes, uncomplicated; J45.909 Unspecified asthma, uncomplicated; N49.2 Inflammatory disorders of scrotum; Z83.3 Family history of diabetes mellitus; Z82.49 Family history of ischemic heart disease and other diseases of the circulatory system
CPT/HCPCS: 36415; 72193; 80053; 80324; 80345; 80346; 80349; 80353; 80358; 80361; 83992; 85025; 85027; 86592; 87040; 87389; 93975; 96365; 96366; 96374; 99284; G0378; J1644; J2270; J2543; Q9967